=== PATIENT | female | born 1960 | race Caucasian/White ===

== ENCOUNTER → 2017-10-20 08:28 | Outpatient (CLI) | payer OTHER, SELFPAY ==
[2017-10-20 12:36] LABS: Absolute Lymphocyte Count 2.02 X10^3/ul (0.83-4.51); Absolute Neutrophil Count 4.3 X10^3/uL (2.0-7.7); Basophil# 0.08 X10^3/uL; Basophil% 1.1 % (0-1); Eosinophil# 0.45 X10^3/uL; Eosinophils% 6.1 % (0-5); Hematocrit 39.5 % (37-47); Hemoglobin 12.4 g/dl (12.0-15.0); Lymphocyte # 2.02 X10^3/ul (4.0); Lymphocyte % 27.4 % (19-41); Mean Corp Hgb Conc 31.4 g/gl (32-36); Mean Corpuscular Hgb 27.1 pg (27.0-32.0); Mean Corpuscular Volume 86.4 fL (81-99); Mean Platelet Vol. 11.9 fl (6.2-12.0); Monocyte# 0.47 X10^3/uL; Monocyte% 6.4 % (0-10); Neutrophil # 4.34 X10^3/uL (2.7-7.7); Neutrophil % 58.9 % (47-70); Platelet Count 285 K/mm3 (150-450); RBC Distribution Width CV 15.3 % (11.6-14.6); RBC Distribution Width SD 48.4 fl (35.1-43.9); Red Blood Count 4.57 M/mm3 (4.2-5.4); White Blood Count 7.4 K/mm3 (4.4-11.0)
[2017-10-20 12:37] LABS: POSITIVE COUNT NO; POSITIVE DIFFERENTIAL NO; POSITIVE MORPHOLOGY NO
[2017-10-20 13:05] LABS: ALB/GLOB Ratio 0.9 RATIO (0.9-2.4); AST(SGOT) 23 U/L (15-37); Alanine Aminotransfer ALT/SGPT 29 U/L (13-56); Albumin, Serum 3.6 g/dL (3.2-5.0); Alkaline Phosphatase 95 U/L (45-117); Anion Gap 7 (5-15); BUN 17 mg/dL (7-18); Calcium,Total 9.1 mg/dL (8.5-10.1); Chloride 103 mmol/L (98-107); Cholesterol 189 mg/dL (200); EST Glomerular Filtration Rate 69 mL/min (>60); Est Glom Filt Rate - Afr Amer 83 mL/min (>60); Globulin 4.2 g/dL (2.2-4.2); Glucose 80 mg/dL (74-106); High Density Lipoprotein 62 mg/dL; Potassium 3.8 mmol/L (3.5-5.1); Protein, Total 7.8 g/dL (6.4-8.2); Sodium Level 140 mmol/L (136-145); Thyroid Stim Hormone (TSH) 1.76 uIU/mL (0.358-3.74); Triglycerides 107 mg/dL; Very Low Density Lipoprotein 21 mg/dL (5-40)
== END ==
PROVIDERS: Visit Provider Family Medicine
DX: I10 Essential (primary) hypertension (principal); E03.9 Hypothyroidism, unspecified; E66.9 Obesity, unspecified
CPT/HCPCS: 36415; 80053; 80061; 84443; 85025

== ENCOUNTER → 2017-11-10 19:14 | Outpatient (CLI) | payer OTHER, SELFPAY ==
--- NOTE | 2017-11-10 11:15 | EMB_PTH ---
PATIENT: PORSHA PEDRO LOC: [facility] U#:[id number] AGE/SX: 64/F ROOM: RE11/10/[address]: Dr. Mary Mendiola MD : 1960 BED: DIS: SPEC #: [id number] RECD: 11/10/17 17:18 STATUS: VERÓNICA SLIME #: [id number] ABIDA: 11/10/17 11:[address]: Mary Mendiola DEPT: SURGICAL PATHOLOGY RECD BY: Dulce Small Tissues: Endometrium, NOS Procedures: Surgery Specimen Level IV HEADER OPERATION: Endometrial biopsy PRE-OP DIAGNOSIS: Abnormal uterine bleeding TISSUE SUBMITTED: Endometrial lining MICROSCOPIC DIAGNOSIS Endometrial biopsy: Mildly disordered proliferative endometrium. ELVA:meaghan 11/12/17 MICROSCOPIC DESCRIPTION Slides are reviewed. GROSS DESCRIPTION Received is one container labeled with the patient's name and not further designated. The specimen consists of multiple irregular fragments of garcia mucoid tissue that in aggregate measure 2.5 x 2 x 0.1 cm. The specimen is totally submitted in one cassette. / SJ:rg 11/11/17 TC:5 CPT: 90107
[2017-11-15 10:06] LABS: HPV APTIMA, High Risk Positive (Negative)
== END ==
PROVIDERS: Visit Provider Obstetrics & Gynecology
DX: Z12.4 Encounter for screening for malignant neoplasm of cervix (principal); N93.9 Abnormal uterine and vaginal bleeding, unspecified
CPT/HCPCS: 88175; 88305; G0145

== ENCOUNTER → 2017-11-24 16:43 | Outpatient (CLI) | payer OTHER, SELFPAY ==
--- NOTE | 2017-11-24 16:44 | BI_ITS ---
MAMMOGRAPHY - BILATERAL SCREENING 3-D CRUZ SYNTHESIS REASON FOR EXAM: Female, 57 years old. Bilateral Screening 3-D tomosynthesis PERTINENT HISTORY: No significant family history. TECHNIQUE: 2-D mammograms and 3-D Cruz synthesis of the breast (s) were performed. CAD was performed. COMPARISON: 2016 FINDINGS: The breast composition is almost entirely fat. Scattered benign calcifications are seen. No dense spiculated masses or suspicious microcalcifications are identified. No architectural distortion is identified. There is no skin thickening or retraction. There has been no significant change since the prior study. BI/SCREENING MAMM (CAD), BILAT IMPRESSION: No mammographic signs of malignancy. Routine yearly mammograms recommended. ASSESSMENT CATEGORY: BIRADS Category 1: Negative. A letter regarding these results will be sent to the patient by the facility within 30 days. FOLLOW UP RECOMMENDATION: Yearly follow up mammogram recommended. (A) Approximately 10% of breast cancers are not detected by mammography. A normal mammogram should not delay biopsy of a clinically suspicious abnormality. Electronically Signed: Luis Hernandez MD at 13:25 EDT , Service support ,
== END ==
PROVIDERS: Family Provider Family Medicine; PCP Family Medicine; Visit Provider Obstetrics & Gynecology
DX: Z12.31 Encounter for screening mammogram for malignant neoplasm of breast (principal)
CPT/HCPCS: 77063; 77067

== ENCOUNTER → 2017-12-04 13:42 | Outpatient (CLI) | payer OTHER, SELFPAY ==
--- NOTE | 2017-12-04 13:44 | CT_ITS ---
STUDY: CT ABDOMEN AND PELVIS WITH CONTRAST REASON FOR EXAM: Female, 57 years old. INTRA-ABDOMINAL AND PELVIC SWELLING RADIATION DOSAGE (If Supplied By Facility): CTDIvol = ( 22.77 ) mGy, DLP = ( 2197.94 ) mGycm TECHNIQUE: Transaxial images were obtained from the dome of the diaphragm to the symphysis pubis without oral contrast. 100 ml of Isovue 300 contrast was administered. Sagittal and coronal images were reconstructed. Individualized dose optimization techniques were used for this CT. COMPARISON: None. FINDINGS: The visualized lung bases are unremarkable. The visualized portions of the heart are within normal limits. Normal liver. Normal gallbladder and extrahepatic biliary system. Normal spleen. There appears to be mild hypodensity of the inferior pancreatic head and uncinate process measuring 4.5 cm. See series 2 image 47. Normal bilateral adrenal glands. Normal right kidney. Normal left kidney. Normal visualized stomach. Normal small intestine. Normal colon. There is non-visualization of the appendix. There is mild atherosclerotic calcification of the abdominal aorta, without a demonstrated aneurysm. Normal inferior vena cava. There is a large cystic structure in the lower abdomen and pelvis measuring 23 x 18 x 12 cm. It measures slightly above simple fluid attenuation and is well-circumscribed and homogenous. It may arise from the right adnexa. Normal urinary bladder. Normal abdominal wall. There are diffuse degenerative changes of the visualized lumbar spine. CT/Abdomen/Pelvis WITH Contrast IMPRESSION: There is a large cystic structure in the abdomen and pelvis. It may arise from the right adnexa. There appears to be mild hypodensity of the pancreas. Electronically Signed: Deborah Amador MD at 14:35 EDT , Service support ,
[2017-12-06 09:07] LABS: Cancer Antigen 125 33.3 U/mL (0.0-38.1); Carcinoembryonic Antigen 1.2 ng/mL (0.0-4.7)
== END ==
PROVIDERS: Nurse Practitioner Women's Health; Family Provider Family Medicine; PCP Family Medicine; Visit Provider Obstetrics & Gynecology
DX: R19.00 Intra-abdominal and pelvic swelling, mass and lump, unspecified site (principal); N95.0 Postmenopausal bleeding
CPT/HCPCS: 36415; 74177; 82378; 86304; Q9967

== ENCOUNTER 2018-01-13 10:49 | Inpatient (IN) | payer OTHER, SELFPAY ==
[2018-01-06 10:58] VITALS: BP 148/64; PULSE 84; RESP 18; TEMP 37.2; O2SAT 95; BMI 49.3
[2018-01-06 12:10] LABS: Hematocrit 37.2 % (37-47); Hemoglobin 11.7 g/dl (12.0-15.0); Mean Corp Hgb Conc 31.5 g/gl (32-36); Mean Corpuscular Hgb 27.5 pg (27.0-32.0); Mean Corpuscular Volume 87.3 fL (81-99); Mean Platelet Vol. 11.1 fl (6.2-12.0); Platelet Count 267 K/mm3 (150-450); RBC Distribution Width CV 15.1 % (11.6-14.6); Red Blood Count 4.26 M/mm3 (4.2-5.4); White Blood Count 8.1 K/mm3 (4.4-11.0)
[2018-01-06 12:11] LABS: Scan Indicated on CBC? Y/N NO
[2018-01-06 13:07] LABS: Thyroid Stim Hormone (TSH) 1.22 uIU/mL (0.358-3.74)
[2018-01-13] VITALS (9 sets, daily range): BP systolic 147–163; BP diastolic 75–90; PULSE 71–99; RESP 16–18; TEMP 36.1–37.1; O2SAT 94–100; BMI 49.3
--- NOTE | 2018-01-13 | HYST_PTH ---
PATIENT: PORSHA PEDRO LOC: [facility] U#:[id number] AGE/SX: 57/F [place] [facility] [place]/13/[address]: Dr. Mary Mendiola MD : 1960 BED: 1 DIS: 01/15/2018 SPEC #: [id number] RECD: 01/14/18 09:53 STATUS: VERÓNICA REAdelso #: [id number] ABIDA: 01/13/18 00:[address]: Mary Mendiola DEPT: SURGICAL PATHOLOGY RECD BY: Ry Matos ENTERED: 01/14/18 09:53 SP TYPE: HYSTERECT OTHR DR: Dr. Margot Cerda MD Tissues: Uterus, NOS Procedures: Surgery Specimen Level V HEADER OPERATION: Total abdominal hysterectomy, salpingo-oophorectomy PRE-OP DIAGNOSIS: Postmenopausal bleeding, pelvic mass, intramural leiomyoma of uterus TISSUE SUBMITTED: Uterus, bilateral fallopian tubes and ovaries MICROSCOPIC DIAGNOSIS Uterus, bilateral fallopian tubes and ovaries, abdominal hysterectomy and salpingo-oophorectomy: Cervix ? chronic cystic cervicitis. Endometrium ? disordered proliferative endometrium to focal simple cystic hyperplasia without atypia. Endometrial polyps ? benign endometrial polyps with simple cystic hyperplasia without atypia. Myometrium ? adenomyosis. Bilateral fallopian tubes - no pathologic diagnosis. Left ovary ? mesothelial inclusion cysts. 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 SJ:meaghan 01/15/18 COMMENT Please make reference to previous specimen ([id number]) endometrial biopsy with diagnosis of mildly disordered proliferative endometrium. MICROSCOPIC DESCRIPTION Slides are reviewed. GROSS DESCRIPTION Received in fixative is one container labeled with the patient's name and designated uterus, bilateral fallopian tubes and ovaries. The specimen consists of a hysterectomy specimen consisting of uterus with cervix, attached proximal portion of the right fallopian tube and detached left fallopian tube and ovary and detached large cystic ovary with stretched out fallopian tube. The uterus with cervix weighs 116 gm and measures 9.5 x 7 x 4 cm. The serosal surface is garcia, glistening. The ectocervical mucosa is unremarkable. The external os is slit-like in contour. The endocervical canal measures 3.5 cm in length and the endocervical mucosa is garcia, glistening and unremarkable. The triangular endometrial cavity measures 5.5 cm in length and up to 3 cm in width. The endometrial cavity shows two polyps, one in the anterior uterine wall measuring 1.5 x 1 x 0.5 cm and one in the posterior uterine wall measuring 4 x 1.5 x 0.3 cm. The myometrial wall underneath the polyp is not indurated. The rest of the endometrium is garcia, glistening and measures <0.1 cm in thickness. Sections of the myometrial wall do not reveal any mass lesion and it measures up to 2 cm in thickness. The left fallopian tube measures 5 cm in length and 0.5 cm in diameter. The fimbrial end is identified. Sections reveal unremarkable cut surfaces. The left ovary measures 2.5 x 1 x 0.8 cm. Sections reveal unremarkable cut surfaces. Attached proximal portion of right fallopian tube measures 4 cm in length and 0.5 cm in diameter. Sections reveal unremarkable cut surfaces. The cystic ovary measures 26 x 21 x 15 cm and weighs 2600 gm. The stretched fallopian tube measures 19 cm in length and 0.3 cm in diameter. The fimbrial end is identified. The external surface of the ovary is smooth. No papillation is identified. The external surface is inked black. Focal areas of papillations are noted. The largest area of papillation measures 3 x 2 x 1 cm. The rest of the cyst wall is smooth and measures 0.1 cm in thickness. The ovary contains abhijeet, cloudy fluid. 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 endometrial polyps with underlying uterine wall, polyps are entirely submitted, 10 ? right fallopian tube and ovary, 11 ? rest of the left ovary, left ovary is submitted in entirety, 12 ? attached proximal portion of right fallopian tube, 13 ? right fallopian tube stretched over the cystic right ovary, 14-19 ? right ovary (15-19 contains the cystic ovary with area of papillations). / ELVA:meaghan 01/14/18 TC:1 CPT: 29583 x2
--- NOTE | 2018-01-13 10:06 | HP.PCM_ITS ---
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 Accompanied by: Is patient in pain?: Yes Pain scale (1-10): 2 Allergies penicillin G Allergy (Mild, Verified 12/18/17 10:24) Other Medications aspirin 81 mg chewable tablet 81 mg PO QDAY 11/10/17 [History Confirmed 12/18/17 ] cinnamon bark 500 mg capsule mg PO 11/10/17 [History Confirmed 12/18/17] clobetasol 0.05 % topical ointment 1 applic TOPICAL QHS #30 g 11/10/17 [Rx Confirmed 12/18/17] halobetasol propionate 0.05 % topical cream 1 applic TOPICAL QDAY 11/10/17 [ History Confirmed 12/18/17] levothyroxine 125 mcg tablet 125 mcg PO QDAY 11/10/17 [History Confirmed ] multivitamin,vb-vwgz-gfmuctqb tablet 1 tab PO QDAY 11/10/17 [History Confirmed 12/18/17] valsartan 160 mg-hydrochlorothiazide 25 mg tablet 1 tab PO QDAY 11/10/17 [ History Confirmed 12/18/17] fluoxetine 40 mg capsule 40 mg PO .every other day cap 12/18/17 [History Confirmed 12/18/17] Is last menstrual period known: No Patient : No : No PFSH PFSH Medical History Thyroid disorder (Acute) Surgical History History of ankle surgery (Acute) History of hernia repair (Acute) Family History Father Cancer lung-smoker Mother Diabetes Social History Smoking Status: Never smoker alcohol intake: current details: social substance use type: does not use caffeine: Yes what type of physical activity do you participate in: walking seatbelt use: always do you feel safe at home: Yes additional social history: Jacob- Both are retired Pregancy History 4 Elective abortions Hx Para 5 Spontaneous abortions Hx # Term Pregnancies Ectopic pregnancies Hx # Pregnancies Multiple births 1 # of living children Past Pregnancies Del. Date Name GA/Weeks Outcome Route Bth Weight Infant Gen Labor Lgth Anesthesia Del Locatn Provider FOB Unknown 1976 Pietro Unknown 1977 Crystal Unknown 1984 Lucila and Kym Unknown 1985 Eric Delivery Date: No notes to display Delivery Date: On 11/10/17 @ 11:11 Mary Mendiola TTTS around and shortly after Delivery Date: No notes to display Delivery Date: No notes to display HPI Colposcopy/pre op: Details: PORSHA PEDRO is a 57 year old who presents for preoperative visit. she is still having intermittent bleeding and pelvic pain and pressure. she wants to have a hysterectomy in addition to the ovarian removal due to the bleeding. she had a normal CEA and CA125 Female Reproductive History Questions: Metorrhagia: Yes, Sexually active: Yes, Dyspareunia: No ROS Const Constitutional: Reports system reviewed and no additional complaints, except as docu; denies chills, fever(s), weight loss or weight gain GI GI: Reports as per HPI; denies vomiting, nausea, constipation, cramping, bloating or abdominal pain : Reports as per HPI; denies vaginal dryness, vaginal discharge, urinary urgency, urinary frequency or urinary incontinence Exam Const General: cooperative, healthy appearing, comfortable, well developed Orientation: alert HENMT Head: normal to inspection Neck Neck: normal visual inspection Thyroid: thyroid normal Resp Effort & Inspection: normal respiratory effort GI Inspection: normal to inspection, distended Palpation: soft, no guarding, mass (large mass to 2 cm above umbilicus) Assessment & Plan Problems 1. Post-menopausal bleeding N95.0 us, emb 2. Pelvic mass R19.00 ct abdomen pelvis ordered 3. Intramural leiomyoma of uterus D25.1 Plan plan TAHBSO. normal cea and ca125. 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 discussed surgical risks including risks of anesthesia, infection , bleeding, injury to bowel, bladder or blood vessels, and patient wishes to proceed with surgery. Coding Level of Care Code Off vis,est,level 4 Diagnoses Post-menopausal bleeding N95.0 Pelvic mass R19.00 Intramural leiomyoma of uterus D25.1 Uterine leiomyoma location: intramural UPDATE- I have seen the patient and performed any clinically relevant updates to the history and physical exam. Mary Mendiola MD
[2018-01-13] MEDS: metroNIDAZOLE 500 MG Tablet PO (11:25)
[2018-01-13] MEDS: Lactated Ringers 1,000 ML 125 ML IV (18:06)
[2018-01-13] MEDS: Ketorolac 30 MG/ML Syringe IV (18:06)
--- NOTE | 2018-01-13 20:50 | PCM.OPRPT ---
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 She was prepped and draped in the normal sterile fashion. Bryant catheter was placed in the bladder SCDs were on and preoperative antibiotics were given. A Pfannenstiel skin incision was made with the scalpel and carried through the unknowingly of the fascia with the scalpel fascia was nicked in the midline incision extended laterally. Rectus bellies were dissected off superiorly and inferiorly sharply and bluntly and peritoneum entered digitally incision stretched laterally and an Kiki retractor was placed after the bowel was packed away. The right ovary was identified and noted to be enlarged significantly measuring approximately 25 x 20 x 18 cm. It was smooth in appearance and fluctuant being cystic. It was freely mobile and was lifted up out of the incision in the infundibular ligament and utero-ovarian ligament were both transected and suture ligated with 0 Monocryl. The left ovary and tube were noted to be within normal limits and the uterus was mildly enlarged with small fibroids present. The round ligaments were transected bilaterally and suture ligated and the broad ligament was opened up and the infundibulopelvic ligament vessels were double clamped cut and suture ligated with 0 Monocryl. The bladder flap was created taking down the vesicouterine peritoneum and the uterine vessels were skeletonized and clamped cut and suture ligated with 0 Monocryl bilaterally. The cardinal ligament were then clamped cut and suture ligated bilaterally with 0 Monocryl followed by progressive bites of the parametrium down to the level of the cervix. Good attention was paid to keep the bladder inferior to the clamps and dissected off of the cervix and lower uterine corpus. The clamps were then placed underneath the cervix bilaterally the uterus amputated off of the vaginal stump and the vaginal cuff was suture ligated with 0 Monocryl [id number] sutures ?3. Excellent hemostasis was noted with some raw appearance which was covered with Espinoza. all instruments removed from the abdomen and the peritoneum was closed with 3-0 Monocryl fascia closed with 0 PDS barbed suture, subcutaneous tissue reapproximated with 3-0 Monocryl and the skin closed with 4-0 Monocryl. Patient was awoken and taken recovery in stable condition. Grafts/Implants Used: none - Complications none - Admit VTE Documentation VTE Present on Admission: No
[2018-01-13] MEDS: oxyCODONE 5 MG Tablet PO (21:26)
[2018-01-14] MEDS: Ketorolac 30 MG/ML Syringe IV ×3 (00:02→12:30)
[2018-01-14] MEDS: Lactated Ringers 1,000 ML 125 ML IV ×2 (01:42→10:41)
[2018-01-14 03:20] VITALS: BP 133/65; PULSE 99; RESP 18; TEMP 36.3; O2SAT 94
[2018-01-14 05:32] LABS: Hematocrit 33.6 % (37-47); Hemoglobin 10.7 g/dl (12.0-15.0); Mean Corp Hgb Conc 31.8 g/gl (32-36); Mean Corpuscular Hgb 27.6 pg (27.0-32.0); Mean Corpuscular Volume 86.8 fL (81-99); Mean Platelet Vol. 11.2 fl (6.2-12.0); Platelet Count 304 K/mm3 (150-450); RBC Distribution Width CV 15.1 % (11.6-14.6); RBC Distribution Width SD 47.4 fl (35.1-43.9); Red Blood Count 3.87 M/mm3 (4.2-5.4)
[2018-01-14 05:33] LABS: Scan Indicated on CBC? Y/N NO
[2018-01-14] MEDS: Levothyroxine 125 MCG Tablet PO (05:38)
[2018-01-14] MEDS: oxyCODONE 5 MG Tablet PO ×3 (07:16→20:46)
[2018-01-14 07:45] VITALS: O2SAT 92
[2018-01-14 10:30] VITALS: BP 101/67; PULSE 75; RESP 18; TEMP 37; O2SAT 95
[2018-01-14] MEDS: Multivitamins,Ther W-Minerals Tablet 1 TABLET PO (10:33)
[2018-01-14] MEDS: hydroCHLOROthiazide 25 MG Tablet PO (10:33)
[2018-01-14] MEDS: Enoxaparin 40 MG/0.4 ML Syringe SC (10:41)
[2018-01-14] MEDS: FLUoxetine 20 MG Capsule 40 MG PO (10:41)
[2018-01-14 16:00] VITALS: BP 105/52; PULSE 72; RESP 16; TEMP 36.4; O2SAT 95
[2018-01-14] MEDS: Acetaminophen 500 MG Tablet 1000 MG PO (16:06)
[2018-01-14] MEDS: Ketorolac 10 MG Tablet PO (17:56)
--- NOTE | 2018-01-14 20:42 | PCM.PN.OB ---
Subjective: doing well no complaints no cp sob nv tolerating po - Physical Exam General: Alert, Oriented x3 Vital Signs Temp Pulse Resp BP Pulse Ox 97.6 F L 72 16 105/52 L 95 01/14/18 16:00 01/14/18 16:00 01/14/18 16:00 01/14/18 16:00 01/14/18 16:00 Oxygen Flow Rate (L/min) 1 Oxygen Delivery Method Room Air Weight: 324 lb 4.8 oz Body Mass Index (BMI) 49.3 Intake and Output for Last 24 Hours 01/12/18 01/13/18 01/14/18 23:59 23:59 23:59 Intake Total 1950 / 1950 4143 / 4143 Output Total 635 / 635 1335 / 1335 Balance 1315 / 1315 2808 / 2808 Laboratory Tests Past 24 Hrs 01/14/18 05:05 WBC 12.0 H RBC 3.87 L Hgb 10.7 L Hct 33.6 L MCV 86.8 MCH 27.6 MCHC 31.8 L RDW 15.1 H RDW Differential 47.4 H Plt Count 304 MPV 11.2 Medical Necessity - Tobacco Use Smoking Status: Former smoker Assessment/Plan All Active Problems (Last Reviewed 12/18/17 @ 10:24 by Margot Asher) Pelvic mass (Acute) Post-menopausal bleeding (Acute) s/p tahbso routine care ambulate increase po intake
--- NOTE | 2018-01-14 20:45 | DCINST_ITS ---
Discharge Diet: No Restrictions Discharge Activity: Return to Normal Activity, May Not Drive - while taking narcotic pain medications. May resume sexual activity in: 6-8 weeks Call your doctor if your incision/area has: Continuous Slow Oozing, Sudden Increased Bleeding, Increased Pain/ Swelling, Increased Redness, Foul Smelling Discharge Call your doctor if you observe: Fever of 101 or Higher Allergies/Adverse Reactions: Allergies penicillin G Allergy (Mild, Verified 01/06/18 10:54) Other METAL Allergy (Uncoded 01/06/18 10:55) Other Medications to take at Discharge aspirin 81 mg chewable tablet 81 mg PO QDAY 11/10/17 cinnamon bark 500 mg capsule 1,000 mg PO DAILY 11/10/17 levothyroxine 125 mcg tablet 125 mcg PO QDAY 11/10/17 multivitamin,cu-ctvv-ssqsmcpu tablet 1 tab PO QDAY 11/10/17 valsartan 160 mg-hydrochlorothiazide 25 mg tablet 1 tab PO QDAY 11/10/17 fluoxetine 40 mg capsule 40 mg PO .every other day cap 12/18/17 Clobetasol Propionate 1 applic TOPICAL QHS 01/06/18 Naproxen [Naprosyn] 250 - 500 mg PO Q8H PRN PRN #30 tab 01/13/18 Oxycodone HCl/Acetaminophen [Percocet 5-325] 1 - 2 tablet PO Q4H PRN PRN 7 Days #28 tablet 01/13/18 The following prescriptions were given: Oxycodone HCl/Acetaminophen [Percocet 5-325] 1 - 2 tablet PO Q4H PRN PRN 7 Days #28 tablet PRN Reason: Moderate-Severe pain Naproxen [Naprosyn] 250 - 500 mg PO Q8H PRN PRN #30 tab PRN Reason: MILD PAIN Primary Care Physician: Margot Cerda MD [Primary Care Provider] - Test Results: Test results from this visit will be discussed in further detail at your follow- up appointment, if applicable. Please Follow Up With: Mary Mendiola MD - [phone] When: in 2 weeks
[2018-01-14 20:48] VITALS: BP 106/53; PULSE 69; RESP 16; TEMP 36.8; O2SAT 95
[2018-01-15] MEDS: Ketorolac 10 MG Tablet PO ×3 (00:24→11:12)
[2018-01-15 00:28] VITALS: BP 106/60; PULSE 84; RESP 16; TEMP 36.8; O2SAT 95
[2018-01-15] MEDS: oxyCODONE 5 MG Tablet PO ×2 (04:12→09:16)
[2018-01-15 05:57] VITALS: BP 124/55; PULSE 78; RESP 16; TEMP 36.8; O2SAT 92
[2018-01-15] MEDS: Levothyroxine 125 MCG Tablet PO (05:59)
[2018-01-15 07:21] VITALS: O2SAT 93
[2018-01-15 07:55] VITALS: BP 118/62; PULSE 85; RESP 18; TEMP 36.7; O2SAT 94
[2018-01-15] MEDS: Enoxaparin 40 MG/0.4 ML Syringe SC (07:58)
[2018-01-15] MEDS: hydroCHLOROthiazide 25 MG Tablet PO (07:59)
[2018-01-15] MEDS: Multivitamins,Ther W-Minerals Tablet 1 TABLET PO (07:59)
--- NOTE | 2018-01-15 10:50 | CASEMGMT ---
SEE RN INO ASSESS LINK: D/C PLAN: HOME Intro role to RN INO. Pt sitting up in chair, awake/alert/oriented. Pt states was independent @ home, required no DME, and denies discharge needs. CM to follow for any discharge planning needs that may arise. Pt reports her has already picked up her new prescriptions. Kamille STEWARTN HEATH [place]CK[place]
== END 2018-01-15 13:33 | disposition home or self-care (01) | DRG 743 ==
LOC: ACINP 10:50 → MS2 12:39
PROVIDERS: Admitting Provider Obstetrics & Gynecology; Family Provider Family Medicine; PCP Family Medicine; Visit Provider Obstetrics & Gynecology
PROC: 0UT90ZZ Resection of Uterus, Open Approach (ICD-10-PCS; principal; 2018-01-13 12:10)
DX: N95.0 Postmenopausal bleeding (principal); D25.9 Leiomyoma of uterus, unspecified; N83.9 Noninflammatory disorder of ovary, fallopian tube and broad ligament, unspecified
CPT/HCPCS: 36415; 84443; 85027; 86850; 86900; 88307; 93005; J7120; J2405

== ENCOUNTER 2018-01-28 08:08 | Outpatient (RCR) | payer OTHER, SELFPAY ==
[2018-01-28 08:27] VITALS: BP 148/87; PULSE 77; RESP 18; TEMP 36.4; BMI 48.1
--- NOTE | 2018-01-28 10:00 | HP.PCM_ITS ---
(1) Surgical wound, non healing Status: Acute Current Visit: Yes Code(s): T81.89XA - Other complications of procedures, not elsewhere classified, initial encounter History of Present Illness Chief Complaint: Non healing surgical wound. History of Wound: Ms. Cowan is a 57 year old who was referred to the wound center due to non healing surgical wound and periwound ulceration. She had a hysterectomy about 2 weeks ago which was said to be uneventful however, she had a 2 week follow up yesterday and was noted to have worsening abdominal ulcerations around the wound site. She denies any known precipitating factor. She also reports feeling well otherwise. Past Medical History Allergies/Adverse Reactions: Allergies penicillin G Allergy (Mild, Verified 01/27/18 10:39) Other METAL Allergy (Uncoded 01/27/18 10:39) Other Home Medications: Ambulatory Orders Medication Instructions Recorded aspirin 81 mg chewable tablet 81 mg PO QDAY 11/10/17 cinnamon bark 500 mg capsule 1,000 mg PO DAILY 11/10/17 levothyroxine 125 mcg tablet 125 mcg PO QDAY 11/10/17 multivitamin,um-ryte-zwfuvplg 1 tab PO QDAY 11/10/17 tablet valsartan 160 1 tab PO QDAY 11/10/17 mg-hydrochlorothiazide 25 mg tablet fluoxetine 40 mg capsule 40 mg PO .every other day cap 12/18/17 Ibuprofen 600 mg PO 4X/DAY 01/28/18 Valsartan/Hydrochlorothiazide 1 each PO DAILY 01/28/18 [Valsartan-Hctz 160-25 mg Tab] Smoking Status: Former smoker Review of Systems Constitutional: Denies: Anorexia, Malaise, Weakness Eyes: Denies: Blurred vision, Pain, Redness HEENT: Denies: Difficulty Hearing, Difficulty Swallowing Cardiovascular: Denies: Chest Pain, Chest Tightness Respiratory: Denies: Cough, Hemoptysis Gastrointestinal: Denies: Hematemesis, Vomiting - Physical Exam Vital Signs Temp Pulse Resp BP 97.5 F L 77 18 148/87 H 01/28/18 08:27 01/28/18 08:27 01/28/18 08:27 01/28/18 08:27 General: Alert, Oriented x3, Cooperative, No apparent distress HEENT: Atraumatic Oral: Moist Mucosa Neck: Supple Lungs: Normal air movement Cardiovascular: Regular rate, Regular Rhythm Abdomen: Soft, Obese Extremities: No cyanosis Skin: Ulcer/ Wound Wound Measurements and Assessment WC - Nurse 1 - General Ulcer Measurement Start: 01/28/18 08:26 Freq: Status: Active Protocol: Activity Type Activity Date Activity User E-Sign Co-Sign Detail Recorded Client Recorded Date Recorded By Document 01/28/18 08:27 AN [id number] 01/28/18 08:53 AN 01/28/18 08:27 Wound Center Nurse 1 [Ulcer Assessment] 1. lower mid abd cluster -Combined with other wound No -Current Size (cm) - Length 4.4 -Current Size (cm) - Width 16.8 -Current Size (cm) - Depth 0.1 -Total Square Cm 73.92 -Photo Taken No -Tunneling No -Undermining/Tunneling No -Circular Undermining No -Classification - Thickness Full Thickness without Exposed Support Structure -Exudate Amt Small (1-33%) -Exudate Type Serosanguineous -Wound Margin Distinct, Outline Attached -Granulation Amt Medium (34-66%) -Granulation Quality [place] -Slough/Fibrin Yes -Necrosis Amt Small (1-33%) -Necrotic Tissue Type Adherent Slough -Structure Exposed N/A -Texture (Dianne-wound Skin Appearance) Assessed -Moisture (Dianne-wound Skin Appearance Assessed ) -Color (Dianne-wound Skin Appearance) Assessed -Temperature (Dianne-wound Skin No Abnormality Appearance) (Pt Warm) -Tenderness on Palpation (Dianne-wound No Skin Appearance) -Ulcer Cleansing Rinsed/ Irrigated with Saline -Foul Odor after Cleansing No -Anesthetic Used 5% Lidocaine Gel WC - Nurse 2 - General Ulcer CM Notes Start: 01/28/18 08:26 Freq: Status: Active Protocol: Activity Type Activity Date Activity User E-Sign Co-Sign Detail Recorded Client Recorded Date Recorded By Document 01/28/18 09:21 MW [id number] 01/28/18 09:29 MW 01/28/18 09:21 Wound Center Nurse 2 [Procedure/Treatment] -Time 09:21 -Correct Patient Yes -Correct Side, Site, Position Yes -Correct Procedure Yes -Procedure Performed Yes -Type of Procedure Debridement -Clinical Debridement Subcutaneous -Post Debridement Size (cm) - Length 4.0 -Post Debridement Size (cm) - Width 15.0 -Post Debridement Size (cm) - Depth 0.2 -Total Square Cm 60.00 -Wound/Ulcer Outcome Not Healed -Ulcer Cleansing Rinsed/ Irrigated with Saline -Foul Odor after Cleansing No -Bioengineered Tissue No -Bleeding Controlled with Pressure -Treatment Response Procedure Tolerated Well [See Physician Procedure note for Specifics] Pain Scale: 0-10 Numeric [Pain] -Is Patient Pain Free? Yes Musculoskeletal: No Muscle Wasting Neurological: Cranial nerves II-XII grossly intact Psych/Mental Status: Normal Affect Debridement Note Post-Debridement Measurements/Treatment WC - Nurse 2 - General Ulcer CM Notes Start: 01/28/18 08:26 Freq: Status: Active Protocol: Activity Type Activity Date Activity User E-Sign Co-Sign Detail Recorded Client Recorded Date Recorded By Document 01/28/18 09:21 MW [id number] 01/28/18 09:29 MW 01/28/18 09:21 Wound Center Nurse 2 1. lower mid abd cluster -Time 09:21 -Correct Patient Yes -Correct Side, Site, Position Yes -Correct Procedure Yes -Procedure Performed Yes -Type of Procedure Debridement -Clinical Debridement Subcutaneous -Post Debridement Size (cm) - Length 4.0 -Post Debridement Size (cm) - Width 15.0 -Post Debridement Size (cm) - Depth 0.2 -Total Square Cm 60.00 -Wound/Ulcer Outcome Not Healed -Ulcer Cleansing Rinsed/ Irrigated with Saline -Foul Odor after Cleansing No -Bioengineered Tissue No -Bleeding Controlled with Pressure -Treatment Response Procedure Tolerated Well Pain Scale: 0-10 Numeric Is Patient Pain Free? Yes Wound debrided: Abdominal Wound Grade/Stage: Stage II Type of Debridement: Excisional debridement Anesthesia Used: 4% Lidocaine Solution Depth: Down to and including healthy tissue, in the subcutaneous layer Percentage of wound debrided: 100 Instrument Used: 7mm curette Tissue Removed: Slough and devitalized tissue Severity: Fat Layer Exposed Amount of bleeding with debridement: Mild Bleeding Controlled with: Pressure Patient tolerated procedure well Assessment/Plan Active Problems (Last Reviewed 01/27/18 @ 10:40 by Marlyn Herndon) Surgical wound, non healing (Acute) Assessment: No healing surgical wound. Dianne wound ulceration. Intertriginous Dermatitis. Plan: Debridement done as documented above, procedure was well tolerated. 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 Cultures taken. Will await report before antibiotics. Apply krystle with adapatic over top. Change daily. Miconazole powder in the abdominal fold. Advised to not put the powder on the wound. 100% cotton underwear advised and loose fitting clothing also recommended. Increased protein intake. Follow up in 1 week. All her question were answered and she was advised to call with any questions or concerns.
== END 2018-01-31 23:59 ==
LOC: WC 08:08
PROVIDERS: Family Provider Family Medicine; PCP Family Medicine; Visit Provider Internal Medicine
DX: T81.4XXA Infection following a procedure, initial encounter (principal); L30.8 Other specified dermatitis; Z87.891 Personal history of nicotine dependence
CPT/HCPCS: 11042; 11045; 87070; 87075; 87186; 87205; 99213; G0463

== ENCOUNTER 2018-02-25 09:00 | Outpatient (RCR) | payer OTHER, SELFPAY ==
[2018-02-01 01:52] VITALS: BP 148/87; PULSE 77; RESP 18; TEMP 36.4
[2018-02-04 09:11] VITALS: BP 133/77; PULSE 85; RESP 18; TEMP 36.6
--- NOTE | 2018-02-04 10:19 | PN.PCM_ITS ---
(1) Postoperative wound cellulitis Status: Chronic Current Visit: Yes Code(s): T81.4XXA - Comment: wound center referral (2) Surgical wound, non healing Status: Chronic Current Visit: Yes Code(s): T81.89XA - Other complications of procedures, not elsewhere classified, initial encounter (3) Intertriginous skin ulcer with fat layer exposed Status: Chronic Current Visit: Yes Code(s): L98.492 - 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ulcer of skin of other sites with fat layer exposed Type of Wound Chief Complaint: Non healing surgical wound. History of Wound: Ms. Cowan is a 57 year old who was referred to the wound center due to non healing surgical wound and periwound ulceration. She had a hysterectomy about 2 weeks ago which was said to be uneventful however, she had a 2 week follow up yesterday and was noted to have worsening abdominal ulcerations around the wound site. She denies any known precipitating factor. She also reports feeling well otherwise. Progress of Wound: Stable. No new complaints at this time. - Physical Exam Vital Signs Temp Pulse Resp BP 98 F 85 18 133/77 H 02/04/18 09:11 02/04/18 09:11 02/04/18 09:11 02/04/18 09:11 General: Alert, Oriented x3, Cooperative, No apparent distress HEENT: Atraumatic Oral: Moist Mucosa Neck: Supple Lungs: Normal air movement Abdomen: Non Tender, Obese Skin: Ulcer/ Wound Wound Measurements and Assessment WC - Nurse 1 - General Ulcer Measurement Start: 02/04/18 09:11 Freq: Status: Active Protocol: Activity Type Activity Date Activity User E-Sign Co-Sign Detail Recorded Client Recorded Date Recorded By Document 02/04/18 09:11 RB [id number] 02/04/18 09:17 RB 02/04/18 09:11 Wound Center Nurse 1 [Ulcer Assessment] 1. lower mid abd cluster -Combined with other wound No -Current Size (cm) - Length 13.6 -Current Size (cm) - Width 3.2 -Current Size (cm) - Depth 0.2 -Total Square Cm 43.52 -Photo Taken No -Tunneling No -Undermining/Tunneling No -Circular Undermining No -Classification - Thickness Full Thickness without Exposed Support Structure -Exudate Amt Small (1-33%) -Exudate Type Serosanguineous -Wound Margin Distinct, Outline Attached -Granulation Amt Small (1-33%) -Granulation Quality [place] -Necrosis Amt Large (67-100%) -Necrotic Tissue Type Adherent Slough -Structure Exposed N/A -Texture (Dianne-wound Skin Appearance) Assessed -Moisture (Dianne-wound Skin Appearance Assessed ) -Color (Dianne-wound Skin Appearance) Assessed -Temperature (Dianne-wound Skin No Abnormality Appearance) (Pt Warm) -Tenderness on Palpation (Dianne-wound No Skin Appearance) -Ulcer Cleansing Rinsed/ Irrigated with Saline -Foul Odor after Cleansing No -Anesthetic Used 5% Lidocaine Gel WC - Nurse 2 - General Ulcer CM Notes Start: 02/04/18 09:11 Freq: Status: Active Protocol: Activity Type Activity Date Activity User E-Sign Co-Sign Detail Recorded Client Recorded Date Recorded By Document 02/04/18 09:24 MW [id number] 02/04/18 09:30 MW 02/04/18 09:24 Wound Center Nurse 2 [Procedure/Treatment] -Time 09:24 -Correct Patient Yes -Correct Side, Site, Position Yes -Correct Procedure Yes -Procedure Performed Yes -Type of Procedure Debridement -Clinical Debridement Subcutaneous -Post Debridement Size (cm) - Length 3.5 -Post Debridement Size (cm) - Width 13.2 -Post Debridement Size (cm) - Depth 0.3 -Total Square Cm 46.20 -Wound/Ulcer Outcome Not Healed -Ulcer Cleansing Rinsed/ Irrigated with Saline -Foul Odor after Cleansing No -Bioengineered Tissue No -Bleeding Controlled with Pressure -Treatment Response Procedure Tolerated Well [See Physician Procedure note for Specifics] Pain Scale: 0-10 Numeric [Pain] -Is Patient Pain Free? Yes Musculoskeletal: No Muscle Wasting Neurological: Cranial nerves II-XII grossly intact Psych/Mental Status: Normal Affect Debridement Note Post-Debridement Measurements/Treatment WC - Nurse 2 - General Ulcer CM Notes Start: 02/04/18 09:11 Freq: Status: Active Protocol: Activity Type Activity Date Activity User E-Sign Co-Sign Detail Recorded Client Recorded Date Recorded By Document 02/04/18 09:24 MW [id number] 02/04/18 09:30 MW 02/04/18 09:24 Wound Center Nurse 2 1. lower mid abd cluster -Time 09:24 -Correct Patient Yes -Correct Side, Site, Position Yes -Correct Procedure Yes -Procedure Performed Yes -Type of Procedure Debridement -Clinical Debridement Subcutaneous -Post Debridement Size (cm) - Length 3.5 -Post Debridement Size (cm) - Width 13.2 -Post Debridement Size (cm) - Depth 0.3 -Total Square Cm 46.20 -Wound/Ulcer Outcome Not Healed -Ulcer Cleansing Rinsed/ Irrigated with Saline -Foul Odor after Cleansing No -Bioengineered Tissue No -Bleeding Controlled with Pressure -Treatment Response Procedure Tolerated Well Pain Scale: 0-10 Numeric Is Patient Pain Free? Yes Wound debrided: Abdominal Wound Grade/Stage: Stage II Type of Debridement: Excisional debridement Anesthesia Used: 4% Lidocaine Solution, 5% Lidocaine Gel Depth: Down to and including healthy tissue, in the subcutaneous layer Percentage of wound debrided: 100 Instrument Used: 5mm curette Tissue Removed: Slough and devitalized tissue Severity: Fat Layer Exposed Amount of bleeding with debridement: Mild Bleeding Controlled with: Pressure Patient tolerated procedure well Assessment/Plan Active Problems (Last Reviewed 01/27/18 @ 10:40 by Marlyn Herndon) Surgical wound, non healing (Chronic) Intertriginous skin ulcer with fat layer exposed (Chronic) Postoperative wound cellulitis (Chronic) wound center referral Assessment: No healing surgical wound. Dianne wound ulceration. Intertriginous Dermatitis. Plan: Wound/Ulcer is improving in circumference and periwound dermatitis is also improving. However, still significant slough and new eschar noted. Debridement done as documented above, procedure was well tolerated. Will switch to Santyl. Apply daily.Will also start on Augmentin per culture. ( Not true penicillin allergy, has taken amoxicillin in the past without problems ). Continue Miconazole powder in the abdominal fold. Advised to not put the powder on the wound. 100% cotton underwear advised and loose fitting clothing also recommended. Increased protein intake. Follow up in 1 week. All her question were answered and she was advised to call with any questions or concerns.
[2018-02-11 08:29] VITALS: BP 134/67; PULSE 68; RESP 20; TEMP 36.3
--- NOTE | 2018-02-11 10:38 | PCM.WC.PN ---
(1) Postoperative wound cellulitis Status: Chronic Current Visit: Yes Code(s): T81.4XXA - Comment: wound center referral (2) Surgical wound, non healing Status: Chronic Current Visit: Yes Code(s): T81.89XA - Other complications of procedures, not elsewhere classified, initial encounter (3) Intertriginous skin ulcer with fat layer exposed Status: Chronic Current Visit: Yes Code(s): L98.492 - 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ulcer of skin of other sites with fat layer exposed Type of Wound Chief Complaint: Non healing surgical wound. History of Wound: Ms. Cowan is a 57 year old who was referred to the wound center due to non healing surgical wound and periwound ulceration. She had a hysterectomy about 2 weeks ago which was said to be uneventful however, she had a 2 week follow up yesterday and was noted to have worsening abdominal ulcerations around the wound site. She denies any known precipitating factor. She also reports feeling well otherwise. Progress of Wound: Stable. No new complaints at this time. - Physical Exam Vital Signs Temp Pulse Resp BP 97.3 F L 68 20 H 134/67 H 02/11/18 08:29 10 08:29 02/11/18 08:29 02/11/18 08:29 General: Alert, Oriented x3, Cooperative, No apparent distress HEENT: Atraumatic Oral: Moist Mucosa Neck: Supple Lungs: Normal air movement Abdomen: Soft, Obese Extremities: No cyanosis Skin: Ulcer/ Wound Wound Measurements and Assessment WC - Nurse 1 - General Ulcer Measurement Start: 02/04/18 09:11 Freq: Status: Active Protocol: Activity Type Activity Date Activity User E-Sign Co-Sign Detail Recorded Client Recorded Date Recorded By Document 02/11/18 08:29 DL [id number] 02/11/18 08:36 DL 02/11/18 08:29 Wound Center Nurse 1 [Ulcer Assessment] 1. lower mid abd cluster -Current Size (cm) - Length 3.6 -Current Size (cm) - Width 10.6 -Current Size (cm) - Depth 0.2 -Total Square Cm 38.16 -Photo Taken No -Exudate Amt Small (1-33%) -Exudate Type Serosanguineous -Wound Margin Thickened -Granulation Amt None Present (0 %) -Necrosis Amt Large (67-100%) -Necrotic Tissue Type Adherent Slough -Structure Exposed N/A -Texture (Dianne-wound Skin Appearance) Scarring -Moisture (Dianne-wound Skin Appearance No Abnormality ) -Color (Dianne-wound Skin Appearance) Rubor -Temperature (Dianne-wound Skin No Abnormality Appearance) (Pt Warm) -Ulcer Cleansing Rinsed/ Irrigated with Saline -Foul Odor after Cleansing No -Anesthetic Used 5% Lidocaine Gel - Nurse 2 - General Ulcer CM Notes Start: 02/04/18 09:11 Freq: Status: Active Protocol: Activity Type Activity Date Activity User E-Sign Co-Sign Detail Recorded Client Recorded Date Recorded By Document 02/11/18 08:49 MW [id number] 02/11/18 08:56 MW 02/11/18 08:49 Wound Center Nurse 2 [Procedure/Treatment] -Time 08:49 -Correct Patient Yes -Correct Side, Site, Position Yes -Correct Procedure Yes -Procedure Performed Yes -Type of Procedure Debridement -Clinical Debridement Subcutaneous -Post Debridement Size (cm) - Length 3.3 -Post Debridement Size (cm) - Width 10.8 -Post Debridement Size (cm) - Depth 0.2 -Total Square Cm 35.64 -Wound/Ulcer Outcome Not Healed -Ulcer Cleansing Rinsed/ Irrigated with Saline -Foul Odor after Cleansing No -Bioengineered Tissue No -Bleeding Controlled with Pressure -Treatment Response Procedure Tolerated Well [See Physician Procedure note for Specifics] Pain Scale: 0-10 Numeric [Pain] -Is Patient Pain Free? Yes Musculoskeletal: No Muscle Wasting Neurological: Cranial nerves II-XII grossly intact Psych/Mental Status: Normal Affect Debridement Note Post-Debridement Measurements/Treatment - Nurse 2 - General Ulcer CM Notes Start: 02/04/18 09:11 Freq: Status: Active Protocol: Activity Type Activity Date Activity User E-Sign Co-Sign Detail Recorded Client Recorded Date Recorded By Document 02/04/18 09:24 MW [id number] 02/04/18 09:30 MW Document 02/11/18 08:49 MW [id number] 02/11/18 08:56 MW 02/04/18 02/11/18 09:24 08:49 Wound Center Nurse 2 1. lower mid abd cluster -Time 09:24 08:49 -Correct Patient Yes Yes -Correct Side, Site, Position Yes Yes -Correct Procedure Yes Yes -Procedure Performed Yes Yes -Type of Procedure Debridement Debridement -Clinical Debridement Subcutaneous Subcutaneous -Post Debridement Size (cm) - Length 3.5 3.3 -Post Debridement Size (cm) - Width 13.2 10.8 -Post Debridement Size (cm) - Depth 0.3 0.2 -Total Square Cm 46.20 35.64 -Wound/Ulcer Outcome Not Healed Not Healed -Ulcer Cleansing Rinsed/ Rinsed/ Irrigated with Irrigated with Saline Saline -Foul Odor after Cleansing No No -Bioengineered Tissue No No -Bleeding Controlled with Pressure Pressure -Treatment Response Procedure Procedure Tolerated Well Tolerated Well Pain Scale: 0-10 Numeric Is Patient Pain Free? Yes Yes Wound debrided: Abdominal Wound Grade/Stage: Stage III Type of Debridement: Excisional debridement Anesthesia Used: 4% Lidocaine Solution Depth: Down to and including healthy tissue, in the subcutaneous layer Percentage of wound debrided: 100 Instrument Used: 7mm curette, #15 blade, Forceps Tissue Removed: Eschar, slough and devitalized tissue Severity: Fat Layer Exposed Amount of bleeding with debridement: Mild Bleeding Controlled with: Pressure Patient tolerated procedure well Assessment/Plan Active Problems (Last Reviewed 01/27/18 @ 10:40 by Marlyn Herndon) Surgical wound, non healing (Chronic) Intertriginous skin ulcer with fat layer exposed (Chronic) Postoperative wound cellulitis (Chronic) wound center referral Assessment: No healing surgical wound. Dianne wound ulceration. Intertriginous Dermatitis. Plan: Wound/Ulcer is improving in circumference and periwound dermatitis has resolved. Still significant slough and eschar. Unroofing of eschar done today. Debridement done as documented above, procedure was well tolerated. Continue Santyl. Apply daily. She has completed her course of antibiotic. Continue Miconazole powder in the abdominal fold. Advised to not put the powder on the wound. 100% cotton underwear advised and loose fitting clothing also recommended. Increased protein intake. Follow up in 2 weeks. All her question were answered and she was advised to call with any questions or concerns. This note was generated with [employer] software. It may contain incorrect words, spelling, and punctuation that were not noted in checking the note before signing.
[2018-02-25 09:06] VITALS: BP 137/66; PULSE 78; RESP 18; TEMP 36.4
--- NOTE | 2018-02-25 11:08 | PCM.WC.PN ---
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 History of Wound: Ms. Cowan is a 57 year old who was referred to the wound center due to non healing surgical wound and periwound ulceration. She had a hysterectomy about 2 weeks ago which was said to be uneventful however, she had a 2 week follow up yesterday and was noted to have worsening abdominal ulcerations around the wound site. She denies any known precipitating factor. She also reports feeling well otherwise. Progress of Wound: Stable. No new complaints at this time. - Physical Exam Vital Signs Temp Pulse Resp BP 97.5 F L 78 18 137/66 H 02/25/18 09:06 02/25/18 09:06 02/25/18 09:06 02/25/18 09:06 General: Alert, Oriented x3, Cooperative, No apparent distress HEENT: Atraumatic, Normocephalic Oral: Moist Mucosa Neck: Supple Lungs: Normal air movement Abdomen: Soft, Non Tender, Obese Extremities: No cyanosis Skin: Ulcer/ Wound Wound Measurements and Assessment WC - Nurse 1 - General Ulcer Measurement Start: 02/04/18 09:11 Freq: Status: Active Protocol: Activity Type Activity Date Activity User E-Sign Co-Sign Detail Recorded Client Recorded Date Recorded By Document 02/25/18 09:06 [id number] 02/25/18 09:08 02/25/18 09:06 Wound Center Nurse 1 [Ulcer Assessment] 1. lower mid abd cluster -Combined with other wound No -Current Size (cm) - Length 2.0 -Current Size (cm) - Width 10 -Current Size (cm) - Depth 0.2 -Total Square Cm 20.0 -Photo Taken No -Epithelialization None Present -Tunneling No -Undermining/Tunneling No -Circular Undermining No -Exudate Amt Small (1-33%) -Exudate Type Serosanguineous -Wound Margin Distinct, Outline Attached -Granulation Amt None Present (0 %) -Slough/Fibrin Yes -Necrosis Amt Large (67-100%) -Necrotic Tissue Type Adherent Slough -Structure Exposed Fat Layer Exposed -Texture (Dianne-wound Skin Appearance) Assessed Scarring -Moisture (Dianne-wound Skin Appearance Assessed ) Weeping -Color (Dianne-wound Skin Appearance) No Abnormality Assessed -Temperature (Dianne-wound Skin No Abnormality Appearance) (Pt Warm) -Tenderness on Palpation (Dianne-wound No Skin Appearance) -Ulcer Cleansing Rinsed/ Irrigated with Saline -Foul Odor after Cleansing No -Anesthetic Used 5% Lidocaine Gel WC - Nurse 2 - General Ulcer CM Notes Start: 02/04/18 09:11 Freq: Status: Active Protocol: Activity Type Activity Date Activity User E-Sign Co-Sign Detail Recorded Client Recorded Date Recorded By Document 02/25/18 09:18 MW [id number] 02/25/18 09:24 MW 02/25/18 09:18 Wound Center Nurse 2 [Procedure/Treatment] -Time 09:19 -Correct Patient Yes -Correct Side, Site, Position Yes -Correct Procedure Yes -Procedure Performed Yes -Type of Procedure Debridement -Clinical Debridement Subcutaneous -Post Debridement Size (cm) - Length 1.8 -Post Debridement Size (cm) - Width 10.5 -Post Debridement Size (cm) - Depth 0.6 -Total Square Cm 18.90 -Wound/Ulcer Outcome Not Healed -Ulcer Cleansing Rinsed/ Irrigated with Saline -Foul Odor after Cleansing No -Bioengineered Tissue No -Bleeding Controlled with Pressure -Treatment Response Procedure Tolerated Well [See Physician Procedure note for Specifics] Pain Scale: 0-10 Numeric [Pain] -Is Patient Pain Free? Yes Musculoskeletal: No Muscle Wasting Neurological: Cranial nerves II-XII grossly intact Psych/Mental Status: Normal Affect Debridement Note Post-Debridement Measurements/Treatment WC - Nurse 2 - General Ulcer CM Notes Start: 02/04/18 09:11 Freq: Status: Active Protocol: Activity Type Activity Date Activity User E-Sign Co-Sign Detail Recorded Client Recorded Date Recorded By Document 02/04/18 09:24 MW [id number] 02/04/18 09:30 MW Document 02/11/18 08:49 MW [id number] 02/11/18 08:56 MW Document 02/25/18 09:18 MW [id number] 02/25/18 09:24 MW 02/04/18 02/11/18 02/25/18 09:24 08:49 09:18 Wound Center Nurse 2 1. lower mid abd cluster -Time 09:24 08:49 09:19 -Correct Patient Yes Yes Yes -Correct Side, Site, Position Yes Yes Yes -Correct Procedure Yes Yes Yes -Procedure Performed Yes Yes Yes -Type of Procedure Debridement Debridement Debridement -Clinical Debridement Subcutaneous Subcutaneous Subcutaneous -Post Debridement Size (cm) - Length 3.5 3.3 1.8 -Post Debridement Size (cm) - Width 13.2 10.8 10.5 -Post Debridement Size (cm) - Depth 0.3 0.2 0.6 -Total Square Cm 46.20 35.64 18.90 -Wound/Ulcer Outcome Not Healed Not Healed Not Healed -Ulcer Cleansing Rinsed/ Rinsed/ Rinsed/ Irrigated with Irrigated with Irrigated with Saline Saline Saline -Foul Odor after Cleansing No No No -Bioengineered Tissue No No No -Bleeding Controlled with Pressure Pressure Pressure -Treatment Response Procedure Procedure Procedure Tolerated Well Tolerated Well Tolerated Well Pain Scale: 0-10 Numeric Is Patient Pain Free? Yes Yes Yes Wound debrided: Abdominal Wound Grade/Stage: Stage III Type of Debridement: Excisional debridement Anesthesia Used: 4% Lidocaine Solution Depth: Down to and including healthy tissue, in the subcutaneous layer Percentage of wound debrided: 100 Instrument Used: 7mm curette, #15 blade, Forceps Tissue Removed: Slough and devitalized tissue Severity: Fat Layer Exposed Amount of bleeding with debridement: Mild Bleeding Controlled with: Pressure Patient tolerated procedure well Assessment/Plan Active Problems (Last Reviewed 02/23/18 @ 10:04 by Marlyn Herndon) Surgical wound, non healing (Chronic) Intertriginous skin ulcer with fat layer exposed (Chronic) Assessment: No healing surgical wound. Dianne wound ulceration. Intertriginous Dermatitis. Plan: Slough and appears to have improved with total unroofing of eschar. Significant slough burden beneath the eschar. Cultures taken. Debridement done as documented above, procedure was well tolerated. Continue Santyl. Apply daily. We will possibly switch to something else next week. Continue Miconazole powder in the abdominal fold. Advised to not put the powder on the wound. 100% cotton underwear advised and loose fitting clothing also recommended. Increased protein intake. Follow up in 1 weeks. All her question were answered and she was advised to call with any questions or concerns. This note was generated with [employer] software. It may contain incorrect words, spelling, and punctuation that were not noted in checking the note before signing.
--- NOTE | 2018-02-25 11:11 | PN.PCM_ITS ---
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 History of Wound: Ms. Cowan is a 57 year old who was referred to the wound ce nter due to non healing surgical wound and periwound ulceration. She had a hysterectomy about 2 weeks ago which was said to be uneventful however, she had a 2 week follow up yesterday and was noted to have worsening abdominal ulcerations around the wound site. She denies any known precipitating factor. She also reports feeling well otherwise. Progress of Wound: Stable. No new complaints at this time. - Physical Exam Vital Signs Temp Pulse Resp BP 97.5 F L 78 18 137/66 H 02/25/18 09:06 02/25/18 09:06 02/25/18 09:06 02/25/18 09:06 General: Alert, Oriented x3, Cooperative, No apparent distress HEENT: Atraumatic, Normocephalic Oral: Moist Mucosa Neck: Supple Lungs: Normal air movement Abdomen: Soft, Non Tender, Obese Extremities: No cyanosis Skin: Ulcer/ Wound Wound Measurements and Assessment WC - Nurse 1 - General Ulcer Measurement Start: 02/04/18 09:11 Freq: Status: Active Protocol: Activity Type Activity Date Activity User E-Sign Co-Sign Detail Recorded Client Recorded Date Recorded By Document 02/25/18 09:06 [id number] 02/25/18 09:08 02/25/18 09:06 Wound Center Nurse 1 [Ulcer Assessment] 1. lower mid abd cluster -Combined with other wound No -Current Size (cm) - Length 2.0 -Current Size (cm) - Width 10 -Current Size (cm) - Depth 0.2 -Total Square Cm 20.0 -Photo Taken No -Epithelialization None Present -Tunneling No -Undermining/Tunneling No -Circular Undermining No -Exudate Amt Small (1-33%) -Exudate Type Serosanguineous -Wound Margin Distinct, Outline Attached -Granulation Amt None Present (0 %) -Slough/Fibrin Yes -Necrosis Amt Large (67-100%) -Necrotic Tissue Type Adherent Slough -Structure Exposed Fat Layer Exposed -Texture (Dianne-wound Skin Appearance) Assessed Scarring -Moisture (Dianne-wound Skin Appearance Assessed ) Weeping -Color (Dianne-wound Skin Appearance) No Abnormality Assessed -Temperature (Dianne-wound Skin No Abnormality Appearance) (Pt Warm) -Tenderness on Palpation (Dianne-wound No Skin Appearance) -Ulcer Cleansing Rinsed/ Irrigated with Saline -Foul Odor after Cleansing No -Anesthetic Used 5% Lidocaine Gel WC - Nurse 2 - General Ulcer CM Notes Start: 02/04/18 09:11 Freq: Status: Active Protocol: Activity Type Activity Date Activity User E-Sign Co-Sign Detail Recorded Client Recorded Date Recorded By Document 02/25/18 09:18 MW [id number] 02/25/18 09:24 MW 02/25/18 09:18 Wound Center Nurse 2 [Procedure/Treatment] -Time 09:19 -Correct Patient Yes -Correct Side, Site, Position Yes -Correct Procedure Yes -Procedure Performed Yes -Type of Procedure Debridement -Clinical Debridement Subcutaneous -Post Debridement Size (cm) - Length 1.8 -Post Debridement Size (cm) - Width 10.5 -Post Debridement Size (cm) - Depth 0.6 -Total Square Cm 18.90 -Wound/Ulcer Outcome Not Healed -Ulcer Cleansing Rinsed/ Irrigated with Saline -Foul Odor after Cleansing No -Bioengineered Tissue No -Bleeding Controlled with Pressure -Treatment Response Procedure Tolerated Well [See Physician Procedure note for Specifics] Pain Scale: 0-10 Numeric [Pain] -Is Patient Pain Free? Yes Musculoskeletal: No Muscle Wasting Neurological: Cranial nerves II-XII grossly intact Psych/Mental Status: Normal Affect Debridement Note Post-Debridement Measurements/Treatment WC - Nurse 2 - General Ulcer CM Notes Start: 02/04/18 09:11 Freq: Status: Active Protocol: Activity Type Activity Date Activity User E-Sign Co-Sign Detail Recorded Client Recorded Date Recorded By Document 02/04/18 09:24 MW [id number] 02/04/18 09:30 MW Document 02/11/18 08:49 MW [id number] 02/11/18 08:56 MW Document 02/25/18 09:18 MW [id number] 02/25/18 09:24 MW 02/04/18 02/11/18 02/25/18 09:24 08:49 09:18 Wound Center Nurse 2 1. lower mid abd cluster -Time 09:24 08:49 09:19 -Correct Patient Yes Yes Yes -Correct Side, Site, Position Yes Yes Yes -Correct Procedure Yes Yes Yes -Procedure Performed Yes Yes Yes -Type of Procedure Debridement Debridement Debridement -Clinical Debridement Subcutaneous Subcutaneous Subcutaneous -Post Debridement Size (cm) - Length 3.5 3.3 1.8 -Post Debridement Size (cm) - Width 13.2 10.8 10.5 -Post Debridement Size (cm) - Depth 0.3 0.2 0.6 -Total Square Cm 46.20 35.64 18.90 -Wound/Ulcer Outcome Not Healed Not Healed Not Healed -Ulcer Cleansing Rinsed/ Rinsed/ Rinsed/ Irrigated with Irrigated with Irrigated with Saline Saline Saline -Foul Odor after Cleansing No No No -Bioengineered Tissue No No No -Bleeding Controlled with Pressure Pressure Pressure -Treatment Response Procedure Procedure Procedure Tolerated Well Tolerated Well Tolerated Well Pain Scale: 0-10 Numeric Is Patient Pain Free? Yes Yes Yes Wound debrided: Abdominal Wound Grade/Stage: Stage III Type of Debridement: Excisional debridement Anesthesia Used: 4% Lidocaine Solution Depth: Down to and including healthy tissue, in the subcutaneous layer Percentage of wound debrided: 100 Instrument Used: 7mm curette, #15 blade, Forceps Tissue Removed: Slough and devitalized tissue Severity: Fat Layer Exposed Amount of bleeding with debridement: Mild Bleeding Controlled with: Pressure Patient tolerated procedure well Assessment/Plan Active Problems (Last Reviewed 02/23/18 @ 10:04 by Marlyn Herndon) Surgical wound, non healing (Chronic) Intertriginous skin ulcer with fat layer exposed (Chronic) Assessment: No healing surgical wound. Dianne wound ulceration. Intertriginous Dermatitis. Plan: Slough and appears to have improved with total unroofing of eschar. Significant slough burden beneath the eschar. Cultures taken. Debridement done as documented above, procedure was well tolerated. Continue Santyl. Apply daily. We will possibly switch to something else next week. Continue Mi conazole powder in the abdominal fold. Advised to not put the powder on the wound. 100% cotton underwear advised and loose fitting clothing also recommended. Increased protein intake. Follow up in 1 weeks. All her question were answered and she was advised to call with any questions or concerns. This note was generated with [employer] software. It may contain incorrect words, spelling, and punctuation that were not noted in checking the note before signing.
== END 2018-03-03 23:59 ==
LOC: WC 09:00
PROVIDERS: Family Provider Family Medicine; PCP Family Medicine; Referring Provider Internal Medicine; Visit Provider Internal Medicine
DX: T81.49XA Infection following a procedure, other surgical site, initial encounter (principal); L30.9 Dermatitis, unspecified
CPT/HCPCS: 11042; 11045; 87070; 87075; 87077; 87186; 87205

== ENCOUNTER 2018-04-01 11:30 | Outpatient (RCR) | payer OTHER, SELFPAY ==
[2018-03-04 01:48] VITALS: BP 137/66; PULSE 78; RESP 18; TEMP 36.4
[2018-03-04 11:32] VITALS: BP 158/72; PULSE 87; RESP 18; TEMP 36.6
--- NOTE | 2018-03-04 13:10 | PCM.WC.PN ---
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 History of Wound: Ms. Cowan is a 57 year old who was referred to the wound center due to non healing surgical wound and periwound ulceration. She had a hysterectomy about 2 weeks ago which was said to be uneventful however, she had a 2 week follow up yesterday and was noted to have worsening abdominal ulcerations around the wound site. She denies any known precipitating factor. She also reports feeling well otherwise. Progress of Wound: Stable. No new complaints at this time. - Physical Exam Vital Signs Temp Pulse Resp BP 97.8 F 87 18 158/72 H 03/04/18 11:32 03/04/18 11:32 03/04/18 11:32 03/04/18 11:32 General: Alert, Oriented x3, Cooperative, No apparent distress HEENT: Atraumatic, Normocephalic Oral: Moist Mucosa Neck: Supple Lungs: Normal air movement Abdomen: Soft, Obese Extremities: No cyanosis Skin: Ulcer/ Wound Wound Measurements and Assessment WC - Nurse 1 - General Ulcer Measurement Start: 03/04/18 11:32 Freq: Status: Active Protocol: Activity Type Activity Date Activity User E-Sign Co-Sign Detail Recorded Client Recorded Date Recorded By Document 03/04/18 11:32 [id number] 03/04/18 11:39 RB 03/04/18 11:32 Wound Center Nurse 1 [Ulcer Assessment] 1. lower mid abd cluster -Combined with other wound No -Current Size (cm) - Length 9.8 -Current Size (cm) - Width 1.1 -Current Size (cm) - Depth 1.2 -Total Square Cm 10.78 -Photo Taken No -Tunneling No -Undermining/Tunneling No -Circular Undermining No -Exudate Amt Medium (34-66%) -Exudate Type Serosanguineous -Wound Margin Thickened & Rolled Under -Granulation Amt Medium (34-66%) -Granulation Quality [place] Red -Necrosis Amt Medium (34-66%) -Necrotic Tissue Type Adherent Slough -Structure Exposed N/A -Texture (Dianne-wound Skin Appearance) Assessed -Moisture (Dianne-wound Skin Appearance Assessed ) -Color (Dianne-wound Skin Appearance) Assessed -Temperature (Dianne-wound Skin No Abnormality Appearance) (Pt Warm) -Tenderness on Palpation (Dianne-wound No Skin Appearance) -Ulcer Cleansing Rinsed/ Irrigated with Saline -Foul Odor after Cleansing No -Anesthetic Used 5% Lidocaine Gel WC - Nurse 2 - General Ulcer CM Notes Start: 03/04/18 11:32 Freq: Status: Active Protocol: Activity Type Activity Date Activity User E-Sign Co-Sign Detail Recorded Client Recorded Date Recorded By Document 03/04/18 11:48 MW [id number] 03/04/18 11:52 MW 03/04/18 11:48 Wound Center Nurse 2 [Procedure/Treatment] -Time 11:48 -Correct Patient Yes -Correct Side, Site, Position Yes -Correct Procedure Yes -Procedure Performed Yes -Type of Procedure Debridement -Clinical Debridement Subcutaneous -Post Debridement Size (cm) - Length 1.0 -Post Debridement Size (cm) - Width 9.5 -Post Debridement Size (cm) - Depth 1.4 -Total Square Cm 9.50 -Wound/Ulcer Outcome Not Healed -Ulcer Cleansing Rinsed/ Irrigated with Saline -Foul Odor after Cleansing No -Bioengineered Tissue No -Bleeding Controlled with Pressure -Treatment Response Procedure Tolerated Well [See Physician Procedure note for Specifics] Pain Scale: 0-10 Numeric [Pain] -Is Patient Pain Free? Yes Musculoskeletal: No Muscle Wasting Neurological: Cranial nerves II-XII grossly intact Psych/Mental Status: Normal Affect Debridement Note Post-Debridement Measurements/Treatment WC - Nurse 2 - General Ulcer CM Notes Start: 03/04/18 11:32 Freq: Status: Active Protocol: Activity Type Activity Date Activity User E-Sign Co-Sign Detail Recorded Client Recorded Date Recorded By Document 03/04/18 11:48 MW [id number] 03/04/18 11:52 MW 03/04/18 11:48 Wound Center Nurse 2 1. lower mid abd cluster -Time 11:48 -Correct Patient Yes -Correct Side, Site, Position Yes -Correct Procedure Yes -Procedure Performed Yes -Type of Procedure Debridement -Clinical Debridement Subcutaneous -Post Debridement Size (cm) - Length 1.0 -Post Debridement Size (cm) - Width 9.5 -Post Debridement Size (cm) - Depth 1.4 -Total Square Cm 9.50 -Wound/Ulcer Outcome Not Healed -Ulcer Cleansing Rinsed/ Irrigated with Saline -Foul Odor after Cleansing No -Bioengineered Tissue No -Bleeding Controlled with Pressure -Treatment Response Procedure Tolerated Well Pain Scale: 0-10 Numeric Is Patient Pain Free? Yes Wound debrided: Abdominal Wound Grade/Stage: Stage III Anesthesia Used: 4% Lidocaine Solution Depth: Down to and including healthy tissue, in the subcutaneous layer Percentage of wound debrided: 100 Instrument Used: 7mm curette Tissue Removed: Slough and devitalized tissue Severity: Fat Layer Exposed Amount of bleeding with debridement: Mild Bleeding Controlled with: Pressure Patient tolerated procedure well Assessment/Plan Active Problems (Last Reviewed 02/23/18 @ 10:04 by Marlyn Herndon) Surgical wound, non healing (Chronic) Intertriginous skin ulcer with fat layer exposed (Chronic) Assessment: No healing surgical wound. Dianne wound ulceration. Intertriginous Dermatitis. Plan: Debridement done as documented above, procedure was well tolerated. Total unroofing of eschar. Midpoint of wound now has a depth of about 1.6 cm. I believe she will benefit from a wound VAC/snap VAC. For now Genna daily with Adaptic over top until snap approval. Continue Miconazole powder in the abdominal fold. Advised to not put the powder on the wound. 100% cotton underwear advised and loose fitting clothing also recommended. Increased protein intake. Complete antibiotics per C&S. Follow up in 1 week. All her question were answered and she was advised to call with any questions or concerns. This note was generated with [employer] software. It may contain incorrect words, spelling, and punctuation that were not noted in checking the note before signing.
--- NOTE | 2018-03-04 13:16 | PN.PCM_ITS ---
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 History of Wound: Ms. Cowan is a 57 year old who was referred to the wound center due to non healing surgical wound and periwound ulceration. She had a hysterectomy about 2 weeks ago which was said to be uneventful however, she had a 2 week follow up yesterday and was noted to have worsening abdominal ulcerations around the wound site. She denies any known precipitating factor. She also reports feeling well otherwise. Progress of Wound: Stable. No new complaints at this time. - Physical Exam Vital Signs Temp Pulse Resp BP 97.8 F 87 18 158/72 H 03/04/18 11:32 03/04/18 11:32 03/04/18 11:32 03/04/18 11:32 General: Alert, Oriented x3, Cooperative, No apparent distress HEENT: Atraumatic, Normocephalic Oral: Moist Mucosa Neck: Supple Lungs: Normal air movement Abdomen: Soft, Obese Extremities: No cyanosis Skin: Ulcer/ Wound Wound Measurements and Assessment WC - Nurse 1 - General Ulcer Measurement Start: 03/04/18 11:32 Freq: Status: Active Protocol: Activity Type Activity Date Activity User E-Sign Co-Sign Detail Recorded Client Recorded Date Recorded By Document 03/04/18 11:32 [id number] 03/04/18 11:39 RB 03/04/18 11:32 Wound Center Nurse 1 [Ulcer Assessment] 1. lower mid abd cluster -Combined with other wound No -Current Size (cm) - Length 9.8 -Current Size (cm) - Width 1.1 -Current Size (cm) - Depth 1.2 -Total Square Cm 10.78 -Photo Taken No -Tunneling No -Undermining/Tunneling No -Circular Undermining No -Exudate Amt Medium (34-66%) -Exudate Type Serosanguineous -Wound Margin Thickened & Rolled Under -Granulation Amt Medium (34-66%) -Granulation Quality [place] Red -Necrosis Amt Medium (34-66%) -Necrotic Tissue Type Adherent Slough -Structure Exposed N/A -Texture (Dianne-wound Skin Appearance) Assessed -Moisture (Dianne-wound Skin Appearance Assessed ) -Color (Dianne-wound Skin Appearance) Assessed -Temperature (Dianne-wound Skin No Abnormality Appearance) (Pt Warm) -Tenderness on Palpation (Dianne-wound No Skin Appearance) -Ulcer Cleansing Rinsed/ Irrigated with Saline -Foul Odor after Cleansing No -Anesthetic Used 5% Lidocaine Gel WC - Nurse 2 - General Ulcer CM Notes Start: 03/04/18 11:32 Freq: Status: Active Protocol: Activity Type Activity Date Activity User E-Sign Co-Sign Detail Recorded Client Recorded Date Recorded By Document 03/04/18 11:48 MW [id number] 03/04/18 11:52 MW 03/04/18 11:48 Wound Center Nurse 2 [Procedure/Treatment] -Time 11:48 -Correct Patient Yes -Correct Side, Site, Position Yes -Correct Procedure Yes -Procedure Performed Yes -Type of Procedure Debridement -Clinical Debridement Subcutaneous -Post Debridement Size (cm) - Length 1.0 -Post Debridement Size (cm) - Width 9.5 -Post Debridement Size (cm) - Depth 1.4 -Total Square Cm 9.50 -Wound/Ulcer Outcome Not Healed -Ulcer Cleansing Rinsed/ Irrigated with Saline -Foul Odor after Cleansing No -Bioengineered Tissue No -Bleeding Controlled with Pressure -Treatment Response Procedure Tolerated Well [See Physician Procedure note for Specifics] Pain Scale: 0-10 Numeric [Pain] -Is Patient Pain Free? Yes Musculoskeletal: No Muscle Wasting Neurological: Cranial nerves II-XII grossly intact Psych/Mental Status: Normal Affect Debridement Note Post-Debridement Measurements/Treatment WC - Nurse 2 - General Ulcer CM Notes Start: 03/04/18 11:32 Freq: Status: Active Protocol: Activity Type Activity Date Activity User E-Sign Co-Sign Detail Recorded Client Recorded Date Recorded By Document 03/04/18 11:48 MW [id number] 03/04/18 11:52 MW 03/04/18 11:48 Wound Center Nurse 2 1. lower mid abd cluster -Time 11:48 -Correct Patient Yes -Correct Side, Site, Position Yes -Correct Procedure Yes -Procedure Performed Yes -Type of Procedure Debridement -Clinical Debridement Subcutaneous -Post Debridement Size (cm) - Length 1.0 -Post Debridement Size (cm) - Width 9.5 -Post Debridement Size (cm) - Depth 1.4 -Total Square Cm 9.50 -Wound/Ulcer Outcome Not Healed -Ulcer Cleansing Rinsed/ Irrigated with Saline -Foul Odor after Cleansing No -Bioengineered Tissue No -Bleeding Controlled with Pressure -Treatment Response Procedure Tolerated Well Pain Scale: 0-10 Numeric Is Patient Pain Free? Yes Wound debrided: Abdominal Wound Grade/Stage: Stage III Anesthesia Used: 4% Lidocaine Solution Depth: Down to and including healthy tissue, in the subcutaneous layer Percentage of wound debrided: 100 Instrument Used: 7mm curette Tissue Removed: Slough and devitalized tissue Severity: Fat Layer Exposed Amount of bleeding with debridement: Mild Bleeding Controlled with: Pressure Patient tolerated procedure well Assessment/Plan Active Problems (Last Reviewed 02/23/18 @ 10:04 by Marlyn Herndon) Surgical wound, non healing (Chronic) Intertriginous skin ulcer with fat layer exposed (Chronic) Assessment: No healing surgical wound. Dianne wound ulceration. Intertriginous Dermatitis. Plan: Debridement done as documented above, procedure was well tolerated. Total unroofing of eschar. Midpoint of wound now has a depth of about 1.6 cm. I believe she will benefit from a wound VAC/snap VAC. For now Genna daily with Adaptic over top until snap approval. Continue Miconazole powder in the abdominal fold. Advised to not put the powder on the wound. 100% cotton underwear advised and loose fitting clothing also recommended. Increased protein intake. Complete antibiotics per C&S. Follow up in 1 week. All her question were answered and she was advised to call with any questions or concerns. This note was generated with [employer] software. It may contain incorrect words, spelling, and punctuation that were not noted in checking the note before signing.
[2018-03-08 13:22] VITALS: BP 136/104; PULSE 84; RESP 16; TEMP 36.7
[2018-03-11 11:40] VITALS: BP 127/80; PULSE 81; RESP 18; TEMP 36.8
--- NOTE | 2018-03-11 12:20 | PCM.WC.PN ---
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 History of Wound: Ms. Cowan is a 57 year old who was referred to the wound center due to non healing surgical wound and periwound ulceration. She had a hysterectomy about 2 weeks ago which was said to be uneventful however, she had a 2 week follow up yesterday and was noted to have worsening abdominal ulcerations around the wound site. She denies any known precipitating factor. She also reports feeling well otherwise. Progress of Wound: Improving depth. No new complaints at this time. Has had the Vac on for 4 days. - Physical Exam Vital Signs Temp Pulse Resp BP 98.2 F 81 18 127/80 H 03/11/18 11:40 03/11/18 11:40 03/11/18 11:40 03/11/18 11:40 General: Alert, Oriented x3, Cooperative, No apparent distress HEENT: Atraumatic Oral: Moist Mucosa Neck: Supple Lungs: Normal air movement Abdomen: Soft, Obese Extremities: No cyanosis Skin: Ulcer/ Wound Wound Measurements and Assessment WC - Nurse 1 - General Ulcer Measurement Start: 03/04/18 11:32 Freq: Status: Active Protocol: Activity Type Activity Date Activity User E-Sign Co-Sign Detail Recorded Client Recorded Date Recorded By Document 03/11/18 11:40 [id number] 03/11/18 11:53 03/11/18 11:40 Wound Center Nurse 1 [Ulcer Assessment] 1. lower mid abd cluster -Combined with other wound No -Current Size (cm) - Length 1.4 -Current Size (cm) - Width 7.0 -Current Size (cm) - Depth 0.5 -Total Square Cm 9.80 -Date of Last Picture (Recall this 03/11/18 field) -Photo Taken Yes -Epithelialization Medium 34-66% -Tunneling No -Undermining/Tunneling No -Circular Undermining No -Exudate Amt Small (1-33%) -Exudate Type Serosanguineous -Wound Margin Distinct, Outline Attached -Granulation Amt Medium (34-66%) -Granulation Quality [place] Red -Slough/Fibrin Yes -Necrosis Amt Medium (34-66%) -Necrotic Tissue Type Adherent Slough -Texture (Dianne-wound Skin Appearance) Assessed Scarring -Moisture (Dianne-wound Skin Appearance No Abnormality ) Assessed -Color (Dianne-wound Skin Appearance) No Abnormality Assessed -Temperature (Dianne-wound Skin No Abnormality Appearance) (Pt Warm) -Tenderness on Palpation (Dianne-wound No Skin Appearance) -Ulcer Cleansing Rinsed/ Irrigated with Saline -Foul Odor after Cleansing No -Anesthetic Used 4% Lidocaine Solution WC - Nurse 2 - General Ulcer CM Notes Start: 03/04/18 11:32 Freq: Status: Active Protocol: Activity Type Activity Date Activity User E-Sign Co-Sign Detail Recorded Client Recorded Date Recorded By Document 03/11/18 12:15 MW [id number] 03/11/18 12:19 MW 03/11/18 12:15 Wound Center Nurse 2 [Procedure/Treatment] -Time 12:15 -Correct Patient Yes -Correct Side, Site, Position Yes -Correct Procedure Yes -Procedure Performed Yes -Type of Procedure Debridement -Clinical Debridement Subcutaneous -Post Debridement Size (cm) - Length 1.2 -Post Debridement Size (cm) - Width 9.0 -Post Debridement Size (cm) - Depth 1.0 -Total Square Cm 10.80 -Wound/Ulcer Outcome Not Healed -Ulcer Cleansing Rinsed/ Irrigated with Saline -Foul Odor after Cleansing No -Bioengineered Tissue No -Bleeding Controlled with Pressure -Treatment Response Procedure Tolerated Well [See Physician Procedure note for Specifics] Pain Scale: 0-10 Numeric [Pain] -Is Patient Pain Free? Yes Musculoskeletal: No Muscle Wasting Neurological: Cranial nerves II-XII grossly intact Psych/Mental Status: Normal Affect Debridement Note Post-Debridement Measurements/Treatment WC - Nurse 2 - General Ulcer CM Notes Start: 03/04/18 11:32 Freq: Status: Active Protocol: Activity Type Activity Date Activity User E-Sign Co-Sign Detail Recorded Client Recorded Date Recorded By Document 03/04/18 11:48 MW [id number] 03/04/18 11:52 MW Document 03/11/18 12:15 MW [id number] 03/11/18 12:19 MW 03/04/18 03/11/18 11:48 12:15 Wound Center Nurse 2 1. lower mid abd cluster -Time 11:48 12:15 -Correct Patient Yes Yes -Correct Side, Site, Position Yes Yes -Correct Procedure Yes Yes -Procedure Performed Yes Yes -Type of Procedure Debridement Debridement -Clinical Debridement Subcutaneous Subcutaneous -Post Debridement Size (cm) - Length 1.0 1.2 -Post Debridement Size (cm) - Width 9.5 9.0 -Post Debridement Size (cm) - Depth 1.4 1.0 -Total Square Cm 9.50 10.80 -Wound/Ulcer Outcome Not Healed Not Healed -Ulcer Cleansing Rinsed/ Rinsed/ Irrigated with Irrigated with Saline Saline -Foul Odor after Cleansing No No -Bioengineered Tissue No No -Bleeding Controlled with Pressure Pressure -Treatment Response Procedure Procedure Tolerated Well Tolerated Well Pain Scale: 0-10 Numeric Is Patient Pain Free? Yes Yes Wound debrided: Abdominal Wound Grade/Stage: Stage III Type of Debridement: Excisional debridement Anesthesia Used: 4% Lidocaine Solution Depth: Down to and including healthy tissue, in the subcutaneous layer Percentage of wound debrided: 100 Instrument Used: 7mm curette Tissue Removed: Sloygh and devitalized tissue Severity: Fat Layer Exposed Amount of bleeding with debridement: Mild Bleeding Controlled with: Pressure Patient tolerated procedure well Assessment/Plan Active Problems (Last Reviewed 02/23/18 @ 10:04 by Marlyn Herndon) Surgical wound, non healing (Chronic) Intertriginous skin ulcer with fat layer exposed (Chronic) Assessment: No healing surgical wound. Dianne wound ulceration. Intertriginous Dermatitis. Plan: Debridement done as documented above, procedure was well tolerated. Tolerting Vac. Depth down to 1 cm. Continue Snap Vac. Nurse visit on Thursday. Continue Miconazole powder in the abdominal fold. Advised to not put the powder on the wound. 100% cotton underwear advised and loose fitting clothing also recommended. Increased protein intake. Follow up in 1 week with me.. All her question were answered and she was advised to call with any questions or concerns. This note was generated with [employer] software. It may contain incorrect words, spelling, and punctuation that were not noted in checking the note before signing.
--- NOTE | 2018-03-11 12:23 | PN.PCM_ITS ---
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 History of Wound: Ms. Cowan is a 57 year old who was referred to the wound center due to non healing surgical wound and periwound ulceration. She had a hysterectomy about 2 weeks ago which was said to be uneventful however, she had a 2 week follow up yesterday and was noted to have worsening abdominal ulcerations around the wound site. She denies any known precipitating factor. She also reports feeling well otherwise. Progress of Wound: Improving depth. No new complaints at this time. Has had the Vac on for 4 days. - Physical Exam Vital Signs Temp Pulse Resp BP 98.2 F 81 18 127/80 H 03/11/18 11:40 03/11/18 11:40 03/11/18 11:40 03/11/18 11:40 General: Alert, Oriented x3, Cooperative, No apparent distress HEENT: Atraumatic Oral: Moist Mucosa Neck: Supple Lungs: Normal air movement Abdomen: Soft, Obese Extremities: No cyanosis Skin: Ulcer/ Wound Wound Measurements and Assessment WC - Nurse 1 - General Ulcer Measurement Start: 03/04/18 11:32 Freq: Status: Active Protocol: Activity Type Activity Date Activity User E-Sign Co-Sign Detail Recorded Client Recorded Date Recorded By Document 03/11/18 11:40 [id number] 03/11/18 11:53 03/11/18 11:40 Wound Center Nurse 1 [Ulcer Assessment] 1. lower mid abd cluster -Combined with other wound No -Current Size (cm) - Length 1.4 -Current Size (cm) - Width 7.0 -Current Size (cm) - Depth 0.5 -Total Square Cm 9.80 -Date of Last Picture (Recall this 03/11/18 field) -Photo Taken Yes -Epithelialization Medium 34-66% -Tunneling No -Undermining/Tunneling No -Circular Undermining No -Exudate Amt Small (1-33%) -Exudate Type Serosanguineous -Wound Margin Distinct, Outline Attached -Granulation Amt Medium (34-66%) -Granulation Quality [place] Red -Slough/Fibrin Yes -Necrosis Amt Medium (34-66%) -Necrotic Tissue Type Adherent Slough -Texture (Dianne-wound Skin Appearance) Assessed Scarring -Moisture (Dianne-wound Skin Appearance No Abnormality ) Assessed -Color (Dianne-wound Skin Appearance) No Abnormality Assessed -Temperature (Dianne-wound Skin No Abnormality Appearance) (Pt Warm) -Tenderness on Palpation (Dianne-wound No Skin Appearance) -Ulcer Cleansing Rinsed/ Irrigated with Saline -Foul Odor after Cleansing No -Anesthetic Used 4% Lidocaine Solution WC - Nurse 2 - General Ulcer CM Notes Start: 03/04/18 11:32 Freq: Status: Active Protocol: Activity Type Activity Date Activity User E-Sign Co-Sign Detail Recorded Client Recorded Date Recorded By Document 03/11/18 12:15 MW [id number] 03/11/18 12:19 MW 03/11/18 12:15 Wound Center Nurse 2 [Procedure/Treatment] -Time 12:15 -Correct Patient Yes -Correct Side, Site, Position Yes -Correct Procedure Yes -Procedure Performed Yes -Type of Procedure Debridement -Clinical Debridement Subcutaneous -Post Debridement Size (cm) - Length 1.2 -Post Debridement Size (cm) - Width 9.0 -Post Debridement Size (cm) - Depth 1.0 -Total Square Cm 10.80 -Wound/Ulcer Outcome Not Healed -Ulcer Cleansing Rinsed/ Irrigated with Saline -Foul Odor after Cleansing No -Bioengineered Tissue No -Bleeding Controlled with Pressure -Treatment Response Procedure Tolerated Well [See Physician Procedure note for Specifics] Pain Scale: 0-10 Numeric [Pain] -Is Patient Pain Free? Yes Musculoskeletal: No Muscle Wasting Neurological: Cranial nerves II-XII grossly intact Psych/Mental Status: Normal Affect Debridement Note Post-Debridement Measurements/Treatment WC - Nurse 2 - General Ulcer CM Notes Start: 03/04/18 11:32 Freq: Status: Active Protocol: Activity Type Activity Date Activity User E-Sign Co-Sign Detail Recorded Client Recorded Date Recorded By Document 03/04/18 11:48 MW [id number] 03/04/18 11:52 MW Document 03/11/18 12:15 MW [id number] 03/11/18 12:19 MW 03/04/18 03/11/18 11:48 12:15 Wound Center Nurse 2 1. lower mid abd cluster -Time 11:48 12:15 -Correct Patient Yes Yes -Correct Side, Site, Position Yes Yes -Correct Procedure Yes Yes -Procedure Performed Yes Yes -Type of Procedure Debridement Debridement -Clinical Debridement Subcutaneous Subcutaneous -Post Debridement Size (cm) - Length 1.0 1.2 -Post Debridement Size (cm) - Width 9.5 9.0 -Post Debridement Size (cm) - Depth 1.4 1.0 -Total Square Cm 9.50 10.80 -Wound/Ulcer Outcome Not Healed Not Healed -Ulcer Cleansing Rinsed/ Rinsed/ Irrigated with Irrigated with Saline Saline -Foul Odor after Cleansing No No -Bioengineered Tissue No No -Bleeding Controlled with Pressure Pressure -Treatment Response Procedure Procedure Tolerated Well Tolerated Well Pain Scale: 0-10 Numeric Is Patient Pain Free? Yes Yes Wound debrided: Abdominal Wound Grade/Stage: Stage III Type of Debridement: Excisional debridement Anesthesia Used: 4% Lidocaine Solution Depth: Down to and including healthy tissue, in the subcutaneous layer Percentage of wound debrided: 100 Instrument Used: 7mm curette Tissue Removed: Sloygh and devitalized tissue Severity: Fat Layer Exposed Amount of bleeding with debridement: Mild Bleeding Controlled with: Pressure Patient tolerated procedure well Assessment/Plan Active Problems (Last Reviewed 02/23/18 @ 10:04 by Marlyn Herndon) Surgical wound, non healing (Chronic) Intertriginous skin ulcer with fat layer exposed (Chronic) Assessment: No healing surgical wound. Dianne wound ulceration. Intertriginous Dermatitis. Plan: Debridement done as documented above, procedure was well tolerated. Tolerting Vac. Depth down to 1 cm. Continue Snap Vac. Nurse visit on Thursday. Continue Miconazole powder in the abdominal fold. Advised to not put the powder on the wound. 100% cotton underwear advised and loose fitting clothing also recommended. Increased protein intake. Follow up in 1 week with me.. All her question were answered and she was advised to call with any questions or concerns. This note was generated with [employer] software. It may contain incorrect words, spelling, and punctuation that were not noted in checking the note before signing.
[2018-03-15 11:39] VITALS: BP 167/87; PULSE 67; RESP 18; TEMP 35.8
[2018-03-18 11:34] VITALS: BP 146/79; RESP 18; TEMP 36.4
--- NOTE | 2018-03-18 12:45 | PN.PCM_ITS ---
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 History of Wound: Ms. Cowan is a 57 year old who was referred to the wound center due to non healing surgical wound and periwound ulceration. She had a hysterectomy about 2 weeks ago which was said to be uneventful however, she had a 2 week follow up yesterday and was noted to have worsening abdominal ulcerations around the wound site. She denies any known precipitating factor. She also reports feeling well otherwise. Progress of Wound: Improving. No new complaints at this time. - Physical Exam Vital Signs Temp Pulse Resp BP 97.5 F L 67 18 146/79 H 03/18/18 11:34 03/15/18 11:39 03/18/18 11:34 03/18/18 11:34 General: Alert, Oriented x3, Cooperative, No apparent distress HEENT: Atraumatic, Normocephalic Oral: Moist Mucosa Neck: Supple Lungs: Normal air movement Abdomen: Soft, Non Tender, Obese Extremities: No cyanosis Skin: Ulcer/ Wound Wound Measurements and Assessment WC - Nurse 1 - General Ulcer Measurement Start: 03/04/18 11:32 Freq: Status: Active Protocol: Activity Type Activity Date Activity User E-Sign Co-Sign Detail Recorded Client Recorded Date Recorded By Document 03/18/18 11:34 [id number] 03/18/18 11:44 03/18/18 11:34 Wound Center Nurse 1 [Ulcer Assessment] 1. lower mid abd cluster -Combined with other wound No -Current Size (cm) - Length 1.2 -Current Size (cm) - Width 6.4 -Current Size (cm) - Depth 0.3 -Total Square Cm 7.68 -Photo Taken No -Epithelialization Small 1-33% -Tunneling No -Undermining/Tunneling No -Circular Undermining No -Exudate Amt Medium (34-66%) -Exudate Type Serosanguineous -Wound Margin Distinct, Outline Attached -Granulation Amt Small (1-33%) -Granulation Quality [place] -Slough/Fibrin Yes -Necrosis Amt None Present (0 %) -Necrotic Tissue Type Adherent Slough -Structure Exposed None/Limited to Skin Breakdown -Texture (Dianne-wound Skin Appearance) Not Assessed Scarring -Moisture (Dianne-wound Skin Appearance Assessed ) Maceration -Color (Dianne-wound Skin Appearance) No Abnormality Assessed -Temperature (Dianne-wound Skin No Abnormality Appearance) (Pt Warm) -Tenderness on Palpation (Dianne-wound No Skin Appearance) -Ulcer Cleansing Wound Cleanser -Foul Odor after Cleansing No -Anesthetic Used 4% Lidocaine Solution WC - Nurse 2 - General Ulcer CM Notes Start: 03/04/18 11:32 Freq: Status: Active Protocol: Activity Type Activity Date Activity User E-Sign Co-Sign Detail Recorded Client Recorded Date Recorded By Document 03/18/18 11:52 MW [id number] 03/18/18 11:56 MW 03/18/18 11:52 Wound Center Nurse 2 [Procedure/Treatment] -Time 11:53 -Correct Patient Yes -Correct Side, Site, Position Yes -Correct Procedure Yes -Procedure Performed Yes -Type of Procedure Debridement -Clinical Debridement Subcutaneous -Post Debridement Size (cm) - Length 1.0 -Post Debridement Size (cm) - Width 6.0 -Post Debridement Size (cm) - Depth 0.7 -Total Square Cm 6.00 -Wound/Ulcer Outcome Failed Flap -Ulcer Cleansing Rinsed/ Irrigated with Saline -Foul Odor after Cleansing No -Bioengineered Tissue No -Bleeding Controlled with Pressure -Treatment Response Procedure Tolerated Well [See Physician Procedure note for Specifics] Pain Scale: 0-10 Numeric [Pain] -Is Patient Pain Free? Yes Musculoskeletal: No Muscle Wasting Neurological: Cranial nerves II-XII grossly intact Psych/Mental Status: Normal Affect Debridement Note Post-Debridement Measurements/Treatment WC - Nurse 2 - General Ulcer CM Notes Start: 03/04/18 11:32 Freq: Status: Active Protocol: Activity Type Activity Date Activity User E-Sign Co-Sign Detail Recorded Client Recorded Date Recorded By Document 03/04/18 11:48 MW [id number] 03/04/18 11:52 MW Document 03/11/18 12:15 MW [id number] 03/11/18 12:19 MW Document 03/18/18 11:52 MW [id number] 03/18/18 11:56 MW 03/04/18 03/11/18 03/18/18 11:48 12:15 11:52 Wound Center Nurse 2 1. lower mid abd cluster -Time 11:48 12:15 11:53 -Correct Patient Yes Yes Yes -Correct Side, Site, Position Yes Yes Yes -Correct Procedure Yes Yes Yes -Procedure Performed Yes Yes Yes -Type of Procedure Debridement Debridement Debridement -Clinical Debridement Subcutaneous Subcutaneous Subcutaneous -Post Debridement Size (cm) - Length 1.0 1.2 1.0 -Post Debridement Size (cm) - Width 9.5 9.0 6.0 -Post Debridement Size (cm) - Depth 1.4 1.0 0.7 -Total Square Cm 9.50 10.80 6.00 -Wound/Ulcer Outcome Not Healed Not Healed Failed Flap -Ulcer Cleansing Rinsed/ Rinsed/ Rinsed/ Irrigated with Irrigated with Irrigated with Saline Saline Saline -Foul Odor after Cleansing No No No -Bioengineered Tissue No No No -Bleeding Controlled with Pressure Pressure Pressure -Treatment Response Procedure Procedure Procedure Tolerated Well Tolerated Well Tolerated Well Pain Scale: 0-10 Numeric Is Patient Pain Free? Yes Yes Yes Wound debrided: Abdominal wound Wound Grade/Stage: Stage III Type of Debridement: Excisional debridement Anesthesia Used: 4% Lidocaine Solution Depth: Down to and including healthy tissue, in the subcutaneous layer Percentage of wound debrided: 100 Instrument Used: 3mm curette Tissue Removed: Slough and devitalized tissue Severity: Fat Layer Exposed Amount of bleeding with debridement: Mild Bleeding Controlled with: Pressure Patient tolerated procedure well Assessment/Plan Active Problems (Last Reviewed 02/23/18 @ 10:04 by Marlyn Herndon) Surgical wound, non healing (Chronic) Intertriginous skin ulcer with fat layer exposed (Chronic) Assessment: No healing surgical wound. Dianne wound ulceration. Intertriginous Dermatitis. Plan: Improving wound. Debridement done as documented above, procedure was well tolerated. Continue Snap Vac. Nurse visit on Thursday. Continue Miconazole powder in the abdominal fold. Advised to not put the powder on the wound. 100% cotton underwear advised and loose fitting clothing also recommended. Increased protein intake. Follow up in 1 week with me.. All her question were answered and she was advised to call with any questions or concerns. This note was generated with [employer] software. It may contain incorrect words, spelling, and punctuation that were not noted in checking the note before signing.
[2018-03-22 12:22] VITALS: BP 166/73; PULSE 84; RESP 18; TEMP 35.7
[2018-03-24 10:05] VITALS: BP 138/58; PULSE 85; RESP 16; TEMP 37.1
--- NOTE | 2018-03-24 10:49 | PN.PCM_ITS ---
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 History of Wound: Ms. Cowan is a 57 year old who was referred to the wound center due to non healing surgical wound and periwound ulceration. She had a hysterectomy about 2 weeks ago which was said to be uneventful however, she had a 2 week follow up yesterday and was noted to have worsening abdominal ulcerations around the wound site. She denies any known precipitating factor. She also reports feeling well otherwise. Progress of Wound: Improving. No new complaints at this time. - Physical Exam Vital Signs Temp Pulse Resp BP 98.7 F 85 16 138/58 H 03/24/18 10:05 03/24/18 10:05 03/24/18 10:05 03/24/18 10:05 General: Alert, Oriented x3, Cooperative, No apparent distress HEENT: Atraumatic Oral: Moist Mucosa Neck: Supple Lungs: Normal air movement Abdomen: Soft, Non Tender Skin: Ulcer/ Wound Wound Measurements and Assessment WC - Nurse 1 - General Ulcer Measurement Start: 03/04/18 11:32 Freq: Status: Active Protocol: Activity Type Activity Date Activity User E-Sign Co-Sign Detail Recorded Client Recorded Date Recorded By Document 03/22/18 12:22 RB [id number] 03/22/18 12:25 RB Document 03/24/18 10:05 [id number] 03/24/18 10:14 03/22/18 03/24/18 12:22 10:05 Wound Center Nurse 1 [Ulcer Assessment] 1. lower mid abd cluster -Combined with other wound No No -Current Size (cm) - Length 1.2 -Current Size (cm) - Width 5.8 -Current Size (cm) - Depth 0.4 -Total Square Cm 6.96 -Photo Taken No No -Epithelialization Small 1-33% -Tunneling No No -Undermining/Tunneling No No -Circular Undermining No -Exudate Amt Small (1-33%) Medium (34-66%) -Exudate Type Serosanguineous Serosanguineous -Wound Margin Distinct, Distinct, Outline Outline Attached Attached -Granulation Amt Medium (34-66%) Medium (34-66%) -Granulation Quality [place] -Slough/Fibrin Yes Yes -Necrosis Amt Small (1-33%) None Present (0 %) -Necrotic Tissue Type Adherent Slough Adherent Slough -Structure Exposed N/A None/Limited to Skin Breakdown -Texture (Dianne-wound Skin Appearance) Assessed Assessed Scarring -Moisture (Dianne-wound Skin Appearance Assessed No Abnormality ) Assessed -Color (Dianne-wound Skin Appearance) Assessed -Temperature (Dianne-wound Skin No Abnormality No Abnormality Appearance) (Pt Warm) (Pt Warm) -Tenderness on Palpation (Dianne-wound No No Skin Appearance) -Ulcer Cleansing Rinsed/ Rinsed/ Irrigated with Irrigated with Saline Saline -Foul Odor after Cleansing No No -Anesthetic Used 4% Lidocaine Solution [Edema Assessment] -Lower Limb Edema Present NA WC - Nurse 2 - General Ulcer CM Notes Start: 03/04/18 11:32 Freq: Status: Active Protocol: Activity Type Activity Date Activity User E-Sign Co-Sign Detail Recorded Client Recorded Date Recorded By Document 03/24/18 10:29 MW [id number] 03/24/18 10:31 MW 03/24/18 10:29 Wound Center Nurse 2 [Procedure/Treatment] 1. lower [facility] -Time 10:29 -Correct Patient Yes -Correct Side, Site, Position Yes -Correct Procedure Yes -Procedure Performed Yes -Type of Procedure Debridement -Clinical Debridement Subcutaneous -Post Debridement Size (cm) - Length 0.8 -Post Debridement Size (cm) - Width 6.0 -Post Debridement Size (cm) - Depth 0.7 -Total Square Cm 4.80 -Wound/Ulcer Outcome Not Healed -Ulcer Cleansing Rinsed/ Irrigated with Saline -Foul Odor after Cleansing No -Bioengineered Tissue No -Bleeding Controlled with Pressure -Treatment Response Procedure Tolerated Well [See Physician Procedure note for Specifics] Pain Scale: 0-10 Numeric [Pain] -Is Patient Pain Free? Yes Musculoskeletal: No Muscle Wasting Neurological: Cranial nerves II-XII grossly intact Psych/Mental Status: Normal Affect Debridement Note Post-Debridement Measurements/Treatment WC - Nurse 2 - General Ulcer CM Notes Start: 03/04/18 11:32 Freq: Status: Active Protocol: Activity Type Activity Date Activity User E-Sign Co-Sign Detail Recorded Client Recorded Date Recorded By Document 03/04/18 11:48 MW [id number] 03/04/18 11:52 MW Document 03/11/18 12:15 MW [id number] 03/11/18 12:19 MW Document 03/18/18 11:52 MW [id number] 03/18/18 11:56 MW Document 03/24/18 10:29 MW [id number] 03/24/18 10:31 MW 03/04/18 03/11/18 03/18/18 11:48 12:15 11:52 Wound Center Nurse 2 1. [facility] cluster -Time 11:48 12:15 11:53 -Correct Patient Yes Yes Yes -Correct Side, Site, Position Yes Yes Yes -Correct Procedure Yes Yes Yes -Procedure Performed Yes Yes Yes -Type of Procedure Debridement Debridement Debridement -Clinical Debridement Subcutaneous Subcutaneous Subcutaneous -Post Debridement Size (cm) - Length 1.0 1.2 1.0 -Post Debridement Size (cm) - Width 9.5 9.0 6.0 -Post Debridement Size (cm) - Depth 1.4 1.0 0.7 -Total Square Cm 9.50 10.80 6.00 -Wound/Ulcer Outcome Not Healed Not Healed Failed Flap -Ulcer Cleansing Rinsed/ Rinsed/ Rinsed/ Irrigated with Irrigated with Irrigated with Saline Saline Saline -Foul Odor after Cleansing No No No -Bioengineered Tissue No No No -Bleeding Controlled with Pressure Pressure Pressure -Treatment Response Procedure Procedure Procedure Tolerated Well Tolerated Well Tolerated Well Pain Scale: 0-10 Numeric Is Patient Pain Free? Yes Yes Yes 03/24/18 10:29 Wound Center Nurse 2 1. lower [facility] cluster -Time 10:29 -Correct Patient Yes -Correct Side, Site, Position Yes -Correct Procedure Yes -Procedure Performed Yes -Type of Procedure Debridement -Clinical Debridement Subcutaneous -Post Debridement Size (cm) - Length 0.8 -Post Debridement Size (cm) - Width 6.0 -Post Debridement Size (cm) - Depth 0.7 -Total Square Cm 4.80 -Wound/Ulcer Outcome Not Healed -Ulcer Cleansing Rinsed/ Irrigated with Saline -Foul Odor after Cleansing No -Bioengineered Tissue No -Bleeding Controlled with Pressure -Treatment Response Procedure Tolerated Well Pain Scale: 0-10 Numeric Is Patient Pain Free? Yes Wound debrided: Abdominal wound Wound Grade/Stage: Stage III Type of Debridement: Excisional debridement Anesthesia Used: 4% Lidocaine Solution Depth: Down to and including healthy tissue, in the subcutaneous layer Percentage of wound debrided: 100 Instrument Used: 3mm curette Tissue Removed: Slough and devitalized tissue Severity: Fat Layer Exposed Amount of bleeding with debridement: Mild Bleeding Controlled with: Pressure Patient tolerated procedure well Assessment/Plan Active Problems (Last Reviewed 02/23/18 @ 10:04 by Marlyn Herndon) Surgical wound, non healing (Chronic) Intertriginous skin ulcer with fat layer exposed (Chronic) Assessment: Non healing surgical wound. Dianne wound ulceration. Intertriginous Dermatitis. Plan: Improving wound. Better granulation tissue. Debridement done as documented above, procedure was well tolerated. Continue Snap Vac. Nurse visit on Thursday. Continue Miconazole powder in the abdominal fold. Advised to not put the powder on the wound. 100% cotton underwear advised and loose fitting clothing also recommended. Increased protein intake. Follow up in 1 week with me.. All her question were answered and she was advised to call with any questions or concerns. This note was generated with [employer] software. It may contain incorrect words, spelling, and punctuation that were not noted in [facility] the note before signing.
[2018-03-29 14:10] VITALS: BP 113/62; PULSE 83; RESP 18; TEMP 37
[2018-04-01 12:07] VITALS: BP 160/80; PULSE 83; RESP 18; TEMP 36.5
--- NOTE | 2018-04-01 12:53 | PCM.WC.PN ---
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 History of Wound: Ms. Cowan is a 57 year old who was referred to the wound center due to non healing surgical wound and periwound ulceration. She had a hysterectomy about 2 weeks ago which was said to be uneventful however, she had a 2 week follow up yesterday and was noted to have worsening abdominal ulcerations around the wound site. She denies any known precipitating factor. She also reports feeling well otherwise. Progress of Wound: Improving. No new complaints at this time. - Physical Exam Vital Signs Temp Pulse Resp BP 97.7 F L 83 18 160/80 H 04/01/18 12:07 04/01/18 12:07 04/01/18 12:07 04/01/18 12:07 General: Alert, Oriented x3, Cooperative, No apparent distress HEENT: Atraumatic, Normocephalic Oral: Moist Mucosa Neck: Supple Lungs: Normal air movement Abdomen: Soft, Non Tender, Obese Extremities: No cyanosis Skin: Ulcer/ Wound Wound Measurements and Assessment WC - Nurse 1 - General Ulcer Measurement Start: 03/04/18 11:32 Freq: Status: Active Protocol: Activity Type Activity Date Activity User E-Sign Co-Sign Detail Recorded Client Recorded Date Recorded By Document 03/29/18 14:10 [id number] 03/29/18 14:11 Document 04/01/18 12:07 DL [id number] 04/01/18 12:15 DL 03/29/18 04/01/18 14:10 12:07 Wound Center Nurse 1 [Ulcer Assessment] 1. lower mid abd cluster -Combined with other wound No -Current Size (cm) - Length 1 1 -Current Size (cm) - Width 5.5 1.5 -Current Size (cm) - Depth 0.8 1.3 -Total Square Cm 5.5 1.5 -Photo Taken No Yes -Epithelialization Small 1-33% -Tunneling No -Undermining/Tunneling No -Circular Undermining No -Exudate Amt Small (1-33%) Small (1-33%) -Exudate Type Serosanguineous Serosanguineous -Wound Margin Flat & Intact Distinct, Outline Attached -Granulation Amt Large (67-100%) Large (67-100%) -Granulation Quality [place] -Slough/Fibrin Yes -Necrosis Amt Small (1-33%) None Present (0 %) -Necrotic Tissue Type Adherent Slough -Structure Exposed N/A N/A -Texture (Dianne-wound Skin Appearance) Assessed No Abnormality Scarring -Moisture (Dianne-wound Skin Appearance Assessed Dry/Scaly ) Dry/Scaly -Color (Dianne-wound Skin Appearance) Assessed No Abnormality -Temperature (Dianne-wound Skin No Abnormality No Abnormality Appearance) (Pt Warm) (Pt Warm) -Tenderness on Palpation (Dianne-wound No No Skin Appearance) -Ulcer Cleansing Wound Cleanser Wound Cleanser -Foul Odor after Cleansing No No [Edema Assessment] -Lower Limb Edema Present NA WC - Nurse 2 - General Ulcer CM Notes Start: 03/04/18 11:32 Freq: Status: Active Protocol: Activity Type Activity Date Activity User E-Sign Co-Sign Detail Recorded Client Recorded Date Recorded By Document 04/01/18 12:25 MW [id number] 04/01/18 12:27 MW 04/01/18 12:25 Wound Center Nurse 2 [Procedure/Treatment] -Time 12:26 -Correct Patient Yes -Correct Side, Site, Position Yes -Correct Procedure Yes -Procedure Performed Yes -Type of Procedure Debridement -Clinical Debridement Subcutaneous -Post Debridement Size (cm) - Length 0.8 -Post Debridement Size (cm) - Width 4.2 -Post Debridement Size (cm) - Depth 0.8 -Total Square Cm 3.36 -Wound/Ulcer Outcome Not Healed -Ulcer Cleansing Rinsed/ Irrigated with Saline -Foul Odor after Cleansing No -Bioengineered Tissue No -Bleeding Controlled with Pressure -Offloading No -Treatment Response Procedure Tolerated Well [See Physician Procedure note for Specifics] Pain Scale: 0-10 Numeric [Pain] -Is Patient Pain Free? Yes Musculoskeletal: No Muscle Wasting Neurological: Cranial nerves II-XII grossly intact Psych/Mental Status: Normal Affect Debridement Note Post-Debridement Measurements/Treatment WC - Nurse 2 - General Ulcer CM Notes Start: 03/04/18 11:32 Freq: Status: Active Protocol: Activity Type Activity Date Activity User E-Sign Co-Sign Detail Recorded Client Recorded Date Recorded By Document 03/04/18 11:48 MW [id number] 03/04/18 11:52 MW Document 03/11/18 12:15 MW [id number] 03/11/18 12:19 MW Document 03/18/18 11:52 MW [id number] 03/18/18 11:56 MW Document 03/24/18 10:29 MW [id number] 03/24/18 10:31 MW Document 04/01/18 12:25 MW [id number] 04/01/18 12:27 MW 03/04/18 03/11/18 03/18/18 11:48 12:15 11:52 Wound Center Nurse 2 1. lower [facility] abd cluster -Time 11:48 12:15 11:53 -Correct Patient Yes Yes Yes -Correct Side, Site, Position Yes Yes Yes -Correct Procedure Yes Yes Yes -Procedure Performed Yes Yes Yes -Type of Procedure Debridement Debridement Debridement -Clinical Debridement Subcutaneous Subcutaneous Subcutaneous -Post Debridement Size (cm) - Length 1.0 1.2 1.0 -Post Debridement Size (cm) - Width 9.5 9.0 6.0 -Post Debridement Size (cm) - Depth 1.4 1.0 0.7 -Total Square Cm 9.50 10.80 6.00 -Wound/Ulcer Outcome Not Healed Not Healed Failed Flap -Ulcer Cleansing Rinsed/ Rinsed/ Rinsed/ Irrigated with Irrigated with Irrigated with Saline Saline Saline -Foul Odor after Cleansing No No No -Bioengineered Tissue No No No -Bleeding Controlled with Pressure Pressure Pressure -Offloading -Treatment Response Procedure Procedure Procedure Tolerated Well Tolerated Well Tolerated Well Pain Scale: 0-10 Numeric Is Patient Pain Free? Yes Yes Yes 03/24/18 04/01/18 10:29 12:25 Wound Center Nurse 2 1. lower [facility] abd cluster -Time 10:29 12:26 -Correct Patient Yes Yes -Correct Side, Site, Position Yes Yes -Correct Procedure Yes Yes -Procedure Performed Yes Yes -Type of Procedure Debridement Debridement -Clinical Debridement Subcutaneous Subcutaneous -Post Debridement Size (cm) - Length 0.8 0.8 -Post Debridement Size (cm) - Width 6.0 4.2 -Post Debridement Size (cm) - Depth 0.7 0.8 -Total Square Cm 4.80 3.36 -Wound/Ulcer Outcome Not Healed Not Healed -Ulcer Cleansing Rinsed/ Rinsed/ Irrigated with Irrigated with Saline Saline -Foul Odor after Cleansing No No -Bioengineered Tissue No No -Bleeding Controlled with Pressure Pressure -Offloading No -Treatment Response Procedure Procedure Tolerated Well Tolerated Well Pain Scale: 0-10 Numeric Is Patient Pain Free? Yes Yes Wound debrided: Abdominal Wound Grade/Stage: Stage III Type of Debridement: Excisional debridement Anesthesia Used: 4% Lidocaine Solution Depth: Down to and including healthy tissue, in the subcutaneous layer Percentage of wound debrided: 100 Instrument Used: 3mm curette Tissue Removed: Slough and devitalized tissue Severity: Fat Layer Exposed Amount of bleeding with debridement: Mild Bleeding Controlled with: Pressure Patient tolerated procedure well Assessment/Plan Active Problems (Last Reviewed 02/23/18 @ 10:04 by Marlyn Herndon) Surgical wound, non healing (Chronic) Intertriginous skin ulcer with fat layer exposed (Chronic) Assessment: Non healing surgical wound. Dianne wound ulceration. Intertriginous Dermatitis. Plan: Slowly but steadily improving. Better granulation tissue. Debridement done as documented above, procedure was well tolerated. Continue Snap Vac. Nurse visit on Thursday and . Continue Miconazole powder in the abdominal fold. Advised to not put the powder on the wound. 100% cotton underwear advised and loose fitting clothing also recommended. Increased protein intake. Follow up in 2 weeks with me.. All her question were answered and she was advised to call with any questions or concerns. This note was generated with [employer] software. It may contain incorrect words, spelling, and punctuation that were not noted in checking the note before signing.
--- NOTE | 2018-04-01 12:57 | PN.PCM_ITS ---
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 History of Wound: Ms. Cowan is a 57 year old who was referred to the wound center due to non healing surgical wound and periwound ulceration. She had a hysterectomy about 2 weeks ago which was said to be uneventful however, she had a 2 week follow up yesterday and was noted to have worsening abdominal ulcerations around the wound site. She denies any known precipitating factor. She also reports feeling well otherwise. Progress of Wound: Improving. No new complaints at this time. - Physical Exam Vital Signs Temp Pulse Resp BP 97.7 F L 83 18 160/80 H 04/01/18 12:07 04/01/18 12:07 04/01/18 12:07 04/01/18 12:07 General: Alert, Oriented x3, Cooperative, No apparent distress HEENT: Atraumatic, Normocephalic Oral: Moist Mucosa Neck: Supple Lungs: Normal air movement Abdomen: Soft, Non Tender, Obese Extremities: No cyanosis Skin: Ulcer/ Wound Wound Measurements and Assessment WC - Nurse 1 - General Ulcer Measurement Start: 03/04/18 11:32 Freq: Status: Active Protocol: Activity Type Activity Date Activity User E-Sign Co-Sign Detail Recorded Client Recorded Date Recorded By Document 03/29/18 14:10 [id number] 03/29/18 14:11 Document 04/01/18 12:07 DL [id number] 04/01/18 12:15 DL 03/29/18 04/01/18 14:10 12:07 Wound Center Nurse 1 [Ulcer Assessment] 1. lower mid abd cluster -Combined with other wound No -Current Size (cm) - Length 1 1 -Current Size (cm) - Width 5.5 1.5 -Current Size (cm) - Depth 0.8 1.3 -Total Square Cm 5.5 1.5 -Photo Taken No Yes -Epithelialization Small 1-33% -Tunneling No -Undermining/Tunneling No -Circular Undermining No -Exudate Amt Small (1-33%) Small (1-33%) -Exudate Type Serosanguineous Serosanguineous -Wound Margin Flat & Intact Distinct, Outline Attached -Granulation Amt Large (67-100%) Large (67-100%) -Granulation Quality Red Red -Slough/Fibrin Yes -Necrosis Amt Small (1-33%) None Present (0 %) -Necrotic Tissue Type Adherent Slough -Structure Exposed N/A N/A -Texture (Dianne-wound Skin Appearance) Assessed No Abnormality Scarring -Moisture (Dianne-wound Skin Appearance Assessed Dry/Scaly ) Dry/Scaly -Color (Dianne-wound Skin Appearance) Assessed No Abnormality -Temperature (Dianne-wound Skin No Abnormality No Abnormality Appearance) (Pt Warm) (Pt Warm) -Tenderness on Palpation (Dianne-wound No No Skin Appearance) -Ulcer Cleansing Wound Cleanser Wound Cleanser -Foul Odor after Cleansing No No [Edema Assessment] -Lower Limb Edema Present NA WC - Nurse 2 - General Ulcer CM Notes Start: 03/04/18 11:32 Freq: Status: Active Protocol: Activity Type Activity Date Activity User E-Sign Co-Sign Detail Recorded Client Recorded Date Recorded By Document 04/01/18 12:25 MW [id number] 04/01/18 12:27 MW 04/01/18 12:25 Wound Center Nurse 2 [Procedure/Treatment] -Time 12:26 -Correct Patient Yes -Correct Side, Site, Position Yes -Correct Procedure Yes -Procedure Performed Yes -Type of Procedure Debridement -Clinical Debridement Subcutaneous -Post Debridement Size (cm) - Length 0.8 -Post Debridement Size (cm) - Width 4.2 -Post Debridement Size (cm) - Depth 0.8 -Total Square Cm 3.36 -Wound/Ulcer Outcome Not Healed -Ulcer Cleansing Rinsed/ Irrigated with Saline -Foul Odor after Cleansing No -Bioengineered Tissue No -Bleeding Controlled with Pressure -Offloading No -Treatment Response Procedure Tolerated Well [See Physician Procedure note for Specifics] Pain Scale: 0-10 Numeric [Pain] -Is Patient Pain Free? Yes Musculoskeletal: No Muscle Wasting Neurological: Cranial nerves II-XII grossly intact Psych/Mental Status: Normal Affect Debridement Note Post-Debridement Measurements/Treatment WC - Nurse 2 - General Ulcer CM Notes Start: 03/04/18 11:32 Freq: Status: Active Protocol: Activity Type Activity Date Activity User E-Sign Co-Sign Detail Recorded Client Recorded Date Recorded By Document 03/04/18 11:48 MW [id number] 03/04/18 11:52 MW Document 03/11/18 12:15 MW [id number] 03/11/18 12:19 MW Document 03/18/18 11:52 MW [id number] 03/18/18 11:56 MW Document 03/24/18 10:29 MW [id number] 03/24/18 10:31 MW Document 04/01/18 12:25 MW [id number] 04/01/18 12:27 MW 03/04/18 03/11/18 03/18/18 11:48 12:15 11:52 Wound Center Nurse 2 [facility] -Time 11:48 12:15 11:53 -Correct Patient Yes Yes Yes -Correct Side, Site, Position Yes Yes Yes -Correct Procedure Yes Yes Yes -Procedure Performed Yes Yes Yes -Type of Procedure Debridement Debridement Debridement -Clinical Debridement Subcutaneous Subcutaneous Subcutaneous -Post Debridement Size (cm) - Length 1.0 1.2 1.0 -Post Debridement Size (cm) - Width 9.5 9.0 6.0 -Post Debridement Size (cm) - Depth 1.4 1.0 0.7 -Total Square Cm 9.50 10.80 6.00 -Wound/Ulcer Outcome Not Healed Not Healed Failed Flap -Ulcer Cleansing Rinsed/ Rinsed/ Rinsed/ Irrigated with Irrigated with Irrigated with Saline Saline Saline -Foul Odor after Cleansing No No No -Bioengineered Tissue No No No -Bleeding Controlled with Pressure Pressure Pressure -Offloading -Treatment Response Procedure Procedure Procedure Tolerated Well Tolerated Well Tolerated Well Pain Scale: 0-10 Numeric Is Patient Pain Free? Yes Yes Yes 03/24/18 04/01/18 10:29 12:25 Wound Center Nurse 2 [facility]. [facility] -Time 10:29 12:26 -Correct Patient Yes Yes -Correct Side, Site, Position Yes Yes -Correct Procedure Yes Yes -Procedure Performed Yes Yes -Type of Procedure Debridement Debridement -Clinical Debridement Subcutaneous Subcutaneous -Post Debridement Size (cm) - Length 0.8 0.8 -Post Debridement Size (cm) - Width 6.0 4.2 -Post Debridement Size (cm) - Depth 0.7 0.8 -Total Square Cm 4.80 3.36 -Wound/Ulcer Outcome Not Healed Not Healed -Ulcer Cleansing Rinsed/ Rinsed/ Irrigated with Irrigated with Saline Saline -Foul Odor after Cleansing No No -Bioengineered Tissue No No -Bleeding Controlled with Pressure Pressure -Offloading No -Treatment Response Procedure Procedure Tolerated Well Tolerated Well Pain Scale: 0-10 Numeric Is Patient Pain Free? Yes Yes Wound debrided: Abdominal Wound Grade/Stage: Stage III Type of Debridement: Excisional debridement Anesthesia Used: 4% Lidocaine Solution Depth: Down to and including healthy tissue, in the subcutaneous layer Percentage of wound debrided: 100 Instrument Used: 3mm curette Tissue Removed: Slough and devitalized tissue Severity: Fat Layer Exposed Amount of bleeding with debridement: Mild Bleeding Controlled with: Pressure Patient tolerated procedure well Assessment/Plan Active Problems (Last Reviewed 02/23/18 @ 10:04 by Marlyn Herndon) Surgical wound, non healing (Chronic) Intertriginous skin ulcer with fat layer exposed (Chronic) Assessment: Non healing surgical wound. Dianne wound ulceration. Intertriginous Dermatitis. Plan: Slowly but steadily improving. Better granulation tissue. Debridement done as documented above, procedure was well tolerated. Continue Snap Vac. Nurse visit on Thursday and . Continue Miconazole powder in the abdominal fold. Advised to not put the powder on the wound. 100% cotton underwear advised and loose fitting clothing also recommended. Increased protein intake. Follow up in 2 weeks with me.. All her question were answered and she was advised to call with any questions or concerns. This note was generated with [employer] software. It may contain incorrect words, spelling, and punctuation that were not noted in checking the note before signing.
== END 2018-04-02 23:59 ==
LOC: WC 11:30
PROVIDERS: Family Provider Family Medicine; PCP Family Medicine; Referring Provider Internal Medicine; Visit Provider Internal Medicine
DX: T81.89XA Other complications of procedures, not elsewhere classified, initial encounter (principal); L30.4 Erythema intertrigo
CPT/HCPCS: 11042; 97607; 99211; G0463

== ENCOUNTER 2018-04-29 09:00 | Outpatient (RCR) | payer OTHER, SELFPAY ==
[2018-04-03 01:27] VITALS: BP 160/80; PULSE 83; RESP 18; TEMP 36.5
[2018-04-05 15:32] VITALS: BP 153/73; PULSE 90; RESP 18; TEMP 36.1
[2018-04-08 15:01] VITALS: BP 158/93; PULSE 92; RESP 16; TEMP 36.8
[2018-04-12 08:51] VITALS: BP 158/81; PULSE 89; RESP 16; TEMP 36.3
[2018-04-15 09:59] VITALS: BP 152/84; PULSE 84; RESP 16; TEMP 36.8
--- NOTE | 2018-04-15 11:01 | PCM.WC.PN ---
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 History of Wound: Ms. Cowan is a 57 year old who was referred to the wound center due to non healing surgical wound and periwound ulceration. She had a hysterectomy about 2 weeks ago which was said to be uneventful however, she had a 2 week follow up yesterday and was noted to have worsening abdominal ulcerations around the wound site. She denies any known precipitating factor. She also reports feeling well otherwise. Progress of Wound: Improving. No new complaints at this time. - Physical Exam Vital Signs Temp Pulse Resp BP 98.2 F 84 16 152/84 H 04/15/18 09:59 04/15/18 09:59 04/15/18 09:59 04/15/18 09:59 General: Alert, Oriented x3, Cooperative, No apparent distress HEENT: Atraumatic Oral: Moist Mucosa Neck: Supple Lungs: Normal air movement Abdomen: Soft, Non Tender, Obese Extremities: No cyanosis Skin: Ulcer/ Wound Wound Measurements and Assessment WC - Nurse 1 - General Ulcer Measurement Start: 04/05/18 15:32 Freq: Status: Active Protocol: Activity Type Activity Date Activity User E-Sign Co-Sign Detail Recorded Client Recorded Date Recorded By Document 04/15/18 09:59 [id number] 04/15/18 10:06 04/15/18 09:59 Wound Center Nurse 1 [Ulcer Assessment] 1. lower mid abd cluster -Combined with other wound No -Current Size (cm) - Length 0.6 -Current Size (cm) - Width 1.6 -Current Size (cm) - Depth 0.3 -Total Square Cm 0.96 -Photo Taken No -Epithelialization Small 1-33% -Tunneling No -Undermining/Tunneling No -Circular Undermining No -Exudate Amt Small (1-33%) -Exudate Type Serosanguineous -Wound Margin Distinct, Outline Attached -Granulation Amt Medium (34-66%) -Granulation Quality Pale [place] -Slough/Fibrin Yes -Necrosis Amt Small (1-33%) -Necrotic Tissue Type Adherent Slough -Structure Exposed None/Limited to Skin Breakdown -Texture (Dianne-wound Skin Appearance) Scarring -Moisture (Dianne-wound Skin Appearance No Abnormality ) Assessed -Color (Dianne-wound Skin Appearance) No Abnormality Assessed -Temperature (Dianne-wound Skin No Abnormality Appearance) (Pt Warm) -Tenderness on Palpation (Dianne-wound No Skin Appearance) -Ulcer Cleansing Rinsed/ Irrigated with Saline -Foul Odor after Cleansing No -Anesthetic Used 4% Lidocaine Solution 5% Lidocaine Gel WC - Nurse 2 - General Ulcer CM Notes Start: 04/05/18 15:32 Freq: Status: Active Protocol: Activity Type Activity Date Activity User E-Sign Co-Sign Detail Recorded Client Recorded Date Recorded By Document 04/15/18 10:24 MW [id number] 04/15/18 10:26 MW 04/15/18 10:24 Wound Center Nurse 2 [Procedure/Treatment] -Time 10:25 -Correct Patient Yes -Correct Side, Site, Position Yes -Correct Procedure Yes -Procedure Performed Yes -Type of Procedure Debridement -Clinical Debridement Subcutaneous -Post Debridement Size (cm) - Length 0.5 -Post Debridement Size (cm) - Width 2.0 -Post Debridement Size (cm) - Depth 0.4 -Total Square Cm 1.00 -Wound/Ulcer Outcome Not Healed -Ulcer Cleansing Rinsed/ Irrigated with Saline -Foul Odor after Cleansing No -Bioengineered Tissue No -Bleeding Controlled with Pressure -Offloading No -Treatment Response Procedure Tolerated Well [See Physician Procedure note for Specifics] Pain Scale: 0-10 Numeric [Pain] -Is Patient Pain Free? Yes Musculoskeletal: No Muscle Wasting Neurological: Cranial nerves II-XII grossly intact Psych/Mental Status: Normal Affect Debridement Note Post-Debridement Measurements/Treatment WC - Nurse 2 - General Ulcer CM Notes Start: 04/05/18 15:32 Freq: Status: Active Protocol: Activity Type Activity Date Activity User E-Sign Co-Sign Detail Recorded Client Recorded Date Recorded By Document 04/15/18 10:24 MW [id number] 04/15/18 10:26 MW 04/15/18 10:24 Wound Center Nurse 2 1. lower mid abd cluster -Time 10:25 -Correct Patient Yes -Correct Side, Site, Position Yes -Correct Procedure Yes -Procedure Performed Yes -Type of Procedure Debridement -Clinical Debridement Subcutaneous -Post Debridement Size (cm) - Length 0.5 -Post Debridement Size (cm) - Width 2.0 -Post Debridement Size (cm) - Depth 0.4 -Total Square Cm 1.00 -Wound/Ulcer Outcome Not Healed -Ulcer Cleansing Rinsed/ Irrigated with Saline -Foul Odor after Cleansing No -Bioengineered Tissue No -Bleeding Controlled with Pressure -Offloading No -Treatment Response Procedure Tolerated Well Pain Scale: 0-10 Numeric Is Patient Pain Free? Yes Wound debrided: Abdominal Wound Grade/Stage: Stage III Type of Debridement: Excisional debridement Anesthesia Used: 4% Lidocaine Solution Depth: Down to and including healthy tissue, in the subcutaneous layer Percentage of wound debrided: 100 Instrument Used: 3mm curette Tissue Removed: Slough and devitalized tissue Severity: Fat Layer Exposed Amount of bleeding with debridement: Mild Bleeding Controlled with: Pressure Patient tolerated procedure well Assessment/Plan Active Problems (Last Reviewed 02/23/18 @ 10:04 by Marlyn Herndon) Surgical wound, non healing (Chronic) Intertriginous skin ulcer with fat layer exposed (Chronic) Assessment: Non healing surgical wound. Dianne wound ulceration. Intertriginous Dermatitis. Plan: Improving. Debridement done as documented above, procedure was well tolerated. Continue Snap Vac. Nurse visit on Thursday. Continue Miconazole powder in the abdominal fold. Advised to not put the powder on the wound. 100% cotton underwear advised and loose fitting clothing also recommended. Increased protein intake. Follow up in 1 week. All her question were answered and she was advised to call with any questions or concerns. This note was generated with [employer] software. It may contain incorrect words, spelling, and punctuation that were not noted in checking the note before signing.
--- NOTE | 2018-04-15 11:04 | PN.PCM_ITS ---
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 History of Wound: Ms. Cowan is a 57 year old who was referred to the wound center due to non healing surgical wound and periwound ulceration. She had a hysterectomy about 2 weeks ago which was said to be uneventful however, she had a 2 week follow up yesterday and was noted to have worsening abdominal ulcerations around the wound site. She denies any known precipitating factor. She also reports feeling well otherwise. Progress of Wound: Improving. No new complaints at this time. - Physical Exam Vital Signs Temp Pulse Resp BP 98.2 F 84 16 152/84 H 04/15/18 09:59 04/15/18 09:59 04/15/18 09:59 04/15/18 09:59 General: Alert, Oriented x3, Cooperative, No apparent distress HEENT: Atraumatic Oral: Moist Mucosa Neck: Supple Lungs: Normal air movement Abdomen: Soft, Non Tender, Obese Extremities: No cyanosis Skin: Ulcer/ Wound Wound Measurements and Assessment WC - Nurse 1 - General Ulcer Measurement Start: 04/05/18 15:32 Freq: Status: Active Protocol: Activity Type Activity Date Activity User E-Sign Co-Sign Detail Recorded Client Recorded Date Recorded By Document 04/15/18 09:59 [id number] 04/15/18 10:06 04/15/18 09:59 Wound Center Nurse 1 [Ulcer Assessment] 1. lower mid abd cluster -Combined with other wound No -Current Size (cm) - Length 0.6 -Current Size (cm) - Width 1.6 -Current Size (cm) - Depth 0.3 -Total Square Cm 0.96 -Photo Taken No -Epithelialization Small 1-33% -Tunneling No -Undermining/Tunneling No -Circular Undermining No -Exudate Amt Small (1-33%) -Exudate Type Serosanguineous -Wound Margin Distinct, Outline Attached -Granulation Amt Medium (34-66%) -Granulation Quality Pale [place] -Slough/Fibrin Yes -Necrosis Amt Small (1-33%) -Necrotic Tissue Type Adherent Slough -Structure Exposed None/Limited to Skin Breakdown -Texture (Dianne-wound Skin Appearance) Scarring -Moisture (Dianne-wound Skin Appearance No Abnormality ) Assessed -Color (Dianne-wound Skin Appearance) No Abnormality Assessed -Temperature (Dianne-wound Skin No Abnormality Appearance) (Pt Warm) -Tenderness on Palpation (Dianne-wound No Skin Appearance) -Ulcer Cleansing Rinsed/ Irrigated with Saline -Foul Odor after Cleansing No -Anesthetic Used 4% Lidocaine Solution 5% Lidocaine Gel WC - Nurse 2 - General Ulcer CM Notes Start: 04/05/18 15:32 Freq: Status: Active Protocol: Activity Type Activity Date Activity User E-Sign Co-Sign Detail Recorded Client Recorded Date Recorded By Document 04/15/18 10:24 MW [id number] 04/15/18 10:26 MW 04/15/18 10:24 Wound Center Nurse 2 [Procedure/Treatment] -Time 10:25 -Correct Patient Yes -Correct Side, Site, Position Yes -Correct Procedure Yes -Procedure Performed Yes -Type of Procedure Debridement -Clinical Debridement Subcutaneous -Post Debridement Size (cm) - Length 0.5 -Post Debridement Size (cm) - Width 2.0 -Post Debridement Size (cm) - Depth 0.4 -Total Square Cm 1.00 -Wound/Ulcer Outcome Not Healed -Ulcer Cleansing Rinsed/ Irrigated with Saline -Foul Odor after Cleansing No -Bioengineered Tissue No -Bleeding Controlled with Pressure -Offloading No -Treatment Response Procedure Tolerated Well [See Physician Procedure note for Specifics] Pain Scale: 0-10 Numeric [Pain] -Is Patient Pain Free? Yes Musculoskeletal: No Muscle Wasting Neurological: Cranial nerves II-XII grossly intact Psych/Mental Status: Normal Affect Debridement Note Post-Debridement Measurements/Treatment WC - Nurse 2 - General Ulcer CM Notes Start: 04/05/18 15:32 Freq: Status: Active Protocol: Activity Type Activity Date Activity User E-Sign Co-Sign Detail Recorded Client Recorded Date Recorded By Document 04/15/18 10:24 MW [id number] 04/15/18 10:26 MW 04/15/18 10:24 Wound Center Nurse 2 1. lower mid abd cluster -Time 10:25 -Correct Patient Yes -Correct Side, Site, Position Yes -Correct Procedure Yes -Procedure Performed Yes -Type of Procedure Debridement -Clinical Debridement Subcutaneous -Post Debridement Size (cm) - Length 0.5 -Post Debridement Size (cm) - Width 2.0 -Post Debridement Size (cm) - Depth 0.4 -Total Square Cm 1.00 -Wound/Ulcer Outcome Not Healed -Ulcer Cleansing Rinsed/ Irrigated with Saline -Foul Odor after Cleansing No -Bioengineered Tissue No -Bleeding Controlled with Pressure -Offloading No -Treatment Response Procedure Tolerated Well Pain Scale: 0-10 Numeric Is Patient Pain Free? Yes Wound debrided: Abdominal Wound Grade/Stage: Stage III Type of Debridement: Excisional debridement Anesthesia Used: 4% Lidocaine Solution Depth: Down to and including healthy tissue, in the subcutaneous layer Percentage of wound debrided: 100 Instrument Used: 3mm curette Tissue Removed: Slough and devitalized tissue Severity: Fat Layer Exposed Amount of bleeding with debridement: Mild Bleeding Controlled with: Pressure Patient tolerated procedure well Assessment/Plan Active Problems (Last Reviewed 02/23/18 @ 10:04 by Marlyn Herndon) Surgical wound, non healing (Chronic) Intertriginous skin ulcer with fat layer exposed (Chronic) Assessment: Non healing surgical wound. Dianne wound ulceration. Intertriginous Dermatitis. Plan: Improving. Debridement done as documented above, procedure was well tolerated. Continue Snap Vac. Nurse visit on Thursday. Continue Miconazole powder in the abdominal fold. Advised to not put the powder on the wound. 100% cotton underwear advised and loose fitting clothing also recommended. Increased protein intake. Follow up in 1 week. All her question were answered and she was advised to call with any questions or concerns. This note was generated with [employer] software. It may contain incorrect words, spelling, and punctuation that were not noted in checking the note before signing.
[2018-04-19 11:06] VITALS: BP 151/66; PULSE 73; RESP 18; TEMP 37.3
[2018-04-22 08:16] VITALS: BP 165/89; PULSE 88; RESP 18; TEMP 37.2
--- NOTE | 2018-04-22 08:42 | PCM.WC.PN ---
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 History of Wound: Ms. Cowan is a 57 year old who was referred to the wound center due to non healing surgical wound and periwound ulceration. She had a hysterectomy about 2 weeks ago which was said to be uneventful however, she had a 2 week follow up yesterday and was noted to have worsening abdominal ulcerations around the wound site. She denies any known precipitating factor. She also reports feeling well otherwise. Progress of Wound: Improving. No new complaints at this time. - Physical Exam Vital Signs Temp Pulse Resp BP 98.9 F 88 18 165/89 H 04/22/18 08:16 04/22/18 08:16 04/22/18 08:16 04/22/18 08:16 General: Alert, Oriented x3, Cooperative, No apparent distress HEENT: Atraumatic, Normocephalic Oral: Moist Mucosa Neck: Supple Lungs: Normal air movement Abdomen: Soft, Non Tender Extremities: No cyanosis Skin: Ulcer/ Wound Wound Measurements and Assessment WC - Nurse 1 - General Ulcer Measurement Start: 04/05/18 15:32 Freq: Status: Active Protocol: Activity Type Activity Date Activity User E-Sign Co-Sign Detail Recorded Client Recorded Date Recorded By Document 04/19/18 11:06 [id number] 04/19/18 11:19 JS Document 04/22/18 08:16 [id number] 04/22/18 08:24 DL 04/19/18 04/22/18 11:06 08:16 Wound Center Nurse 1 [Ulcer Assessment] 1. lower mid abd cluster -Combined with other wound No -Current Size (cm) - Length 0.3 0.5 -Current Size (cm) - Width 1.3 0.7 -Current Size (cm) - Depth 0.4 0.5 -Total Square Cm 0.39 0.35 -Photo Taken No No -Tunneling No -Undermining/Tunneling No -Circular Undermining No -Classification - Thickness Full Thickness without Exposed Support Structure -Exudate Amt None Present (0 Small (1-33%) %) -Exudate Type Serosanguineous -Wound Margin Distinct, Distinct, Outline Outline Attached Attached -Granulation Amt Small (1-33%) Large (67-100%) -Granulation Quality Pale [place] Red -Slough/Fibrin Yes -Necrosis Amt None Present (0 None Present (0 %) %) -Necrotic Tissue Type Adherent Slough -Structure Exposed None/Limited to N/A Skin Breakdown -Texture (Dianne-wound Skin Appearance) No Abnormality Scarring -Moisture (Dianne-wound Skin Appearance No Abnormality No Abnormality ) -Color (Dianne-wound Skin Appearance) No Abnormality No Abnormality -Temperature (Dianne-wound Skin No Abnormality No Abnormality Appearance) (Pt Warm) (Pt Warm) -Tenderness on Palpation (Dianne-wound No No Skin Appearance) -Ulcer Cleansing Rinsed/ Wound Cleanser Irrigated with Saline -Foul Odor after Cleansing No No -Anesthetic Used 5% Lidocaine Gel WC - Nurse 2 - General Ulcer CM Notes Start: 04/05/18 15:32 Freq: Status: Active Protocol: Activity Type Activity Date Activity User E-Sign Co-Sign Detail Recorded Client Recorded Date Recorded By Document 04/22/18 08:36 MW [id number] 04/22/18 08:39 MW 04/22/18 08:36 Wound Center Nurse 2 [Procedure/Treatment] -Time 08:36 -Correct Patient Yes -Correct Side, Site, Position Yes -Correct Procedure Yes -Procedure Performed Yes -Type of Procedure Debridement -Clinical Debridement Subcutaneous -Post Debridement Size (cm) - Length 0.5 -Post Debridement Size (cm) - Width 0.9 -Post Debridement Size (cm) - Depth 0.3 -Total Square Cm 0.45 -Wound/Ulcer Outcome Not Healed -Ulcer Cleansing Rinsed/ Irrigated with Saline -Foul Odor after Cleansing No -Bioengineered Tissue No -Bleeding Controlled with Pressure -Offloading No -Treatment Response Procedure Tolerated Well [See Physician Procedure note for Specifics] Pain Scale: 0-10 Numeric [Pain] -Is Patient Pain Free? Yes Musculoskeletal: No Muscle Wasting Neurological: Cranial nerves II-XII grossly intact Psych/Mental Status: Normal Affect Debridement Note Post-Debridement Measurements/Treatment WC - Nurse 2 - General Ulcer CM Notes Start: 04/05/18 15:32 Freq: Status: Active Protocol: Activity Type Activity Date Activity User E-Sign Co-Sign Detail Recorded Client Recorded Date Recorded By Document 04/15/18 10:24 MW [id number] 04/15/18 10:26 MW Document 04/22/18 08:36 MW [id number] 04/22/18 08:39 MW 04/15/18 04/22/18 10:24 08:36 Wound Center Nurse 2 1. lower mid abd cluster -Time 10:25 08:36 -Correct Patient Yes Yes -Correct Side, Site, Position Yes Yes -Correct Procedure Yes Yes -Procedure Performed Yes Yes -Type of Procedure Debridement Debridement -Clinical Debridement Subcutaneous Subcutaneous -Post Debridement Size (cm) - Length 0.5 0.5 -Post Debridement Size (cm) - Width 2.0 0.9 -Post Debridement Size (cm) - Depth 0.4 0.3 -Total Square Cm 1.00 0.45 -Wound/Ulcer Outcome Not Healed Not Healed -Ulcer Cleansing Rinsed/ Rinsed/ Irrigated with Irrigated with Saline Saline -Foul Odor after Cleansing No No -Bioengineered Tissue No No -Bleeding Controlled with Pressure Pressure -Offloading No No -Treatment Response Procedure Procedure Tolerated Well Tolerated Well Pain Scale: 0-10 Numeric Is Patient Pain Free? Yes Yes Wound debrided: Abdominal wound Wound Grade/Stage: Stage II Type of Debridement: Excisional debridement Anesthesia Used: 4% Lidocaine Solution Depth: Down to and including healthy tissue, in the subcutaneous layer Percentage of wound debrided: 100 Instrument Used: 3mm curette Tissue Removed: Slough and dveitalized tisue Severity: Fat Layer Exposed Amount of bleeding with debridement: Mild Bleeding Controlled with: Pressure Patient tolerated procedure well Assessment/Plan Active Problems (Last Reviewed 02/23/18 @ 10:04 by Marlyn Herndon) Surgical wound, non healing (Chronic) Intertriginous skin ulcer with fat layer exposed (Chronic) Assessment: Non healing surgical wound. Dianne wound ulceration. Intertriginous Dermatitis. Plan: Improving. Debridement done as documented above, procedure was well tolerated. Ok to DC wound Vac. Switch to Pomogran. Change daily. Continue Miconazole powder in the abdominal fold. Advised to not put the powder on the wound. 100% cotton underwear advised and loose fitting clothing also recommended. Increased protein intake. Follow up in 1 week. All her question were answered and she was advised to call with any questions or concerns. This note was generated with [employer] software. It may contain incorrect words, spelling, and punctuation that were not noted in checking the note before signing.
--- NOTE | 2018-04-22 08:45 | PN.PCM_ITS ---
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 History of Wound: Ms. Cowan is a 57 year old who was referred to the wound center due to non healing surgical wound and periwound ulceration. She had a hysterectomy about 2 weeks ago which was said to be uneventful however, she had a 2 week follow up yesterday and was noted to have worsening abdominal ulcerations around the wound site. She denies any known precipitating factor. She also reports feeling well otherwise. Progress of Wound: Improving. No new complaints at this time. - Physical Exam Vital Signs Temp Pulse Resp BP 98.9 F 88 18 165/89 H 04/22/18 08:16 04/22/18 08:16 04/22/18 08:16 04/22/18 08:16 General: Alert, Oriented x3, Cooperative, No apparent distress HEENT: Atraumatic, Normocephalic Oral: Moist Mucosa Neck: Supple Lungs: Normal air movement Abdomen: Soft, Non Tender Extremities: No cyanosis Skin: Ulcer/ Wound Wound Measurements and Assessment WC - Nurse 1 - General Ulcer Measurement Start: 04/05/18 15:32 Freq: Status: Active Protocol: Activity Type Activity Date Activity User E-Sign Co-Sign Detail Recorded Client Recorded Date Recorded By Document 04/19/18 11:06 [id number] 04/19/18 11:19 JS Document 04/22/18 08:16 [id number] 04/22/18 08:24 DL 04/19/18 04/22/18 11:06 08:16 Wound Center Nurse 1 [Ulcer Assessment] 1. lower mid abd cluster -Combined with other wound No -Current Size (cm) - Length 0.3 0.5 -Current Size (cm) - Width 1.3 0.7 -Current Size (cm) - Depth 0.4 0.5 -Total Square Cm 0.39 0.35 -Photo Taken No No -Tunneling No -Undermining/Tunneling No -Circular Undermining No -Classification - Thickness Full Thickness without Exposed Support Structure -Exudate Amt None Present (0 Small (1-33%) %) -Exudate Type Serosanguineous -Wound Margin Distinct, Distinct, Outline Outline Attached Attached -Granulation Amt Small (1-33%) Large (67-100%) -Granulation Quality Pale [place] Red -Slough/Fibrin Yes -Necrosis Amt None Present (0 None Present (0 %) %) -Necrotic Tissue Type Adherent Slough -Structure Exposed None/Limited to N/A Skin Breakdown -Texture (Dianne-wound Skin Appearance) No Abnormality Scarring -Moisture (Dianne-wound Skin Appearance No Abnormality No Abnormality ) -Color (Dianne-wound Skin Appearance) No Abnormality No Abnormality -Temperature (Dianne-wound Skin No Abnormality No Abnormality Appearance) (Pt Warm) (Pt Warm) -Tenderness on Palpation (Dianne-wound No No Skin Appearance) -Ulcer Cleansing Rinsed/ Wound Cleanser Irrigated with Saline -Foul Odor after Cleansing No No -Anesthetic Used 5% Lidocaine Gel WC - Nurse 2 - General Ulcer CM Notes Start: 04/05/18 15:32 Freq: Status: Active Protocol: Activity Type Activity Date Activity User E-Sign Co-Sign Detail Recorded Client Recorded Date Recorded By Document 04/22/18 08:36 MW [id number] 04/22/18 08:39 MW 04/22/18 08:36 Wound Center Nurse 2 [Procedure/Treatment] -Time 08:36 -Correct Patient Yes -Correct Side, Site, Position Yes -Correct Procedure Yes -Procedure Performed Yes -Type of Procedure Debridement -Clinical Debridement Subcutaneous -Post Debridement Size (cm) - Length 0.5 -Post Debridement Size (cm) - Width 0.9 -Post Debridement Size (cm) - Depth 0.3 -Total Square Cm 0.45 -Wound/Ulcer Outcome Not Healed -Ulcer Cleansing Rinsed/ Irrigated with Saline -Foul Odor after Cleansing No -Bioengineered Tissue No -Bleeding Controlled with Pressure -Offloading No -Treatment Response Procedure Tolerated Well [See Physician Procedure note for Specifics] Pain Scale: 0-10 Numeric [Pain] -Is Patient Pain Free? Yes Musculoskeletal: No Muscle Wasting Neurological: Cranial nerves II-XII grossly intact Psych/Mental Status: Normal Affect Debridement Note Post-Debridement Measurements/Treatment WC - Nurse 2 - General Ulcer CM Notes Start: 04/05/18 15:32 Freq: Status: Active Protocol: Activity Type Activity Date Activity User E-Sign Co-Sign Detail Recorded Client Recorded Date Recorded By Document 04/15/18 10:24 MW [id number] 04/15/18 10:26 MW Document 04/22/18 08:36 MW [id number] 04/22/18 08:39 MW 04/15/18 04/22/18 10:24 08:36 Wound Center Nurse 2 1. lower mid abd cluster -Time 10:25 08:36 -Correct Patient Yes Yes -Correct Side, Site, Position Yes Yes -Correct Procedure Yes Yes -Procedure Performed Yes Yes -Type of Procedure Debridement Debridement -Clinical Debridement Subcutaneous Subcutaneous -Post Debridement Size (cm) - Length 0.5 0.5 -Post Debridement Size (cm) - Width 2.0 0.9 -Post Debridement Size (cm) - Depth 0.4 0.3 -Total Square Cm 1.00 0.45 -Wound/Ulcer Outcome Not Healed Not Healed -Ulcer Cleansing Rinsed/ Rinsed/ Irrigated with Irrigated with Saline Saline -Foul Odor after Cleansing No No -Bioengineered Tissue No No -Bleeding Controlled with Pressure Pressure -Offloading No No -Treatment Response Procedure Procedure Tolerated Well Tolerated Well Pain Scale: 0-10 Numeric Is Patient Pain Free? Yes Yes Wound debrided: Abdominal wound Wound Grade/Stage: Stage II Type of Debridement: Excisional debridement Anesthesia Used: 4% Lidocaine Solution Depth: Down to and including healthy tissue, in the subcutaneous layer Percentage of wound debrided: 100 Instrument Used: 3mm curette Tissue Removed: Slough and dveitalized tisue Severity: Fat Layer Exposed Amount of bleeding with debridement: Mild Bleeding Controlled with: Pressure Patient tolerated procedure well Assessment/Plan Active Problems (Last Reviewed 02/23/18 @ 10:04 by Marlyn Herndon) Surgical wound, non healing (Chronic) Intertriginous skin ulcer with fat layer exposed (Chronic) Assessment: Non healing surgical wound. Dianne wound ulceration. Intertriginous Dermatitis. Plan: Improving. Debridement done as documented above, procedure was well tolerated. Ok to DC wound Vac. Switch to Pomogran. Change daily. Continue Miconazole powder in the abdominal fold. Advised to not put the powder on the wound. 100% cotton underwear advised and loose fitting clothing also recommended. Increased protein intake. Follow up in 1 week. All her question were answered and she was advised to call with any questions or concerns. This note was generated with [employer] software. It may contain incorrect words, spelling, and punctuation that were not noted in checking the note before signing.
[2018-04-29 09:00] VITALS: BP 152/78; PULSE 94; RESP 18; TEMP 36.4
--- NOTE | 2018-04-29 09:37 | PCM.WC.PN ---
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 History of Wound: Ms. Cowan is a 57 year old who was referred to the wound center due to non healing surgical wound and periwound ulceration. She had a hysterectomy about 2 weeks ago which was said to be uneventful however, she had a 2 week follow up yesterday and was noted to have worsening abdominal ulcerations around the wound site. She denies any known precipitating factor. She also reports feeling well otherwise. Progress of Wound: Improving. No new complaints at this time. - Physical Exam Vital Signs Temp Pulse Resp BP 97.5 F L 94 18 152/78 H 04/29/18 09:00 04/29/18 09:00 04/29/18 09:00 04/29/18 09:00 General: Alert, Oriented x3, Cooperative, No apparent distress HEENT: Atraumatic, Normocephalic Oral: Moist Mucosa Neck: Supple Lungs: Normal air movement Abdomen: Soft, Non Tender, Obese Skin: Ulcer/ Wound Wound Measurements and Assessment WC - Nurse 1 - General Ulcer Measurement Start: 04/05/18 15:32 Freq: Status: Active Protocol: Activity Type Activity Date Activity User E-Sign Co-Sign Detail Recorded Client Recorded Date Recorded By Document 04/29/18 09:00 [id number] 04/29/18 09:08 RB 04/29/18 09:00 Wound Center Nurse 1 [Ulcer Assessment] 1. lower mid abd cluster -Combined with other wound No -Current Size (cm) - Length 0.6 -Current Size (cm) - Width 0.3 -Current Size (cm) - Depth 0.3 -Total Square Cm 0.18 -Photo Taken No -Tunneling No -Undermining/Tunneling No -Circular Undermining No -Exudate Amt Small (1-33%) -Exudate Type Serosanguineous -Wound Margin Distinct, Outline Attached -Granulation Amt Large (67-100%) -Granulation Quality [place] -Slough/Fibrin Yes -Necrosis Amt Small (1-33%) -Necrotic Tissue Type Adherent Slough -Structure Exposed N/A -Texture (Dianne-wound Skin Appearance) Assessed -Moisture (Dianne-wound Skin Appearance Assessed ) -Color (Dianne-wound Skin Appearance) Assessed -Temperature (Dianne-wound Skin No Abnormality Appearance) (Pt Warm) -Tenderness on Palpation (Dianne-wound No Skin Appearance) -Ulcer Cleansing Rinsed/ Irrigated with Saline -Foul Odor after Cleansing No -Anesthetic Used 4% Lidocaine Solution - Nurse 2 - General Ulcer CM Notes Start: 04/05/18 15:32 Freq: Status: Active Protocol: Activity Type Activity Date Activity User E-Sign Co-Sign Detail Recorded Client Recorded Date Recorded By Document 04/29/18 09:19 MW [id number] 04/29/18 09:20 MW 04/29/18 09:19 Wound Center Nurse 2 [Procedure/Treatment] -Time 09:19 -Correct Patient Yes -Correct Side, Site, Position Yes -Correct Procedure Yes -Procedure Performed Yes -Type of Procedure Debridement -Clinical Debridement Subcutaneous -Post Debridement Size (cm) - Length 0.3 -Post Debridement Size (cm) - Width 0.8 -Post Debridement Size (cm) - Depth 0.2 -Total Square Cm 0.24 -Wound/Ulcer Outcome Not Healed -Ulcer Cleansing Rinsed/ Irrigated with Saline -Foul Odor after Cleansing No -Bioengineered Tissue No -Bleeding Controlled with Pressure -Offloading No -Treatment Response Procedure Tolerated Well [See Physician Procedure note for Specifics] Pain Scale: 0-10 Numeric [Pain] -Is Patient Pain Free? No Musculoskeletal: No Muscle Wasting Neurological: Cranial nerves II-XII grossly intact Psych/Mental Status: Normal Affect Debridement Note Post-Debridement Measurements/Treatment - Nurse 2 - General Ulcer CM Notes Start: 04/05/18 15:32 Freq: Status: Active Protocol: Activity Type Activity Date Activity User E-Sign Co-Sign Detail Recorded Client Recorded Date Recorded By Document 04/15/18 10:24 MW [id number] 04/15/18 10:26 MW Document 04/22/18 08:36 MW [id number] 04/22/18 08:39 MW Document 04/29/18 09:19 MW [id number] 04/29/18 09:20 MW 04/15/18 04/22/18 04/29/18 10:24 08:36 09:19 Wound Center Nurse 2 1. lower mid abd cluster -Time 10:25 08:36 09:19 -Correct Patient Yes Yes Yes -Correct Side, Site, Position Yes Yes Yes -Correct Procedure Yes Yes Yes -Procedure Performed Yes Yes Yes -Type of Procedure Debridement Debridement Debridement -Clinical Debridement Subcutaneous Subcutaneous Subcutaneous -Post Debridement Size (cm) - Length 0.5 0.5 0.3 -Post Debridement Size (cm) - Width 2.0 0.9 0.8 -Post Debridement Size (cm) - Depth 0.4 0.3 0.2 -Total Square Cm 1.00 0.45 0.24 -Wound/Ulcer Outcome Not Healed Not Healed Not Healed -Ulcer Cleansing Rinsed/ Rinsed/ Rinsed/ Irrigated with Irrigated with Irrigated with Saline Saline Saline -Foul Odor after Cleansing No No No -Bioengineered Tissue No No No -Bleeding Controlled with Pressure Pressure Pressure -Offloading No No No -Treatment Response Procedure Procedure Procedure Tolerated Well Tolerated Well Tolerated Well Pain Scale: 0-10 Numeric Is Patient Pain Free? Yes Yes No Wound debrided: Abdominal Wound Grade/Stage: Stage II Type of Debridement: Excisional debridement Anesthesia Used: 4% Lidocaine Solution Depth: Down to and including healthy tissue, in the subcutaneous layer Percentage of wound debrided: 100 Instrument Used: 3mm curette Tissue Removed: Slough and devitalized tissue Severity: Fat Layer Exposed Amount of bleeding with debridement: Mild Bleeding Controlled with: Pressure Patient tolerated procedure well Assessment/Plan Active Problems (Last Reviewed 02/23/18 @ 10:04 by Marlyn Herndon) Surgical wound, non healing (Chronic) Intertriginous skin ulcer with fat layer exposed (Chronic) Assessment: Non healing surgical wound. Dianne wound ulceration. Intertriginous Dermatitis. Plan: Improving. No new concerns at this time. Debridement done as documented above, procedure was well tolerated. Continue Pomogran. Change daily. Continue Miconazole powder in the abdominal fold. Advised to not put the powder on the wound. 100% cotton underwear advised and loose fitting clothing also recommended. Increased protein intake. Follow up with me in 2 weeks. All her question were answered and she was advised to call with any questions or concerns. This note was generated with [employer] software. It may contain incorrect words, spelling, and punctuation that were not noted in checking the note before signing.
--- NOTE | 2018-04-29 09:40 | PN.PCM_ITS ---
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 History of Wound: Ms. Cowan is a 57 year old who was referred to the wound center due to non healing surgical wound and periwound ulceration. She had a hysterectomy about 2 weeks ago which was said to be uneventful however, she had a 2 week follow up yesterday and was noted to have worsening abdominal ulcerations around the wound site. She denies any known precipitating factor. She also reports feeling well otherwise. Progress of Wound: Improving. No new complaints at this time. - Physical Exam Vital Signs Temp Pulse Resp BP 97.5 F L 94 18 152/78 H 04/29/18 09:00 04/29/18 09:00 04/29/18 09:00 04/29/18 09:00 General: Alert, Oriented x3, Cooperative, No apparent distress HEENT: Atraumatic, Normocephalic Oral: Moist Mucosa Neck: Supple Lungs: Normal air movement Abdomen: Soft, Non Tender, Obese Skin: Ulcer/ Wound Wound Measurements and Assessment WC - Nurse 1 - General Ulcer Measurement Start: 04/05/18 15:32 Freq: Status: Active Protocol: Activity Type Activity Date Activity User E-Sign Co-Sign Detail Recorded Client Recorded Date Recorded By Document 04/29/18 09:00 [id number] 04/29/18 09:08 RB 04/29/18 09:00 Wound Center Nurse 1 [Ulcer Assessment] 1. lower mid abd cluster -Combined with other wound No -Current Size (cm) - Length 0.6 -Current Size (cm) - Width 0.3 -Current Size (cm) - Depth 0.3 -Total Square Cm 0.18 -Photo Taken No -Tunneling No -Undermining/Tunneling No -Circular Undermining No -Exudate Amt Small (1-33%) -Exudate Type Serosanguineous -Wound Margin Distinct, Outline Attached -Granulation Amt Large (67-100%) -Granulation Quality [place] -Slough/Fibrin Yes -Necrosis Amt Small (1-33%) -Necrotic Tissue Type Adherent Slough -Structure Exposed N/A -Texture (Dianne-wound Skin Appearance) Assessed -Moisture (Dianne-wound Skin Appearance Assessed ) -Color (Dianne-wound Skin Appearance) Assessed -Temperature (Dianne-wound Skin No Abnormality Appearance) (Pt Warm) -Tenderness on Palpation (Dianne-wound No Skin Appearance) -Ulcer Cleansing Rinsed/ Irrigated with Saline -Foul Odor after Cleansing No -Anesthetic Used 4% Lidocaine Solution - Nurse 2 - General Ulcer CM Notes Start: 04/05/18 15:32 Freq: Status: Active Protocol: Activity Type Activity Date Activity User E-Sign Co-Sign Detail Recorded Client Recorded Date Recorded By Document 04/29/18 09:19 MW [id number] 04/29/18 09:20 MW 04/29/18 09:19 Wound Center Nurse 2 [Procedure/Treatment] -Time 09:19 -Correct Patient Yes -Correct Side, Site, Position Yes -Correct Procedure Yes -Procedure Performed Yes -Type of Procedure Debridement -Clinical Debridement Subcutaneous -Post Debridement Size (cm) - Length 0.3 -Post Debridement Size (cm) - Width 0.8 -Post Debridement Size (cm) - Depth 0.2 -Total Square Cm 0.24 -Wound/Ulcer Outcome Not Healed -Ulcer Cleansing Rinsed/ Irrigated with Saline -Foul Odor after Cleansing No -Bioengineered Tissue No -Bleeding Controlled with Pressure -Offloading No -Treatment Response Procedure Tolerated Well [See Physician Procedure note for Specifics] Pain Scale: 0-10 Numeric [Pain] -Is Patient Pain Free? No Musculoskeletal: No Muscle Wasting Neurological: Cranial nerves II-XII grossly intact Psych/Mental Status: Normal Affect Debridement Note Post-Debridement Measurements/Treatment - Nurse 2 - General Ulcer CM Notes Start: 04/05/18 15:32 Freq: Status: Active Protocol: Activity Type Activity Date Activity User E-Sign Co-Sign Detail Recorded Client Recorded Date Recorded By Document 04/15/18 10:24 MW [id number] 04/15/18 10:26 MW Document 04/22/18 08:36 MW [id number] 04/22/18 08:39 MW Document 04/29/18 09:19 MW [id number] 04/29/18 09:20 MW 04/15/18 04/22/18 04/29/18 10:24 08:36 09:19 Wound Center Nurse 2 1. lower mid abd cluster -Time 10:25 08:36 09:19 -Correct Patient Yes Yes Yes -Correct Side, Site, Position Yes Yes Yes -Correct Procedure Yes Yes Yes -Procedure Performed Yes Yes Yes -Type of Procedure Debridement Debridement Debridement -Clinical Debridement Subcutaneous Subcutaneous Subcutaneous -Post Debridement Size (cm) - Length 0.5 0.5 0.3 -Post Debridement Size (cm) - Width 2.0 0.9 0.8 -Post Debridement Size (cm) - Depth 0.4 0.3 0.2 -Total Square Cm 1.00 0.45 0.24 -Wound/Ulcer Outcome Not Healed Not Healed Not Healed -Ulcer Cleansing Rinsed/ Rinsed/ Rinsed/ Irrigated with Irrigated with Irrigated with Saline Saline Saline -Foul Odor after Cleansing No No No -Bioengineered Tissue No No No -Bleeding Controlled with Pressure Pressure Pressure -Offloading No No No -Treatment Response Procedure Procedure Procedure Tolerated Well Tolerated Well Tolerated Well Pain Scale: 0-10 Numeric Is Patient Pain Free? Yes Yes No Wound debrided: Abdominal Wound Grade/Stage: Stage II Type of Debridement: Excisional debridement Anesthesia Used: 4% Lidocaine Solution Depth: Down to and including healthy tissue, in the subcutaneous layer Percentage of wound debrided: 100 Instrument Used: 3mm curette Tissue Removed: Slough and devitalized tissue Severity: Fat Layer Exposed Amount of bleeding with debridement: Mild Bleeding Controlled with: Pressure Patient tolerated procedure well Assessment/Plan Active Problems (Last Reviewed 02/23/18 @ 10:04 by Marlyn Herndon) Surgical wound, non healing (Chronic) Intertriginous skin ulcer with fat layer exposed (Chronic) Assessment: Non healing surgical wound. Dianne wound ulceration. Intertriginous Dermatitis. Plan: Improving. No new concerns at this time. Debridement done as documented above, procedure was well tolerated. Continue Pomogran. Change daily. Continue Miconazole powder in the abdominal fold. Advised to not put the powder on the wound. 100% cotton underwear advised and loose fitting clothing also recommended. Increased protein intake. Follow up with me in 2 weeks. All her question were answered and she was advised to call with any questions or concerns. This note was generated with [employer] software. It may contain incorrect words, spelling, and punctuation that were not noted in checking the note before signing.
--- OUTSIDE RECORDS SUMMARY | 2018-05-29 12:01 | XMS RPT_ITS ---
:1960 Author Organization OHIP Support Name Relationship Address Phone JACOB COWAN Unavailable [address] + [place] [address] R Unavailable Unavailable Unavailable EDINGTON JACOB Unavailable [address] + [place] [address] R Unavailable Unavailable Unavailable EDINGTON JACOB Unavailable [address] + [place] [address] R Unavailable Unavailable Unavailable EDINGTON, JACOB Unavailable [address] + [place] [address] R Unavailable Unavailable Unavailable EDINGTON JACOB Unavailable [address] + [place] [address] R Unavailable Unavailable Unavailable EDINGTON, JACOB Unavailable [address] + [place] [address] R Unavailable Unavailable Unavailable EDINGTON, JACOB Unavailable [address] + [place] [address] R Unavailable Unavailable Unavailable EDINGTON, JACOB Unavailable [address] + [place] [address] R Unavailable Unavailable Unavailable EDINGTON, JACOB Unavailable [address] + [place] [address] R Unavailable Unavailable Unavailable EDINGTON, JACOB Unavailable [address] + [place] [address] R Unavailable Unavailable Unavailable EDINGTON, JACOB Unavailable [address] + [place] [address] R Unavailable Unavailable Unavailable EDINGTON, JACOB Unavailable [address] + [place] [address] R Unavailable Unavailable Unavailable EDINGTON, JACOB Unavailable [address] + [place] [address] R Unavailable Unavailable Unavailable EDINGTON, JACOB Unavailable [address] + [place] [address] R Unavailable Unavailable Unavailable JOSE COWANER Unavailable [address] + [place] [address] R Unavailable Unavailable Unavailable JOSE COWANER Unavailable [address] + [place] [address] R Unavailable Unavailable Unavailable JOSE COWANER Unavailable [address] + [place] [address] R Unavailable Unavailable Unavailable JOSE COWANER Unavailable [address] + [place] [address] R Unavailable Unavailable Unavailable JOSE COWANER Unavailable [address] + [place] [address] R Unavailable Unavailable Unavailable JOSE COWANER Unavailable [address] + [place] [address] R Unavailable Unavailable Unavailable JOSE COWANER Unavailable [address] Unavailable [place] [id number] NOT GIVEN Unavailable Unavailable Unavailable JOSE COWANER Unavailable [address] + [place] [address] R Unavailable Unavailable Unavailable JACOB COWAN Unavailable [address] + [place] [address] R Unavailable Unavailable Unavailable JOSE COWANER Unavailable [address] + [place] [address] R Unavailable Unavailable Unavailable JOSE COWANER Unavailable [address] + [place] [address] R Unavailable Unavailable Unavailable JOSE COWANER Unavailable [address] + [place] [address] R Unavailable Unavailable Unavailable Care Team Providers Name Role Phone SONALI CABRERA Admitting Unavailable SONALI CABRERA Attending Unavailable SONALI CABRERA Primary Care Unavailable MARGOT GONZALEZ MD Consulting Unavailable PROVIDER, UNKNOWN Consulting Unavailable PROVIDER, UNKNOWN Consulting Unavailable Campbell Harmon Attending Unavailable Campbell Harmon Referring Unavailable aMrgot Gonzalez Attending Unavailable Mary Mendiola Attending Unavailable Margot Gonzalez Referring Unavailable Mary Mendiola Attending Unavailable MarcanthonyMary Referring Unavailable Marcanthony, Mary Attending Unavailable MarcanthonyMary Referring Unavailable [facility] Unavailable Marcanthony, Mary Attending Unavailable MarcanthonyMary Referring Unavailable [facility] Primary Care Unavailable Julia Agosto Consulting Unavailable NubiaonyMary Attending Unavailable [facility] Referring Unavailable [facility] Primary Care Unavailable MarcanthonyMary Admitting Unavailable Marcanthony, Mary Attending Unavailable MarcanthonyMary Referring Unavailable [facility] Unavailable Marcanthony, Mary Admitting Unavailable Marcanthony, Mary Attending Unavailable MarcanthonyMary Referring Unavailable [facility] Unavailable Mary Mendiola Consulting Unavailable Marcanthony, Mary Admitting Unavailable Marcanthony, Mary Attending Unavailable Mary Mendiola Referring Unavailable [facility] Unavailable Mary Mendiola Consulting Unavailable NubiaonyMary Attending Unavailable [facility] Referring Unavailable Oleghe, Efewongbe Attending Unavailable [facility] Primary Care Unavailable Oleghe, Efewongbe Attending Unavailable [facility] Unavailable Oleghe, Efewongbe Referring Unavailable Elmer Zelaya Attending Unavailable MarcanthonyMary Referring Unavailable Oleghe, Efewongbe Attending Unavailable Oleghe, Efewongbe Attending Unavailable Oleghe, Efewongbe Referring Unavailable Oleghe, Efewongbe Attending Unavailable Oleghe, Efewongbe Referring Unavailable NubiaonyMary Attending Unavailable [facility] Referring Unavailable Oleghe, Efewongbe Attending Unavailable Oleghe, Efewongbe Referring Unavailable [facility] Primary Care Unavailable Oleghe, Efewongbe Attending Unavailable Oleghe, Efewongbe Referring Unavailable Oleghe, Efewongbe Attending Unavailable Oleghe, Efewongbe Referring Unavailable Oleghe, Efewongbe Attending Unavailable Oleghe, Efewongbe Referring Unavailable Oleghe, Efewongbe Attending Unavailable Oleghe, Efewongbe Referring Unavailable Oleghe, Efewongbe Attending Unavailable Oleghe, Efewongbe Referring Unavailable Oleghe, Efewongbe Attending Unavailable Campbell Harmon Referring Unavailable Margot Gonzalez Primary Care Unavailable PROBLEMS PROBLEMS DATE TYPE CONDITION / CODE ATTENDING STATUS SOURCE 04/13/2018 Unknown L98.492 - Oleghe, Active [place] 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[facility] ulcer of skin of Hospital other sites with fat Repository layer exposed / L98.492(ICD-10) 04/13/2018 Unknown T81.89XA - Other Oleghe, Active [place] complications of [facility] procedures, not Hospital elsewhere Repository classified, initial encounter / T81.89XA(ICD-10) 02/23/2018 Unknown Z09 - Encounter for Marcanthony, Active [place] follow-up [facility] examination after Hospital completed treatment Repository for conditions other than malignant neoplasm / Z09(ICD-10) 02/18/2018 Unknown T81.41XA - Infection Olevone, Active [place] following a [facility] procedure, Hospital superficial Repository incisional surgical site, initial encounter / T81.41XA(ICD-10) 01/15/2018 Unknown G89.18 - Other acute Marcanthony, Active [place] postprocedural pain [facility] / G89.18(ICD-10) Hospital Repository 02/05/2018 Unknown Z01.810 - Encounter Elmer Zelaya Active [place] for preprocedural [facility] cardiovascular Hospital examination / Repository Z01.810(ICD-10) 02/16/2018 Unknown N95.0 - Marcanthony, Active [place] Postmenopausal [facility] bleeding / Hospital N95.0(ICD-10) Repository 02/16/2018 Unknown R19.00 - Marcanthony, Active [place] Intra-abdominal and [facility] pelvic swelling, Hospital mass and lump, Repository unspecified site / R19.00(ICD-10) 02/16/2018 Unknown D25.1 - Intramural Marcanthony, Active [place] leiomyoma of uterus [facility] / D25.1(ICD-10) Hospital Repository 11/11/2017 Unknown Z12.4 - Encounter Marcanthony, Active [place] for screening for [facility] malignant neoplasm [facility] of cervix / Repository Z12.4(ICD-10) 11/11/2017 Unknown Z11.51 - Encounter Marcanthony, Active [place] for screening for [facility] human papillomavirus Hospital (HPV) / Repository Z11.51(ICD-10) 11/11/2017 Unknown Z12.31 - Encounter Maury, Active [place] for screening [facility] mammogram for Hospital malignant neoplasm Repository of breast / Z12.31(ICD-10) 11/11/2017 Unknown Z01.411 - Encounter Maury Active [place] for gynecological [facility] examination [facility] (general) (routine) Repository with abnormal findings / Z01.411(ICD-10) 10/20/2017 Unknown E03.9 - Margot Gonzalez Active [place] Hypothyroidism, [facility] unspecified / Hospital E03.9(ICD-10) Repository 10/20/2017 Unknown I10 - Essential MiedelMargot Active [place] (primary) [facility] hypertension / Hospital I10(ICD-10) Repository 10/20/2017 Unknown E66.9 - Obesity, MiedMargot celeste Active [place] unspecified / Community E66.9(ICD-10) Hospital Repository PROCEDURES PROCEDURES No Procedure Records FoundRESULTS RESULTS Observed: 02/25/2018 Status: F Source: [place] CULTURE, DEEP WOUND 9:25 AM REPOSITORY Comments: ABD ULCER Gram Stain Gram Stain 4+ Red Blood Cells 1+ Gram positive cocci 1+ Gram negative rods No White Blood Cells No Epithelial cells Wound Culture #2 There are no CLSI standards for interpretation of this Drug/Organism combination. ORGANISM 1: Citrobacter freundii Amount Growth 1+ ORGANISM 2: Corynebacterium amycolatum/xer Amount Growth 2+ Citrobacter freundii: REACTION Amoxacillin/Clavulanic Acid $ >=32 R Cefazolin $ >=64 R Cefepime $ <=1 S Ceftriaxone $ <=1 S Ciprofloxacin $ <=0.25 S Ertapenim $$$ <=0.5 S Gentamicin $ <=1 S Imipenem *NF 1 S Levofloxacin $ 0.5 S Tobramycin $ <=1 S Trimethoprim/Sulfametho $ <=20 S (NF) indicates non-formulary drug at [facility]. Approval by Infectious Disease Specialist required before non-formulary drugs may be ordered and/or dispensed. Cult, Anaerobic Studies have confirmed that Anaerobic Gram Positive Cocci are routinely susceptible to: Penicillin/Ampicillin, Ampicillin/Sulbactam, Piperacillin/Tazobactam, Cefoxatin, Ertapenem, Imipenem, Meropenem and Metronidazole and vary in resistance to: Clindamycin and Moxifloxacin. ORGANISM 1: Anaerobic cocci Performed By: #### M100.1500 #### [facility] [address] [place], [address] CORRESPONDENCE ANALYST OFFICE VISIT Observed: 02/23/2018 Status: F Source: [place] REPORT 10:49 AM REPOSITORY [facility] [address] 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 Is patient in pain?: No Allergies penicillin G Allergy (Mild, Verified 02/23/18 10:03) Other METAL Allergy (Uncoded 02/23/18 10:03) Other Medications aspirin 81 mg chewable tablet 81 mg PO QDAY 11/10/17 [History Confirmed 02/23/18] cinnamon bark 500 mg capsule 1,000 mg PO DAILY 11/10/17 [History Confirmed 02/23/18] levothyroxine 125 mcg tablet 125 mcg PO QDAY 11/10/17 [History Confirmed 02/23/18] multivitamin,fm-tyfn-lmwfeugf tablet 1 tab PO QDAY 11/10/17 [History Confirmed 02/23/18] valsartan 160 mg-hydrochlorothiazide 25 mg tablet 1 tab PO QDAY 11/10/17 [History Confirmed 02/23/18] fluoxetine 40 mg capsule 40 mg PO .every other day cap 12/18/17 [History Confirmed 02/23/18] Ibuprofen 600 mg PO 4X/DAY 01/28/18 [History Confirmed 02/23/18] Valsartan/Hydrochlorothiazide [Valsartan-Hctz 160-25 mg Tab] 1 ea PO DAILY 01/28/18 [History Confirmed 02/23/18] Is last menstrual period known: No Post menopausal: Yes Patient : No : No PFSH Medical History Thyroid disorder (Acute) Surgical History S/P NICK (total abdominal hysterectomy) (Acute) History of ankle surgery (Acute) History of hernia repair (Acute) History of laparotomy (Acute) Family History Father Cancer lung-smoker Mother Diabetes Social History Smoking Status: Former smoker alcohol intake: current details: social substance use type: does not use caffeine: Yes what type of physical activity do you participate in: walking seatbelt use: always do you feel safe at home: Yes additional social history: Jacob- Both are retired HPI 6 week post op: Details: PORSHA COWAN is a 57 year old who presents for postop visit. wound healing- seeing wound center Pregancy History 4 Elective abortions Hx Para 5 Spontaneous abortions Past Pregnancies Del. DateName GA/Weeks Outcome Route Bth WeighInfant GeLabor LgtAnesthesiDel LocatProvider FOB t n h a n Delivery Date: No notes to display Delivery Date: On 11/10/17 @ 11:11 Mary Mendiola TTTS around and shortly after Delivery Date: No notes to display Delivery Date: No notes to display ROS Const Constitutional: Reports system reviewed and no additional complaints, except as docu GI GI: Denies abdominal pain, nausea, vomiting or cramping : Denies urinary frequency, vaginal dryness, vaginal discharge, urinary urgency, urinary incontinence, vaginal odor or pelvic pain Exam Const General: cooperative, healthy appearing, comfortable, no acute distress GI Other: abdominal wound with gauze present External Female Exam: normal external appearance, normal appearance of the urethra Urethra: normal appearance of the urethra Speculum Exam - Vagina: normal appearance of the vagina, other (normal vaginal length, apex well supprted and healed, intact no granulation) Speculum Exam - Cervix: cervix absent Bimanual Exam- Vagina AND Uterus: uterus absent Bimanual Exam- Adnexa, other: adnexae non-tender, pelvic support normal Pelvic Support: normal Other: vaginal cuff normal and intact, good vaginal length, no granulation tissue present Assessment AND Plan Problems 1. Postoperative examination Z09 Plan routine postop care fu annually. continue wound care center followup Coding Level of Care Code No Charge Diagnoses Postoperative examination Z09 02/23/18 1049 <Electronically signed by Mary Mendiola MD> Date Mary Mendiola MD Cosigner Signature: Date (if applicable) CC: WOUND CTR HISTORY Observed: 02/02/2018 Status: F Source: MICHAEL AND PHYSICAL 4:52 PM REPOSITORY [facility] [address] [place] [address] Wound Ctr History AND Physical 01/28/18 0955 MR#: [id number] Acct: [id number] Name: PORSHA COWAN Rep #: [id number] : 1960 57 From: Campbell Harmon MD PCP: Margot Gonzalez MD Status: DIS RCR Y Location: (1) Surgical wound, non healing Status: Acute Current Visit: Yes Code(s): T81.89XA - Other complications of procedures, not elsewhere classified, initial encounter History of Present Illness Chief Complaint: Non healing surgical wound. History of Wound: Ms. Cowan is a 57 year old who was referred to the wound center due to non healing surgical wound and periwound ulceration. She had a hysterectomy about 2 weeks ago which was said to be uneventful however, she had a 2 week follow up yesterday and was noted to have worsening abdominal ulcerations around the wound site. She denies any known precipitating factor. She also reports feeling well otherwise. Past Medical History Allergies/Adverse Reactions: Allergies penicillin G Allergy (Mild, Verified 01/27/18 10:39) Other METAL Allergy (Uncoded 01/27/18 10:39) Other Home Medications: Ambulatory Orders Medication Instructions Recorded aspirin 81 mg chewable tablet 81 mg PO QDAY 11/10/17 cinnamon bark 500 mg capsule 1,000 mg PO DAILY 11/10/17 Smoking Status: Former smoker Review of Systems Constitutional: Denies: Anorexia, Malaise, Weakness Eyes: Denies: Blurred vision, Pain, Redness HEENT: Denies: Difficulty Hearing, Difficulty Swallowing Cardiovascular: Denies: Chest Pain, Chest Tightness Respiratory: Denies: Cough, Hemoptysis Gastrointestinal: Denies: Hematemesis, Vomiting - Physical Exam Vital Signs Temp Pulse Resp BP 97.5 F L 77 18 148/87 H 01/28/18 08:27 01/28/18 08:27 01/28/18 08:27 01/28/18 08:27 General: Alert, Oriented x3, Cooperative, No apparent distress HEENT: Atraumatic Oral: Moist Mucosa Neck: Supple Lungs: Normal air movement Cardiovascular: Regular rate, Regular Rhythm Abdomen: Soft, Obese Extremities: No cyanosis Skin: Ulcer/ Wound Wound Measurements and Assessment WC - Nurse 1 - General Ulcer Measurement Start: 01/28/18 08:26 Freq: Status: Active Protocol: Activity Type Activity Date Activity User E-Sign Co-Sign Detail Recorded Client Recorded Date Recorded By Document 01/28/18 08:27 AN [id number] 01/28/18 08:53 AN Wound Center Nurse 1 [Ulcer Assessment] 1. lower mid abd cluster -Combined with other wound No -Current Size (cm) - Length 4.4 -Current Size (cm) - Width 16.8 WC - Nurse 2 - General Ulcer CM Notes Start: 01/28/18 08:26 Freq: Status: Active Protocol: Activity Type Activity Date Activity User E-Sign Co-Sign Detail Recorded Client Recorded Date Recorded By Document 01/28/18 09:21 MW [id number] 01/28/18 09:29 MW Musculoskeletal: No Muscle Wasting Neurological: Cranial nerves II-XII grossly intact Psych/Mental Status: Normal Affect Debridement Note Post-Debridement Measurements/Treatment WC - Nurse 2 - General Ulcer CM Notes Start: 01/28/18 08:26 Freq: Status: Active Protocol: Activity Type Activity Date Activity User E-Sign Co-Sign Detail Recorded Client Recorded Date Recorded By Document 01/28/18 09:21 MW [id number] 01/28/18 09:29 MW Wound Center Nurse 2 1. lower mid abd cluster -Time 09:21 -Correct Patient Yes -Correct Side, Site, Position Yes Wound debrided: Abdominal Wound Grade/Stage: Stage II Type of Debridement: Excisional debridement Anesthesia Used: 4% Lidocaine Solution Depth: Down to and including healthy tissue, in the subcutaneous layer Percentage of wound debrided: 100 Instrument Used: 7mm curette Tissue Removed: Slough and devitalized tissue Severity: Fat Layer Exposed Amount of bleeding with debridement: Mild Bleeding Controlled with: Pressure Patient tolerated procedure well Assessment/Plan Active Problems (Last Reviewed 01/27/18 @ 10:40 by Marlyn Herndon) Surgical wound, non healing (Acute) Assessment: No healing surgical wound. Dianne wound ulceration. Intertriginous Dermatitis. Plan: Debridement done as documented above, procedure was well tolerated. 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 Cultures taken. Will await report before antibiotics. Apply krystle with adapatic over top. Change daily. Miconazole powder in the abdominal fold. Advised to not put the powder on the wound. 100% cotton underwear advised and loose fitting clothing also recommended. Increased protein intake. Follow up in 1 week. All her question were answered and she was advised to call with any questions or concerns. 02/02/181651 <Electronically signed by Campbell Harmon MD> Date Campbell Harmon MD CC: Signed Observed: 01/28/2018 Status: F Source: [place] CULTURE, DEEP WOUND 9:20 AM REPOSITORY Gram Stain Gram Stain 3+ Red Blood Cells No organisms seen No White Blood Cells Wound Culture ORGANISM 1: Enterococcus casseliflavus (D) Amount Growth 1+ Enterococcus casseliflavus (D): REACTION Ampicillin $ <=2 S Benzylpenicillin NF 0.25 S Gentamicin SYN-S S Tigecycline $$$$ <=0.12 S Streptomycin $ SYN-S S Vancomycin $ 4 R (NF) indicates non-formulary drug at [facility]. Approval by Infectious Disease Specialist required before non-formulary drugs may be ordered and/or dispensed. * CLSI guidelines does not recommend testing of cephalosporins. This interpretation is deduced from Beta-lactam/penicillin results. Cult, Anaerobic There are no CLSI standards for interpretation of this Drug/Organism combination. ORGANISM 1: Actinomyces species Performed By: #### M100.1500 #### [facility] [address] [place], [address] CORRESPONDENCE ANALYST OFFICE VISIT Observed: 01/27/2018 Status: F Source: [place] REPORT 11:27 AM REPOSITORY [facility] 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 Is patient in pain?: No Allergies penicillin G Allergy (Mild, Verified 01/27/18 10:39) Other METAL Allergy (Uncoded 01/27/18 10:39) Other Medications aspirin 81 mg chewable tablet 81 mg PO QDAY 11/10/17 [History Confirmed 01/27/18] cinnamon bark 500 mg capsule 1,000 mg PO DAILY 11/10/17 [History Confirmed 01/27/18] levothyroxine 125 mcg tablet 125 mcg PO QDAY 11/10/17 [History Confirmed 01/27/18] multivitamin,de-dbpi-nwsqtzwb tablet 1 tab PO QDAY 11/10/17 [History Confirmed 01/27/18] valsartan 160 mg-hydrochlorothiazide 25 mg tablet 1 tab PO QDAY 11/10/17 [History Confirmed 01/27/18] fluoxetine 40 mg capsule 40 mg PO .every other day cap 12/18/17 [History Confirmed 01/27/18] Clobetasol Propionate 1 applic TOPICAL QHS 01/06/18 [History Confirmed 01/27/18] Naproxen [Naprosyn] 250 - 500 mg PO Q8H PRN PRN #30 tab 01/13/18 [Rx Confirmed 01/27/18] Oxycodone HCl/Acetaminophen [Percocet 5-325] 1 - 2 tab PO Q4H PRN PRN 7 Days #28 tab 01/13/18 [Rx Confirmed 01/27/18] Is last menstrual period known: No Post menopausal: Yes Patient : No : No PFSH Medical History Thyroid disorder (Acute) Surgical History History of ankle surgery (Acute) History of hernia repair (Acute) History of laparotomy (Acute) Family History Father Cancer lung-smoker Mother Diabetes Social History Smoking Status: Former smoker alcohol intake: current details: social substance use type: does not use caffeine: Yes what type of physical activity do you participate in: walking seatbelt use: always do you feel safe at home: Yes additional social history: Jacob- Both are retired HPI 2 WEEK POST OP: Details: PORSAH COWNA is a 57 year old who presents for postop incision check. she is still having pain in the area and she has noticed an abnormal appearance for the last few days but thought it was just healing. she denies any fevers. Pregancy History 4 Elective abortions Hx Para 5 Spontaneous abortions Past Pregnancies Del. DateName GA/Weeks Outcome Route Bth WeighInfant GeLabor LgtAnesthesiDel LocatProvider FOB t n h a n Delivery Date: No notes to display Delivery Date: On 11/10/17 @ 11:11 Mary Mendiola TTTS around and shortly after Delivery Date: No notes to display Delivery Date: No notes to display ROS Const Constitutional: Reports system reviewed and no additional complaints, except as docu GI GI: Reports system reviewed and no additional complaints, except as docu Exam Const General: cooperative, well groomed, comfortable, healthy appearing GI Other: Incision: intact with large area of erythema and induartion and skin breakdown with granulation tissue present. no fluctuance Assessment AND Plan Problems 1. Postoperative cellulitis of surgical wound, initial encounter T81.4XXA wound center referral Plan recommend wound center referral Coding Level of Care Code No Charge Diagnoses Postoperative cellulitis of surgical wound, initial encounter T81.4XXA Encounter type: initial encounter 01/27/18 1127 <Electronically signed by Mary Mendiola MD> Date Mary Mendiola MD Cosigner Signature: Date (if applicable) CC: DISCHARGE INSTRUCTION Observed: 01/14/2018 Status: F Source: IONE 8:45 PM REPOSITORY [facility] Medical Records Department [address] [place] [address] Instructions for Home/Discharge Instructions 01/14/182044 MR#: [id number] Acct: [id number] Name: PORSHA COWAN Rep #: [id number] : 1960 57 From: Mary Mendiola MD PCP: Margot Gonzalez MD Status: ADM IN Discharge Diet: No Restrictions Discharge Activity: Return to Normal Activity, May Not Drive - while taking narcotic pain medications. May resume sexual activity in: 6-8 weeks Call your doctor if your incision/area has: Continuous Slow Oozing, Sudden Increased Bleeding, Increased Pain/ Swelling, Increased Redness, Foul Smelling Discharge Call your doctor if you observe: Fever of 101 or Higher Allergies/Adverse Reactions: Allergies penicillin G Allergy (Mild, Verified 01/06/18 10:54) Other METAL Allergy (Uncoded 01/06/18 10:55) Other Medications to take at Discharge aspirin 81 mg chewable tablet 81 mg PO QDAY 11/10/17 cinnamon bark 500 mg capsule 1,000 mg PO DAILY 11/10/17 levothyroxine 125 mcg tablet 125 mcg PO QDAY 11/10/17 multivitamin,nh-vpjo-ylrqruhd tablet 1 tab PO QDAY 11/10/17 valsartan 160 mg-hydrochlorothiazide 25 mg tablet 1 tab PO QDAY 11/10/17 fluoxetine 40 mg capsule 40 mg PO .every other day cap 12/18/17 Clobetasol Propionate 1 applic TOPICAL QHS 01/06/18 Naproxen [Naprosyn] 250 - 500 mg PO Q8H PRN PRN #30 tab 01/13/18 Oxycodone HCl/Acetaminophen [Percocet 5-325] 1 - 2 tablet PO Q4H PRN PRN 7 Days #28 tablet 01/13/18 The following prescriptions were given: Oxycodone HCl/Acetaminophen [Percocet 5-325] 1 - 2 tablet PO Q4H PRN PRN 7 Days #28 tablet PRN Reason: Moderate-Severe pain Naproxen [Naprosyn] 250 - 500 mg PO Q8H PRN PRN #30 tab PRN Reason: MILD PAIN Primary Care Physician: Margot Gonzalez MD [Primary Care Provider] - Test Results: Test results from this visit will be discussed in further detail at your follow-up appointment, if applicable. Please Follow Up With: Mary Mendoila MD - [phone] When: in 2 weeks 01/14/182044 <Electronically signed by Mary Mendiola MD> Date Mary Mendiola MD CC: Margot Gonzalez MD CBC-COMPLETE BLOOD CNT Collected: 01/14/2018 Status: F Source: MICHAEL NO DIFF 5:05 AM REPOSITORY TYPE CODE TESTS RESULT OUT OF RANGE REFERENCE UNITS LAB L100.1000 4.4-11.0 K/mm3 High WBC 12.0 LAB L100.1200 4.2-5.4 M/mm3 Low RBC 3.87 LAB L100.1300 12.0-15.0 g/dl Low HGB 10.7 LAB L100.1400 37-47 % Low HCT 33.6 LAB L100.1500 81-99 fL Normal MCV 86.8 LAB L100.1600 27.0-32.0 pg Normal MCH 27.6 LAB L100.1700 32-36 g/gl Low MCHC 31.8 LAB L100.1810 11.6-14.6 % High RDW CV 15.1 LAB L100.1820 35.1-43.9 fl High RDW SD 47.4 LAB L100.1900 150-450 K/mm3 Normal PLT 304 LAB L100.2000 6.2-12.0 fl Normal MPV 11.2 Performed By: #### L100.0500 #### [facility] [address] [place], [address] OPERATIVE REPORT Observed: 01/13/2018 Status: F Source: IONE 8:56 [facility] REPOSITORY [facility] Medical Records Department [address] [place] [address] Operative Report 01/13/182049 MR#: [id number] Acct: [id number] Name: PORSHA COWAN Rep #: [id number] : 1960 57 From: Mary Mendiola MD PCP: Margot Gonzalez MD Status: ADM IN Y Location: [place] [address] Problem List (1) Pelvic mass Status: Acute Comment: ct abdomen pelvis ordered (2) Post-menopausal bleeding Status: Acute Comment: us, emb Report of Operation Date of Procedure: 01/13/18 Pre-Operative Diagnosis: PMB fibroids right ovarian mass Post-Operative Diagnosis: same Surgery/Procedure Performed:: sherrie Description of Surgical Findings:: enlarged smooth right ovary 7 1/2 lbs normal left tube and ovary gypsum calciner: Silas Shahid Type of Anesthesia:: General Special Medications: lili Specimen's removed: uterus tubes and ovaries Drains: bryant Estimated Blood Loss (mL): 300 Fluids Replaced: crystalloid Description of Procedure: The patient was taken to the operating room and placed under general anesthesia in the dorsal supine position. She was prepped and draped in the normal sterile fashion. Bryant catheter was placed in the bladder SCDs were on and preoperative antibiotics were given. A Pfannenstiel skin incision was made with the scalpel and carried through the unknowingly of the fascia with the scalpel fascia was nicked in the midline incision extended laterally. Rectus bellies were dissected off superiorly and inferiorly sharply and bluntly and peritoneum entered digitally incision stretched laterally and an Kiki retractor was placed after the bowel was packed away. The right ovary was identified and noted to be enlarged significantly measuring approximately 25 x 20 x 18 cm. It was smooth in appearance and fluctuant being cystic. It was freely mobile and was lifted up out of the incision in the infundibular ligament and utero-ovarian ligament were both transected and suture ligated with 0 Monocryl. The left ovary and tube were noted to be within normal limits and the uterus was mildly enlarged with small fibroids present. The round ligaments were transected bilaterally and suture ligated and the broad ligament was opened up and the infundibulopelvic ligament vessels were double clamped cut and suture ligated with 0 Monocryl. The bladder flap was created taking down the vesicouterine peritoneum and the uterine vessels were skeletonized and clamped cut and suture ligated with 0 Monocryl bilaterally. The cardinal ligament were then clamped cut and suture ligated bilaterally with 0 Monocryl followed by progressive bites of the parametrium down to the level of the cervix. Good attention was paid to keep the bladder inferior to the clamps and dissected off of the cervix and lower uterine corpus. The clamps were then placed underneath the cervix bilaterally the uterus amputated off of the vaginal stump and the vaginal cuff was suture ligated with 0 Monocryl [id number] sutures 3. Excellent hemostasis was noted with some raw appearance which was covered with Lili. all instruments removed from the abdomen and the peritoneum was closed with 3-0 Monocryl fascia closed with 0 PDS barbed suture, subcutaneous tissue reapproximated with 3-0 Monocryl and the skin closed with 4-0 Monocryl. Patient was awoken and taken recovery in stable condition. Grafts/Implants Used: none - Complications none - Admit VTE Documentation VTE Present on Admission: No 01/13/182055 <Electronically signed by Mary Mendiola MD> Date Mary Mendiola MD CC: Margot Gonzalez MD; Mary Mendiola MD Signed HISTORY AND PHYSICAL Observed: 01/13/2018 Status: F Source: IONE EXAM 12:52 PM REPOSITORY [facility] Medical Records Department [address] [place] [address] History and Physical 01/13/18 1006 MR#: [id number] Acct: [id number] Name: PORSHA COWAN Rep #: [id number] : 1960 57 From: Mary Mendiola MD PCP: Margot Gonzalez MD Status: ADM IN Y Location: [facility] [place] [id number] - Problem List (1) Pelvic mass Status: Acute Comment: ct abdomen pelvis ordered (2) Post-menopausal bleeding Status: Acute Comment: us, emb History and Physical Date of Admission: 01/13/18 12/18/17 Height 5 ft 8 in 12/18/17 Weight: 321 lb 8 oz 12/18/17 Body Mass Index (BMI) 48.9 12/18/17 Blood Pressure 128/80 Intake Visit Reasons: Colposcopy/pre op 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 Operator Required: No Accompanied by: Is patient in pain?: Yes Pain scale (1-10): 2 Allergies penicillin G Allergy (Mild, Verified 12/18/17 10:24) Other Medications aspirin 81 mg chewable tablet 81 mg PO QDAY 11/10/17 [History Confirmed 12/18/17] cinnamon bark 500 mg capsule mg PO 11/10/17 [History Confirmed 12/18/17] clobetasol 0.05 % topical ointment 1 applic TOPICAL QHS #30 g 11/10/17 [Rx Confirmed 12/18/17] halobetasol propionate 0.05 % topical cream 1 applic TOPICAL QDAY 11/10/17 [History Confirmed 12/18/17] levothyroxine 125 mcg tablet 125 mcg PO QDAY 11/10/17 [History Confirmed 12/18/17] multivitamin,bv-hkzb-gxdmeplr tablet 1 tab PO QDAY 11/10/17 [History Confirmed 12/18/17] valsartan 160 mg-hydrochlorothiazide 25 mg tablet 1 tab PO QDAY 11/10/17 [History Confirmed 12/18/17] fluoxetine 40 mg capsule 40 mg PO .every other day cap 12/18/17 [History Confirmed 12/18/17] Is last menstrual period known: No Patient : No : No PFSH PFSH Medical History Thyroid disorder (Acute) Surgical History History of ankle surgery (Acute) History of hernia repair (Acute) Family History Father Cancer lung-smoker Mother Diabetes Social History Smoking Status: Never smoker alcohol intake: current details: social substance use type: does not use caffeine: Yes what type of physical activity do you participate in: walking seatbelt use: always do you feel safe at home: Yes additional social history: Jacob- Both are retired Pregancy History 4 Elective abortions Hx Para 5 Spontaneous abortions Hx # Term Pregnancies Ectopic pregnancies Hx # Pregnancies Multiple births 1 # of living children Past Pregnancies Del. Date Name GA/Weeks Outcome Route Bth Weight Infant Gen Labor Lgth Anesthesia Del Locatn Provider FOB Unknown 1976 Pietro Unknown 1977 Crystal Unknown 1984 Lucila and Kym Unknown 1985 Eric Delivery Date: No notes to display Delivery Date: On 11/10/17 @ 11:11 Mary Mendiola TTTS around and shortly after Delivery Date: No notes to display Delivery Date: No notes to display HPI Colposcopy/pre op: Details: PORSHA COWAN is a 57 year old who presents for preoperative visit. she is still having intermittent bleeding and pelvic pain and pressure. she wants to have a hysterectomy in addition to the ovarian removal due to the bleeding. she had a normal CEA and CA125 Female Reproductive History Questions: Metorrhagia: Yes, Sexually active: Yes, Dyspareunia: No ROS Const Constitutional: Reports system reviewed and no additional complaints, except as docu; denies chills, fever(s), weight loss or weight gain GI GI: Reports as per HPI; denies vomiting, nausea, constipation, cramping, bloating or abdominal pain : Reports as per HPI; denies vaginal dryness, vaginal discharge, urinary urgency, urinary frequency or urinary incontinence Exam Const General: cooperative, healthy appearing, comfortable, well developed Orientation: alert HENMT Head: normal to inspection Neck Neck: normal visual inspection Thyroid: thyroid normal Resp Effort AND Inspection: normal respiratory effort GI Inspection: normal to inspection, distended Palpation: soft, no guarding, mass (large mass to 2 cm above umbilicus) Assessment AND Plan Problems 1. Post-menopausal bleeding N95.0 us, emb 2. Pelvic mass R19.00 ct abdomen pelvis ordered 3. Intramural leiomyoma of uterus D25.1 Plan plan TAHBSO. normal cea and ca125. will discuss case with supervisor laboratory onc due to pelvic mass. discussed surgical risks including risks of anesthesia, infection, bleeding, injury to bowel, bladder or blood vessels, and patient wishes to proceed with surgery. Coding Level of Care Code Off vis,est,level 4 Diagnoses Post-menopausal bleeding N95.0 Pelvic mass R19.00 Intramural leiomyoma of uterus D25.1 Uterine leiomyoma location: intramural UPDATE- I have seen the patient and performed any clinically relevant updates to the history and physical exam. Mary Mendiola MD 01/13/18 1252 <Electronically signed by Mary Mendiola MD> Date Mary Mendiola MD Cosigner Signature: Date (if applicable) CC: Margot Gonzalez MD; Mary Mendiola MD Signed HYSTERECTOMY SPECIMEN Observed: 01/13/2018 Status: F Source: MICHAEL 12:00 AM REPOSITORY Patient: PORSHA COWAN : 1960 (57/F) Acct Num: [id number] Phys: Maury DELGADO,Mary Unit Num: [id number] Loc: MS2 [id number] Specimen: [id number] Received: 01/14/18952 Spec Type: HYSTERECT TISSUES TISSUES: Uterus, NOS COMMENT Please make reference to previous specimen ([id number]) endometrial biopsy with diagnosis of mildly disordered proliferative endometrium. GROSS DESCRIPTION Received in fixative is one container labeled with the patient's name and designated uterus, bilateral fallopian tubes and ovaries. The specimen consists of a hysterectomy specimen consisting of uterus with cervix, attached proximal portion of the right fallopian tube and detached left fallopian tube and ovary and detached large cystic ovary with stretched out fallopian tube. The uterus with cervix weighs 116 gm and measures 9.5 x 7 x 4 cm. The serosal surface is garcia, glistening. The ectocervical mucosa is unremarkable. The external os is slit-like in contour. The endocervical canal measures 3.5 cm in length and the endocervical mucosa is garcia, glistening and unremarkable. The triangular endometrial cavity measures 5.5 cm in length and up to 3 cm in width. The endometrial cavity shows two polyps, one in the anterior uterine wall measuring 1.5 x 1 x 0.5 cm and one in the posterior uterine wall measuring 4 x 1.5 x 0.3 cm. The myometrial wall underneath the polyp is not indurated. The rest of the endometrium is garcia, glistening and measures <0.1 cm in thickness. Sections of the myometrial wall do not reveal any mass lesion and it measures up to 2 cm in thickness. The left fallopian tube measures 5 cm in length and 0.5 cm in diameter. The fimbrial end is identified. Sections reveal unremarkable cut surfaces. The left ovary measures 2.5 x 1 x 0.8 cm. Sections reveal unremarkable cut surfaces. Attached proximal portion of right fallopian tube measures 4 cm in length and 0.5 cm in diameter. Sections reveal unremarkable cut surfaces. The cystic ovary measures 26 x 21 x 15 cm and weighs 2600 gm. The stretched fallopian tube measures 19 cm in length and 0.3 cm in diameter. The fimbrial end is identified. The external surface of the ovary is smooth. No papillation is identified. The external surface is inked black. Focal areas of papillations are noted. The largest area of papillation measures 3 x 2 x 1 cm. The rest of the cyst wall is smooth and measures 0.1 cm in thickness. The ovary contains abhijeet, cloudy fluid. Police Patrol Officer sections are submitted in 19 cassettes as follows: 1 - anterior cervix, 2 - posterior cervix, 3 AND 4 - anterior uterine wall, 5 AND 6 - posterior uterine wall, 7-9 endometrial polyps with underlying uterine wall, polyps are entirely submitted, 10 right fallopian tube and ovary, 11 rest of the left ovary, left ovary is submitted in entirety, 12 attached proximal portion of right fallopian tube, 13 right fallopian tube stretched over the cystic right ovary, 14-19 right ovary (15-19 contains the cystic ovary with area of papillations). / SJ:meaghan 01/14/18 TC:1 CPT: 54678 x2 HEADER OPERATION: Total abdominal hysterectomy, salpingo-oophorectomy PRE-OP DIAGNOSIS: Postmenopausal bleeding, pelvic mass, intramural leiomyoma of uterus TISSUE SUBMITTED: Uterus, bilateral fallopian tubes and ovaries MICROSCOPIC DESCRIPTION Slides are reviewed. MICROSCOPIC DIAGNOSIS Uterus, bilateral fallopian tubes and ovaries, abdominal hysterectomy and salpingo-oophorectomy: Cervix chronic cystic cervicitis. Endometrium disordered proliferative endometrium to focal simple cystic hyperplasia without atypia. Endometrial polyps benign endometrial polyps with simple cystic hyperplasia without atypia. Myometrium adenomyosis. Bilateral fallopian tubes - no pathologic diagnosis. Left ovary mesothelial inclusion cysts. Right ovary papillary serous cyst adenofibroma (2600 gm and 26 cm in greatest dimension). SJ:meaghan 01/15/18 Signed Ambrose Velazquez 01/15/18 <signature on file> Performed By: #### PHYST #### [facility] [address] [place] [address]. [place], [address] 12 LEAD ELECTROCARDIOGRAM Observed: 01/07/2018 Status: F Source: IONE 1:25 PM REPOSITORY [facility] Cardiovascular Services [address] [place] [id number] EKG - [facility] [place] 01/06/18 1023 MR#: [id number] Acct: [id number] Name: PORSHA COWAN Rep #: [id number] : 1960 57 From: Elmer Zelaya MD Attending Dr: Mary Mendiola MD Status: PRE IN Ordering Dr: Mary Mendiola MD Date: 01/06/18 Location: [facility] Sex: F C Admitted: Test Reason : Blood Pressure : / mmHG Vent. Rate : 072 BPM Atrial Rate : 072 BPM P-R Int : 156 ms QRS Dur : 100 ms QT Int : 378 ms P-R-T Axes : 063 049 031 degrees QTc Int : 413 ms Normal sinus rhythm Normal ECG Confirmed by GARCIA DELGADO, ELMER ([id number]), metropolitan editor FLOYD MARLOW ([id number]) on 01/07/2018 1:24:31 PM Referred By: Mary Mendiola Confirmed By:ELMER ZELAYA MD 01/07/18 1324 Date Elmer Zelaya MD CC: Margot Gonzalez MD; Mary Mendiola MD Date Dictated: 01/06/18 1023 Date Transcribed: 01/06/18 1023 Truck Driver Rubbish Collector: Signed CBC-COMPLETE BLOOD CNT Collected: 01/06/2018 Status: F Source: MICHAEL NO DIFF 11:24 AM REPOSITORY TYPE CODE TESTS RESULT OUT OF RANGE REFERENCE UNITS LAB L100.1000 4.4-11.0 K/mm3 Normal WBC 8.1 LAB L100.1200 4.2-5.4 M/mm3 Normal RBC 4.26 LAB L100.1300 12.0-15.0 g/dl Low HGB 11.7 LAB L100.1400 37-47 % Normal HCT 37.2 LAB L100.1500 81-99 fL Normal MCV 87.3 LAB L100.1600 27.0-32.0 pg Normal MCH 27.5 LAB L100.1700 32-36 g/gl Low MCHC 31.5 LAB L100.1810 11.6-14.6 % High RDW CV 15.1 LAB L100.1820 35.1-43.9 fl High RDW SD 48.0 LAB L100.1900 150-450 K/mm3 Normal PLT 267 LAB L100.2000 6.2-12.0 fl Normal MPV 11.1 Performed By: #### L100.0500 #### [facility] [address] [place], [address] THYROID STIM HORMONE Collected: 01/06/2018 Status: F Source: MICHAEL (TSH) 11:24 AM REPOSITORY TYPE CODE TESTS RESULT OUT OF RANGE REFERENCE UNITS LAB L501.9520 0.358-3.74 uIU/mL Normal TSH 1.22 Performed By: #### L501.9520 #### [facility] [address] [place], [address] TYPE AND SCREEN Collected: 01/06/2018 Status: F Source: IONE 11:24 AM REPOSITORY Order Comment: Surgery Date: 01/13/18 Hx of Preganancy in last 3 Months No Ever experience any problems with transfusion(s)? N Hx of Transfusion in last 3 Months N Reason for Type AND Screen/Red Cells: SURGERY SURGICAL PROCEDURE: 42668 TYPE CODE TESTS RESULT OUT OF RANGE REFERENCE UNITS LAB B10.0800 O Normal BLOOD TYPE GEL POSITIVE LAB B100.4000 Normal Antibody NEGATIVE Screen Performed By: #### B101.7475 #### [facility] [address] [place], [address] OPERATIVE PROCEDURES Observed: 12/23/2017 Status: F Source: [facility] 11:52 AM [facility] REPOSITORY [facility] OPERATIVE REPORT NAME ACCOUNT SEX AGE ADMIT DISCHARGE PT MED. RECORD# NUMBER DATE DATE TYPE PORSHA COWAN [id number] F 57 12/17/17 12/17/17 2 [id number] ROOM: [facility] DATE OF : 1960 DICTATING PHYSICIAN: Sonali Cabrera DATE OF SURGERY: December 17, 2017, 8:52 a.m. SURGEON: Sonali Cabrera MD MAMMOGRAPHY TECHNICIAN: ANESTHESIOLOGIST: ANESTHETIC: MAC. PREOPERATIVE DIAGNOSIS: Screening colonoscopy. POSTOPERATIVE DIAGNOSIS: Rectal polyp x1. OPERATION PERFORMED: Colonoscopy with cold grasp polypectomy. COMPLICATIONS: None. ESTIMATED BLOOD LOSS: Minimal. DRAINS: None. SPECIMEN: Rectal polyp. SIGNIFICANT FINDINGS: Colon prep was good. Small sessile rectal polyp that was completely grossly excised. DISPOSITION: Home. Diet: Regular. Activity: Regular. Medications: Regular. Follow up with Dr. Cabrera's clinic in 2 weeks. RECOMMENDATION: Based on pathology. DESCRIPTION OF OPERATION: Following the initiation of MAC anesthesia, the patient was placed in the left lateral decubitus position. A digital rectal examination was performed. There were no findings on digital rectal examination. Flexible colonoscope was then introduced into the anus and advanced to the ileocecal junction under direct visualization. The scope was then slowly withdrawn and the colonic mucosa inspected Page 1 of 2 MAYELA PORSHA Operative Report meticulously. There were no abnormalities appreciated within the cecum, ascending colon, transverse colon, descending colon, or sigmoid colon. The scope was withdrawn into the rectum where a small sessile polyp was visualized. The polyp was grossly entirely excised using a cold grasp polypectomy forcep. The scope was then retroflexed in the rectum and was without findings. The scope was then straightened, the colon desufflated, and the scope removed. The patient was then awakened and taken to the PACU in good and stable condition. Dictated By: Sonali Cabrera MD 12/17/17 08:53 JOB #: [id number] Transcribed By: am 12/17/17 12:51 Electronically signed by: E-SIGN DR. CABRERA 12/23/17 11:50 Page 2 of 2 ELVIN COWANLL Operative Report HISTORY AND PHYSICAL Observed: 12/23/2017 Status: F Source: [facility] EXAM 11:52 AM [facility] [place] [place] HISTORY & PHYSICAL NAME ACCOUNT SEX AGE ADMIT DISCHARGE PT MED. RECORD# NUMBER DATE DATE TYPE PORSHA COWAN [id number] F 57 12/17/17 2 [id number] ROOM: [facility] DATE OF : 58 DICTATING PHYSICIAN: Sonali Cabrera CHIEF COMPLAINT: Colon cancer screening. HISTORY OF PRESENT ILLNESS: Ms. Cowan is a 57-year-old female who presents for colon cancer screening. She denies any worrisome signs or symptoms. She denies any family history of colonic problems. She has never had a colonoscopy. PAST MEDICAL HISTORY: Obesity, hypertension, hypothyroidism, and right ovarian cyst. MEDICATIONS: See MAR. ALLERGIES: Penicillin. SOCIAL HISTORY: The patient is and denies tobacco, alcohol or illicit drug use. REVIEW OF SYSTEMS: Ten-system review of systems is negative. PHYSICAL EXAMINATION GENERAL APPEARANCE: She is alert, oriented, appropriate and in no acute distress. VITAL SIGNS: She is afebrile. Vital signs are stable, within normal limits. LUNGS: Clear to auscultation bilaterally. HEART: Regular rate and rhythm. ABDOMEN: Soft, nontender and nondistended. EXTREMITIES: No cyanosis or edema. NEUROLOGIC: GCS is 15. Cranial nerves II through XII are grossly intact. IMPRESSION: A 57-year-old female requiring colon cancer screening. PLAN: We will proceed to the endoscopy suite for colonoscopy. Dictated By: Sonali Cabrera MD Page 1 of 2 PORSHA COWAN History & Physical 12/17/17 08:22 JOB #: [id number] Transcribed By: blessing 12/17/17 09:44 Electronically signed by: E-SIGN DR. CABRERA 12/23/17 11:50 Update to H&P: [ ] No changes: I have examined the patient and reviewed the H&P and there are no changes. [ ] As previously dictated with the following changes: PHYSICIAN SIGNATURE: TIME: DATE: Page 2 of 2 PORSHA COWAN History & Physical CORRESPONDENCE ANALYST OFFICE VISIT Observed: 12/21/2017 Status: F Source: MICHAEL REPORT 6:53 AM [facility] [place] 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 Operator Required: No Accompanied by: Is patient in pain?: Yes Pain scale (1-10): 2 Allergies penicillin G Allergy (Mild, Verified 12/18/17 10:24) Other Medications aspirin 81 mg chewable tablet 81 mg PO QDAY 11/10/17 [History Confirmed 12/18/17] cinnamon bark 500 mg capsule mg PO 11/10/17 [History Confirmed 12/18/17] clobetasol 0.05 % topical ointment 1 applic TOPICAL QHS #30 g 11/10/17 [Rx Confirmed 12/18/17] halobetasol propionate 0.05 % topical cream 1 applic TOPICAL QDAY 11/10/17 [History Confirmed 12/18/17] levothyroxine 125 mcg tablet 125 mcg PO QDAY 11/10/17 [History Confirmed 12/18/17] multivitamin,cz-dmed-xmueveiv tablet 1 tab PO QDAY 11/10/17 [History Confirmed 12/18/17] valsartan 160 mg-hydrochlorothiazide 25 mg tablet 1 tab PO QDAY 11/10/17 [History Confirmed 12/18/17] fluoxetine 40 mg capsule 40 mg PO .every other day cap 12/18/17 [History Confirmed 12/18/17] Is last menstrual period known: No Patient : No : No PFSH PFSH Medical History Thyroid disorder (Acute) Surgical History History of ankle surgery (Acute) History of hernia repair (Acute) Family History Father Cancer lung-smoker Mother Diabetes Social History Smoking Status: Never smoker alcohol intake: current details: social substance use type: does not use caffeine: Yes what type of physical activity do you participate in: walking seatbelt use: always do you feel safe at home: Yes additional social history: Jacob- Both are retired Pregancy History 4 Elective abortions Hx Para 5 Spontaneous abortions Past Pregnancies Del. DateName GA/Weeks Outcome Route Bth WeighInfant GeLabor LgtAnesthesiDel LocatProvider FOB t n h a n Delivery Date: No notes to display Delivery Date: On 11/10/17 @ 11:11 Mary Mendiola TTTS around and shortly after Delivery Date: No notes to display Delivery Date: No notes to display HPI Colposcopy/pre op: Details: PORSHA COWAN is a 57 year old who presents for preoperative visit. she is still having intermittent bleeding and pelvic pain and pressure. she wants to have a hysterectomy in addition to the ovarian removal due to the bleeding. she had a normal CEA and CA125 Female Reproductive History Questions: Metorrhagia: Yes, Sexually active: Yes, Dyspareunia: No ROS Const Constitutional: Reports system reviewed and no additional complaints, except as docu; denies chills, fever(s), weight loss or weight gain GI GI: Reports as per HPI; denies vomiting, nausea, constipation, cramping, bloating or abdominal pain : Reports as per HPI; denies vaginal dryness, vaginal discharge, urinary urgency, urinary frequency or urinary incontinence Exam Const General: cooperative, healthy appearing, comfortable, well developed Orientation: alert [facility] Head: normal to inspection Neck Neck: normal visual inspection Thyroid: thyroid normal Resp Effort AND Inspection: normal respiratory effort GI Inspection: normal to inspection, distended Palpation: soft, no guarding, mass (large mass to 2 cm above umbilicus) Assessment AND Plan Problems 1. Post-menopausal bleeding N95.0 us, emb 2. Pelvic mass R19.00 ct abdomen pelvis ordered 3. Intramural leiomyoma of uterus D25.1 Plan plan TAHBSO. normal cea and ca125. will discuss case with supervisor laboratory onc due to pelvic mass. discussed surgical risks including risks of anesthesia, infection, bleeding, injury to bowel, bladder or blood vessels, and patient wishes to proceed with surgery. Coding Level of Care Code Off vis,est,level 4 Diagnoses Post-menopausal bleeding N95.0 Pelvic mass R19.00 Intramural leiomyoma of uterus D25.1 Uterine leiomyoma location: intramural 12/21/17 0653 <Electronically signed by Mary Mendiola MD> Date Mary Mendiola MD Cosigner Signature: Date (if applicable) CC: CARCINOEMBRYONIC ANTIGEN Collected: 12/04/2017 Status: F Source: IONE 4:53 PM REPOSITORY TYPE CODE TESTS RESULT OUT OF RANGE REFERENCE UNITS LAB L3100.2300 0.0-4.7 ng/mL Normal CEA 1.2 Result Comment: Alexander ECLIA methodology Nonsmokers <3.9 Smokers <5.6 Performed By: #### L3100.2300, L3100.5000 #### [facility] (refer to report for specific site) refer to report for address and phone number CANCER ANTIGEN 125 Collected: 12/04/2017 Status: F Source: IONE 4:53 PM REPOSITORY TYPE CODE TESTS RESULT OUT OF RANGE REFERENCE UNITS LAB L3100.5000 0.0-38.1 U/mL Normal CA125 33.3 2303 Result Comment: Alexander ECLIA methodology Performed at: - [facility] [address] [id number] Press Box Custodian: Robin Sales PhD, Phone: [phone] Performed By: #### L3100.2300, L3100.5000 #### [facility] (refer to report for specific site) refer to report for address and phone number ABDOMEN/PELVIS WITH Observed: 12/04/2017 Status: F Source: IONE CONTRAST 1:44 PM REPOSITORY [facility] Imaging Services [address] [place] [address] Abdomen/Pelvis WITH Contrast MR#: [id number] Acct: [id number] Name: PORSHA COWAN Rep #: [id number] : 1960 F 57 From: Deborah Amador MD PCP: Margot Gonzalez MD Status: REG CLI Study: Abdomen/Pelvis WITH Contrast Date of Exam: 12/04/17 Exam# [id number] Ordering Dr: Julia Agosto 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 INTRA-ABDOMINAL AND PELVIC SWELLING RADIATION DOSAGE (If Supplied By Facility): CTDIvol = ( 22.77 ) mGy, DLP = ( 2197.94 ) mGycm TECHNIQUE: Transaxial images were obtained from the dome of the diaphragm to the symphysis pubis without oral contrast. 100 ml of Isovue 300 contrast was administered. Sagittal and coronal images were reconstructed. Individualized dose optimization techniques were used for this CT. COMPARISON: None. FINDINGS: The visualized lung bases are unremarkable. The visualized portions of the heart are within normal limits. Normal liver. Normal gallbladder and extrahepatic biliary system. Normal spleen. There appears to be mild hypodensity of the inferior pancreatic head and uncinate process measuring 4.5 cm. See series 2 image 47. Normal bilateral adrenal glands. Normal right kidney. Normal left kidney. Normal visualized stomach. Normal small intestine. Normal colon. There is non-visualization of the appendix. There is mild atherosclerotic calcification of the abdominal aorta, without a demonstrated aneurysm. Normal inferior vena cava. There is a large cystic structure in the lower abdomen and pelvis measuring 23 x 18 x 12 cm. It measures slightly above simple fluid attenuation and is well-circumscribed and homogenous. It may arise from the right adnexa. Normal urinary bladder. Normal abdominal wall. There are diffuse degenerative changes of the visualized lumbar spine. CT/Abdomen/Pelvis WITH Contrast IMPRESSION: There is a large cystic structure in the abdomen and pelvis. It may arise from the right adnexa. There appears to be mild hypodensity of the pancreas. Electronically Signed: Deborah Amador MD at 14:35 EDT , Service support , CC: CHAYA Agosto; Margot Gonzalez MD Truck Driver Rubbish Collector: Signed SCREENING MAMM (CAD), Observed: 11/24/2017 Status: F Source: IONE BILAT 4:44 PM REPOSITORY [facility] Imaging Services [address] [place] [address] SCREENING MAMM (CAD), BILAT MR#: [id number] Acct: [id number] Name: PORSHA COWAN Rep #: [id number] : 1960 F 57 From: Stone Hernandez MD PCP: Margot Gonzalez MD Status: REG CLI Study: SCREENING MAMM (CAD), BILAT Date of Exam: 11/24/17 Exam# [id number] Ordering Dr: Mary Mendiola MD MAMMOGRAPHY - BILATERAL SCREENING 3-D ARUN SYNTHESIS REASON FOR EXAM: Female, 57 years old. Bilateral Screening 3-D tomosynthesis PERTINENT HISTORY: No significant family history. TECHNIQUE: 2-D mammograms and 3-D Arun synthesis of the breast (s) were performed. CAD was performed. COMPARISON: 2016 FINDINGS: The breast composition is almost entirely fat. Scattered benign calcifications are seen. No dense spiculated masses or suspicious microcalcifications are identified. No architectural distortion is identified. There is no skin thickening or retraction. There has been no significant change since the prior study. BI/SCREENING MAMM (CAD), BILAT IMPRESSION: No mammographic signs of malignancy. Routine yearly mammograms recommended. ASSESSMENT CATEGORY: BIRADS Category 1: Negative. A letter regarding these results will be sent to the patient by the facility within 30 days. FOLLOW UP RECOMMENDATION: Yearly follow up mammogram recommended. (A) Approximately 10% of breast cancers are not detected by mammography. A normal mammogram should not delay biopsy of a clinically suspicious abnormality. 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 of containers..01 ThinPrep Vial TYPE CODE TESTS RESULT OUT OF RANGE REFERENCE UNITS LAB L7400.0800 . Normal DIAGN Comment Result Comment: NEGATIVE FOR INTRAEPITHELIAL LESION AND MALIGNANCY. LAB L7400.0900 . Normal ADEQ Comment Result Comment: Satisfactory for evaluation. Endocervical and/or squamous metaplastic cells (endocervical component) are present. LAB L7400.1400 . Normal PERFORM Comment Result Comment: Carley Shannon, Instrument Person (ASCP) LAB L7400.2575 . Normal TEST METHOD Comment Result Comment: This liquid based ThinPrep(R) pap test was screened with the use of an image guided system. LAB L7400.2600 . Normal . COMM LAB L7400.2700 . Normal PAPSMR Comment Result Comment: The Pap smear is a screening test designed to aid in the detection of premalignant and malignant conditions of the uterine cervix. It is not a diagnostic procedure and should not be used as the sole means of detecting cervical cancer. Both false-positive and false-negative reports do occur. LAB L7400.2760 Negative High HPV APTIMA, HR Positive Result Comment: This test detects fourteen high-risk HPV types (16/18/31/33/35/39/45/ 51/52/56/58/59/66/68) without differentiation. Performed at: [address] [id number] Press Box Custodian: Brenda Lake MD, Phone: [phone] Performed at: =[address] [id number] Press Box Custodian: Brenda Lake MD, Phone: [phone] Performed By: #### L7400.0377 #### [facility] (refer to report for specific site) refer to report for address and phone number CORRESPONDENCE ANALYST OFFICE VISIT Observed: 11/10/2017 Status: F Source: [place]EL REPORT 11:39 AM [facility] 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 Required: No Is patient in pain?: No Allergies penicillin G Allergy (Mild, Verified 11/10/17 10:47) Other Medications aspirin 81 mg chewable tablet 81 mg PO QDAY 11/10/17 [History Confirmed 11/10/17] cinnamon bark 500 mg capsule mg PO 11/10/17 [History Confirmed 11/10/17] clobetasol 0.05 % topical ointment 1 applic TOPICAL QHS #30 g 11/10/17 [Rx Confirmed 11/10/17] fluoxetine 40 mg capsule 40 mg PO BID 11/10/17 [History Confirmed 11/10/17] halobetasol propionate 0.05 % topical cream 1 applic TOPICAL QDAY 11/10/17 [History Confirmed 11/10/17] levothyroxine 125 mcg tablet 125 mcg PO QDAY 11/10/17 [History Confirmed 11/10/17] multivitamin,in-kzfm-glnfjwqi tablet 1 tab PO QDAY 11/10/17 [History Confirmed 11/10/17] valsartan 160 mg-hydrochlorothiazide 25 mg tablet 1 tab PO QDAY 11/10/17 [History Confirmed 11/10/17] Is last menstrual period known: No Post menopausal: No Patient : No : No PFSH Medical History Thyroid disorder (Acute) Surgical History History of ankle surgery (Acute) History of hernia repair (Acute) Family History Father Cancer lung-smoker Mother Diabetes Social History Smoking Status: Never smoker alcohol intake: current details: social substance use type: does not use caffeine: Yes what type of physical activity do you participate in: walking seatbelt use: always do you feel safe at home: Yes additional social history: Jacob- Both are retired Pregancy History 4 Elective abortions Hx Para 5 Spontaneous abortions Past Pregnancies Del. DateName GA/Weeks Outcome Route Bth WeighInfant GeLabor LgtAnesthesiDel LocatProvider FOB t n h a n Delivery Date: No notes to display Delivery Date: On 11/10/17 @ 11:11 Mary Mendiola TTTS around and shortly after Delivery Date: No notes to display Delivery Date: No notes to display HPI Encounter for routine gynecological examination: Details: PORSHA COWAN is a 56 year old who presents for annual exam. she has had bleeding for the last 9 months intermittently. she also co severe vaginal itching. brief bedside ultrasound- 13 mm lining irregular herterogenous lining difficult to visualize oavries but large immeasurable ovarian mass seen Last PAP: 2013 History of abnormal PAP: Last mammogram: 2013 History of abnormal mammogram: no Colon cancer screening: due- discussed with pcp Other preventative health care screenings: dr margot gonzalez- Female Reproductive History Questions: Sexually active: No, Dyspareunia: Yes ROS Const Constitutional: Reports as per HPI; denies poor appetite, fatigue, increased appetite, weight gain or weight loss Cardio Card: Denies chest pain Resp Resp: Denies dyspnea or cough GI GI: Reports as per HPI; denies bloating, abdominal pain, constipation, vomiting or nausea : Reports as per HPI, vaginal itching, vaginal dryness, urinary incontinence and other; denies blood in urine, vaginal odor, vaginal discharge, urinary urgency, urinary frequency, pelvic pain, painful urination, difficulty urinating, prolapse symptoms or nipple discharge Skin Skin/Breast: Denies breast pain, breast skin changes, nipple discharge, breast lump or changing lesions Exam Const General: cooperative, healthy appearing, comfortable, no acute distress, well developed, well groomed HENMT Head: normal to inspection, normocephalic Ears: hearing grossly normal bilaterally, external ears normal Nose: external nose normal Face and sinus: normal facial exam Neck Neck: normal visual inspection, full ROM, no lymphadenopathy Thyroid: thyroid normal Chest Chest palpation AND inspection: normal inspection of the chest Breast inspection: normal inspection of the breasts, normal inspection of the axillae Breast palpation: normal palpation of the breasts, normal palpation of the axillae, no axillary lymphadenopathy Resp Effort AND Inspection: normal respiratory effort GI Inspection: normal to inspection, distended Palpation: no guarding, soft, no hepatosplenomegaly, mass (large 20 cm pelvic mass palpated) General: bladder normal to palpation External Female Exam: normal appearance of the urethra, external lesions (severe lichen sclerosus bilaterally with fissures, whitening) Urethra: normal appearance of the urethra, normal palpation Speculum Exam - Vagina: normal appearance of the vagina, normal vaginal discharge Speculum Exam - Cervix: normal appearance of the cervix, no cervical discharge, no lesions Bimanual Exam- Vagina AND Uterus: bladder normal to palpation, uterus enlarged, other (unable to ascertain due to body habitus, brief bedside us done see hpi) Skin General: no rashes or lesions noted Neuro General: alert, moves all extremities, no focal motor deficits Extrem General: no pedal edema, normal to inspection Psych Appearance: grossly normal Mental Status: mental status grossly normal Affect: normal affect Speech and Movement: speech and movement normal Attitude: cooperative Office Procedures Endometrial Biopsy Endometrial Biopsy Test: Yes Not Applicable Consent Signed: Yes Time out checklist: patient, procedure, site marked/identified, positioning of patient, supplies available, allergies confirmed, team agrees on procedure Time out time: 11:19 tenaculum used: Yes Details: Cervix prepped with betadine and pipelle inserted into uterus without complication. Specimen obtained and sent to lab for analysis. All instruments removed from vagina without complications. Excellent hemostasis noted. Assessment AND Plan Problems 1. Encounter for gynecological examination with abnormal finding Z01.411 2. Post-menopausal bleeding N95.0 us, emb 3. Screening for cervical cancer Z12.4 4. Screening for HPV (human papillomavirus) Z11.51 5. Encounter for screening mammogram for malignant neoplasm of breast Z12.31 6. Pelvic mass R19.00 ct abdomen pelvis ordered Plan Cervical cancer screening: pap hpv Breast cancer screening: mamm discussed PMB recommend US and EMB today other health maintenance examination reviewed and up to date/ordered. Encouraged maintenance of a healthy weight and active lifestyle and handout given. Calcium/vitamin D recommendations provided. Annual exam handout including recommendations for good health guidelines and basic screening information given. Problem list up to date, see problem list details for any additional plan information. Follow up in one year for annual health maintenance exam or sooner if needed. Orders Orders: Medications New: clobetasol 0.05% apply thin layer; massage gently into affected a1 applic Topical QHS yoshi Coding Level of Care Code Off vis,new,prev 40-64yrs Diagnoses Encounter for gynecological examination with abnormal finding Z01.411 Gynecological examination findings: abnormal findings PRESENT Post-menopausal bleeding N95.0 Screening for cervical cancer Z12.4 Screening for HPV (human papillomavirus) Z11.51 Encounter for screening mammogram for malignant neoplasm of breast Z12.31 Pelvic mass R19.00 Additional Codes Endometrial Biopsy (79466) 11/10/17 1139 <Electronically signed by Mary Mendiola MD> Date Mary Mendiola MD Cosigner Signature: Date (if applicable) CC: ENDOMETRIAL BX/CURETTINGS Observed: 11/10/2017 Status: F Source: MICHAEL 11:15 AM REPOSITORY Patient: PORSHA COWAN : 1960 (56/F) Acct Num: [id number] Phys: Mary Mendiola MD Unit Num: [id number] Loc: [facility] Specimen: [id number] Received: 11/10/177 Spec Type: ENDOM BX/C TISSUES TISSUES: Endometrium, NOS GROSS DESCRIPTION Received is one container labeled with the patient's name and not further designated. The specimen consists of multiple irregular fragments of garcia mucoid tissue that in aggregate measure 2.5 x 2 x 0.1 cm. The specimen is totally submitted in one cassette. / SJ:meaghan 11/11/17 TC:5 CPT: 26250 HEADER OPERATION: Endometrial biopsy PRE-OP DIAGNOSIS: Abnormal uterine bleeding TISSUE SUBMITTED: Endometrial lining MICROSCOPIC DESCRIPTION Slides are reviewed. MICROSCOPIC DIAGNOSIS Endometrial biopsy: Mildly disordered proliferative endometrium. SJ:meaghan 11/12/17 Signed Ambrose Velazquez 11/12/17 <signature on file> Performed By: #### PEMB #### [facility] [place], [address] CBC W/DIFF, AUTOMATED Collected: 10/20/2017 Status: F Source: IONE 8:31 AM REPOSITORY TYPE CODE TESTS RESULT OUT OF RANGE REFERENCE UNITS LAB L100.1000 4.4-11.0 K/mm3 Normal WBC 7.4 LAB L100.1200 4.2-5.4 M/mm3 Normal RBC 4.57 LAB L100.1300 12.0-15.0 g/dl Normal HGB 12.4 LAB L100.1400 37-47 % Normal HCT 39.5 LAB L100.1500 81-99 fL Normal MCV 86.4 LAB L100.1600 27.0-32.0 pg Normal MCH 27.1 LAB L100.1700 32-36 g/gl Low MCHC 31.4 LAB L100.1810 11.6-14.6 % High RDW CV 15.3 LAB L100.1820 35.1-43.9 fl High RDW SD 48.4 LAB L100.1900 150-450 K/mm3 Normal PLT 285 LAB L100.2000 6.2-12.0 fl Normal MPV 11.9 LAB L100.2100 47-70 % Normal NEUT% 58.9 LAB L100.2200 19-41 % Normal LY% 27.4 LAB L100.2300 0-10 % Normal MONO% 6.4 LAB L100.2400 0-5 % High EO% 6.1 LAB L100.2500 0-1 % High BASO% 1.1 LAB L100.2550 0.0-0.9 % Normal IM GRAN % 0.100 Result Comment: IG% - Immature Granulocytes (promyelocytes, myelocytes and metamyelocytes) > 1% indicates that a LEFT SHIFT is Present. LAB L100.2620 2.0-7.7 X10 3/uL Normal Absolute Neut 4.3 LAB L100.2720 0.83-4.51 X10 3/ul Normal Absolute Lymph 2.02 Performed By: #### L100.0100 #### [facility] [address] [place], [address] COMPREHENSIVE METABOLIC Collected: 10/20/2017 Status: F Source: MIC[place]EL CAGE 8:31 AM REPOSITORY TYPE CODE TESTS RESULT OUT OF RANGE REFERENCE UNITS LAB L501.0100 74-106 mg/dL Normal GLU 80 Result Comment: Please note revised GLUCOSE reference range effective 2017. LAB L501.1000 7-18 mg/dL Normal BUN 17 LAB L501.1100 0.55-1.02 mg/dL Normal CREAT,SERUM 0.90 Result Comment: The validity of the calculated GFR AND GFRAA in patients over 70 years has not been determined. Clinical correlation is essential. LAB L501.1110 >60 mL/min Normal EST GFR 69 Result Comment: Non- GFR Calc LAB L501.1115 >60 mL/min Normal EST GFR - AA 83 Result Comment: GFR Calc LAB L501.1300 10-20 RATIO Normal BUN/CRE 19.0 LAB L501.1500 6.4-8.2 g/dL T Normal PROT 7.8 LAB L501.1800 3.2-5.0 g/dL Normal ALB 3.6 LAB L501.1950 2.2-4.2 g/dL Normal GLOB 4.2 LAB L501.2000 0.9-2.4 RATIO Normal A/G 0.9 LAB L501.2200 8.5-10.1 mg/dL CA Normal 9.1 LAB L501.4100 15-37 U/L Normal AST 23 LAB L501.4305 45-117 U/L Normal ALK P 95 LAB L501.4405 13-56 U/L Normal ALT 29 LAB L501.4600 0.20-1.00 mg/dL T Normal BILI 0.50 LAB L501.5300 136-145 mmol/L NA Normal 140 LAB L501.5600 3.5-5.1 mmol/L K Normal 3.8 LAB L501.5900 98-107 mmol/L CL Normal 103 LAB L501.6100 21.0-32.0 mmol/L Normal CO2 30.0 LAB L501.6200 5-15 Normal GAP 7 Performed By: #### L500.4050, L500.4100, L501.9520 #### [facility] [address] [place], [address] LIPID PROFILE Collected: 10/20/2017 Status: F Source: MIC[place]EL 8:31 AM REPOSITORY TYPE CODE TESTS RESULT OUT OF RANGE REFERENCE UNITS LAB L501.4900 200 mg/dL Normal CHOL 189 Result Comment: <200 mg/dL Desirable 200-240 mg/dL Borderline >240 mg/dL High Risk LAB L501.5000 mg/dL Normal TRIG 107 Result Comment: The drugs N-Acetylcysteine and Metamizole may falsely depress this assay. Serum Triglycerides Reference Interval Normal <150 mg/dL Borderline high 150 - 199 mg/dL High 200 - 499 mg/dL Very High > or = 500 mg/dL LAB L501.6400 mg/dL Normal HDL 62 Result Comment: The drugs N-Acetylcysteine and Metamizole may falsely depress this assay. Reference Range HDL <40 mg/dL Low HDL Cholesterol HDL >or= 60 mg/dL High HDL Cholesterol LAB L501.6500 0-130 mg/dL Normal LDL 106 LAB L501.6600 5-40 mg/dL Normal VLDL 21 Performed By: #### L500.4050, L500.4100, L501.9520 #### [facility] [address] [place], [place], [id number] THYROID STIM HORMONE Collected: 10/20/2017 Status: F Source: MICHAEL (TSH) 8:31 AM REPOSITORY TYPE CODE TESTS RESULT OUT OF RANGE REFERENCE UNITS LAB L501.9520 0.358-3.74 uIU/mL Normal TSH 1.76 Performed By: #### L500.4050, L500.4100, L501.9520 #### [facility] [address] [place], [address] ALLERGIES ALLERGIES DATE TYPE / CODE NAME / CODE REACTION SEVERITY SOURCE 02/23/2018 Drug penicillin Other [place] Allergy/943242993(S G/[id number](RX [facility] NOMED CT) NORM) Hospital Repository 02/23/2018 Miscellaneous METAL Other Unknown [place] Allergy/395860051(S [facility] CT) Hospital Repository Drug PENICILLIN/0003 RASH Moderate Pietro Pomerene Allergy/583092464(S 9913(RXNORM) (Severity [facility] CT) Modifier) Hospital (Qualifier Repository Value) ENCOUNTERS ENCOUNTERS ADMIT/DISCHARGE ACCOUNT ADMITTING ENCOUNTER LOCATION SOURCE NUMBER CLASS 04/19/2018 [id number] Ambulatory [place] 0 [facility] ing: Repository 04/01/2018 [id number] Ambulatory BMSBuilding:W [place] 0 [facility] Repository 04/01/2018/ [id number] Ambulatory Herrin Mcihael 8 0 [facility] ing: Repository 03/24/2018 [id number] Ambulatory BMSBuilding:W [place] 3 [facility] Repository 03/18/2018 [id number] Ambulatory BMSBuilding:W [place] 3 [facility] Repository 03/11/2018 [id number] Ambulatory BMSBuilding:W [place] 2 [facility] Repository 03/04/2018 [id number] Ambulatory BMSBuilding:W [place] 1 [facility] Repository 02/25/2018/ [id number] Ambulatory [place] 8 3 [facility] ing: Repository 02/25/2018 [id number] Ambulatory BMSBuilding:W [place] 0 [facility] Repository 02/23/2018/ [id number] Ambulatory BMSBuilding:B [place] 8 0 [place] Repository 02/11/2018 [id number] Ambulatory BMSBuilding:W [place] 5 [facility] Repository 02/04/2018 [id number] Ambulatory BMSBuilding:W [place] 3 [facility] Repository 01/28/2018/ [id number] Ambulatory [place] Herrin 8 5 [facility] ing: Repository 01/28/2018/ [id number] Ambulatory BMSBuilding:W Herr[place] 8 8 [facility] Repository 01/27/2018/ [id number] Ambulatory BMSBuilding:B [place] 8 6 [place] Repository 01/13/2018/ [id number] [place], Inpatient [place] Herrin 8 6 Mary Encounter [facility] ing:HE8Dpof: Repository RL009Acl: 1 01/13/2018 [id number] Maury, Ambulatory BMSBuilding:B Herr[place] 7 Mary [place].CF.[facility] Repository 01/13/2018 [id number] Miguelbrendonrosette, Ambulatory BMSBuilding:B [place] 0 Mary MS.CF.[facility] Repository 01/06/2018 [id number] Ambulatory BMSBuilding:W [place] 1 [facility] Repository 12/18/2017/ [id number] Ambulatory BMSBuilding:B [place] 8 8 [place].[facility] Repository 12/17/2017/ [id number] [facility], Ambulatory Build[address] [place] [address] 8 SONALI bishopom: [address] Repository 12/04/2017 [id number] Ambulatory [place] 2 [facility] ing:CT Repository 11/24/2017 [id number] Ambulatory [place] 6 [facility] ing:OPBI Repository 11/10/2017 [id number] Ambulatory [place] Herrin 1 [facility] ing:[facility] Repository 11/10/2017/ [id number] Ambulatory BMSBuilding:B [place] 8 9 MS.[facility] Repository 10/20/2017 [id number] Ambulatory Herrin Herrin 7 [facility] ing:LAB.FUTUR Repository E PAYERS PAYERS ENCOUNTER GUARANTOR PAYER SUBSCRIBER SOURCE 04/19/2018 JACOB Villarreal Primary JACOB Rodriguez [id number] S Insurance:MEDICAL EDINGTONDOB: [facility] 9190-38-91[place] Number: Repository [address]Uyi: ([phone] [id number] [phone] () Date:4596-66-39[place] [address] [place] [address]YC: 04/19/2018 Secondary NOT GIVENUNK Herrin Insurance:SELF PAY [facility] Number: Effective Repository Date:2018-04-03 04/01/2018 JACOB Villarreal Primary JACOB Rodriguez [id number] S Insurance:MEDICAL EDINGTONDOB: [facility] 3023-90-16[place]FM[place] Number: Repository [address]Mgi: 330 [id number] [phone] () Date:9438-59-45LO[address] [address]XT: 04/01/2018 Secondary NOT GIVENUNK Herrin Insurance:SELF PAY [facility] Number: Effective Repository Date:2018-04-01 04/01/2018 JACOB Villarreal Primary JACOB Rodriguez [id number] S Insurance:MEDICAL EDINGTONDOB: [facility] 3690-45-05[place]FM[place] Number: Repository [address]Uki: 330 [id number] [phone] (HP) Date:4429-91-36WV[address] [address]OC: 04/01/2018 Secondary NOT GIVENUNK Michael Insurance:SELF PAY [facility] Number: Effective Repository Date:2018-03-04 03/24/2018 JAOCB Villarreal Primary JACOB Rodriguez [id number] S Insurance:MEDICAL EDINGTONDOB: [facility] 2446-25-41FU[place] Number: Repository [address]Dus: 330 [id number] [phone] () Date:2777-89-01BJ[address] [address]UT: 03/24/2018 Secondary NOT GIVENUNK Michael Insurance:SELF PAY [facility] Number: Effective Repository Date:2018-03-24 03/18/2018 JACOB Villarreal Primary JACOB Rodriguez [id number] S Insurance:MEDICAL EDINGTONDOB: [facility] 3803-62-13QDYMead[place] Number: Repository [address]Piv: ([phone] [id number] [phone] (HP) Date:3134-35-10KN [address] [address]NU: 03/18/2018 Secondary NOT GIVENUNK Herrin Insurance:SELF PAY [facility] Number: Effective Repository Date:2018-03-18 03/11/2018 JACOB Villarreal Primary JACOB Villarreal Michael [id number] S Insurance:MEDICAL EDINGTONDOB: [facility] 3459-07-72QJVM[place] Number: Repository [address]Xjl: 330 [id number] [phone] (HP) Date:3610-23-32DP [address] [address]LT: 03/11/2018 Secondary NOT GIVENUNK Michael Insurance:SELF PAY [facility] Number: Effective Repository Date:2018-03-11 03/04/2018 JACOB Villarreal Primary JACOB Villarreal Michael [id number] S Insurance:MEDICAL EDINGTONDOB: [facility] [id number] Number: Repository [address]Hlo: 330 [id number] [phone] (HP) Date:4099-51-03MB[address] [address]MV: 03/04/2018 Secondary NOT GIVENUNK Michael Insurance:SELF PAY [facility] Number: Effective Repository Date:2018-03-04 02/25/2018 JACOB Villarreal Primary JACOB Villarreal Michael [id number] S Insurance:MEDICAL EDINGTONDOB: [facility] 6877-28-37WXGM[place] Number: Repository [address]Jet: 330 [id number] [phone] (HP) Date:2305-31-49HT[address] [address]NE: 02/25/2018 Secondary NOT GIVENUNK Herrin Insurance:SELF PAY [facility] Number: Effective Repository Date:2018-02-01 02/25/2018 JACBO Villarreal Primary JACOB Rodriguez [id number] S Insurance:MEDICAL EDINGTONDOB: [facility] [id number] Number: Repository [address]Uxe: 330 [id number] [phone] (HP) Date:2199-12-08IW [address] [address]VY: 02/25/2018 Secondary NOT GIVENUNK Michael Insurance:SELF PAY [facility] Number: Effective Repository Date:2018-02-25 02/23/2018 Jacob Villarreal Primary JACOB Rodriguez [id number] S Insurance:MEDICAL EDINGTONDOB: [address] Number: Repository [address]Qzu: 330 [id number] [phone] (HP) Date:1863-79-62AM [address] [address]BW: 02/23/2018 Secondary NOT GIVENUNK Herrin Insurance:SELF PAY [facility] Number: Effective Repository Date:2018-02-23 02/11/2018 Jacob Villarreal Primary JACOB Rodriguez [id number] S Insurance:MEDICAL EDINGTONDOB: [facility] [id number] Number: Repository [address]Aek: 330 [id number] [phone] (HP) Date:7450-75-14DM [address] [address]QK: 02/11/2018 Secondary NOT GIVENUNK Michael Insurance:SELF PAY [facility] Number: Effective Repository Date:2018-02-11 02/04/2018 Jacob Villarreal Primary JACOB Rodriguez [id number] S Insurance:MEDICAL EDINGTONDOB: [address] Number: Repository [address]Ext: 330 [id number] [phone] (HP) Date:4408-41-76BJ [address] [address]OZ: 02/04/2018 Secondary NOT GIVENUNK Michael Insurance:SELF PAY [facility] Number: Effective Repository Date:2018-02-04 01/28/2018 Jacob Villarreal Primary JACOB Rodriguez [id number] S Insurance:MEDICAL EDINGTONDOB: [facility] 7357-54-25QZOM[place] Number: Repository [address]Juw: 330 [id number] [phone] (HP) Date:0246-85-46IN [address] [address]BR: 01/28/2018 Secondary NOT GIVENUNK Michael Insurance:SELF PAY [facility] Number: Effective Repository Date:2018-01-27 01/28/2018 Jacob Villarreal Primary JACOB Rodriguez [id number] S Insurance:MEDICAL EDINGTONDOB: [facility] 4183-06-39HHZM[place], [place] Number: Repository [address]Ouj: 330 [id number] [phone] () Date:2149-99-06CJ[address] [address]GC: 01/28/2018 Secondary NOT GIVENUNK Herrin Insurance:SELF PAY [facility] Number: Effective Repository Date:2018-01-28 01/27/2018 Jacob Villarreal Primary JACOB Rodriguez [id number] S Insurance:MEDICAL EDINGTONDOB: [facility] 8014-60-41EJHM[place], [place] Number: Repository [address]Znv: 330 [id number] [phone] (HP) Date:1867-61-11PE [address] [address]UU: 01/27/2018 Secondary NOT GIVENUNK Herrin Insurance:SELF PAY [facility] Number: Effective Repository Date:2018-01-27 01/13/2018 Jacob Villarreal Primary JACOB Rodriguez [id number] S Insurance:MEDICAL EDINGTONDOB: [address] Number: Repository [address]Afg: 330 [id number] [phone] (HP) Date:3862-24-59OC [address] [place] [address]EW: 01/13/2018 Secondary NOT GIVENUNK Michael Insurance:SELF PAY [facility] Number: Effective Repository Date:2017-12-09 01/13/2018 Jacob Villarreal Primary JACOB Villarreal Michael [id number] S Insurance:MEDICAL EDINGTONDOB: [address] [place] Number: Repository [address]Lud: 330 [id number] [phone] (HP) Date:8646-15-96FL [address] [address]BQ: 01/13/2018 Secondary NOT GIVENUNK Michael Insurance:SELF PAY [facility] Number: Effective Repository Date:2018-01-13 01/13/2018 Jacob Villarreal Primary JACOB Villarreal Michael [id number] S Insurance:MEDICAL EDINGTONDOB: [address] Number: Repository [address]Eby: 330 [id number] [phone] (HP) Date:0412-56-48DN[address] [address]VF: 01/13/2018 Secondary NOT GIVENUNK Michael Insurance:SELF PAY [facility] Number: Effective Repository Date:2018-01-13 01/06/2018 Jacob Villarreal Primary JACOB Villarreal Michael [id number] S Insurance:MEDICAL EDINGTONDOB: [address] Number: Repository [address]Mgz: 330 [id number] [phone] (HP) Date:0087-67-76WR [address] [address]GW: 01/06/2018 Secondary NOT GIVENUNK Herrin Insurance:SELF PAY [facility] Number: Effective Repository Date:2018-01-06 12/18/2017 Jacob Villarreal Primary JACOB oRdriguez [id number] S Insurance:MEDICAL EDINGTONDOB: [facility] 8466-45-95UXQM[place] Number: Repository [address]Gfx: 330 [id number] [phone] (HP) Date:4652-85-29UU [address] [address]AV: 12/18/2017 Secondary NOT GIVENUNK Michael Insurance:SELF PAY [facility] Number: Effective Repository Date:2017-12-09 12/17/2017 PORSHA Costa JACOB Marquez EDINGTONDOB: Insurance:MEDICAL EDINGTONDOB: [facility] [id number] [facility] Repository [place], [place] Number: [place], [place] [address]Flw: 330 [id number] [phone] (HP) Date:Plan Name: 12/04/2017 Jacob Villarreal Primary JACOB Rodriguez [id number] S Insurance:MEDICAL EDINGTONDOB: [facility] 5075-54-46LETM[place] Number: Repository [address]Jkt: 330 [id number] [phone] (HP) Date:5041-84-15HO[address] [address]NQ: 12/04/2017 Secondary NOT GIVENUNK Michael Insurance:SELF PAY [facility] Number: Effective Repository Date:2017-11-23 11/24/2017 Jacob Villarreal Primary JACOB Rodriguez [id number] S Insurance:MEDICAL EDINGTONDOB: [facility] 4533-44-01VDVM[place], [place] Number: Repository [address]Mna: 330 [id number] [phone] (HP) Date:6098-52-06ZS[address] [address]ZE: 11/24/2017 Secondary NOT GIVENUNK Michael Insurance:SELF PAY [facility]: Effective Rep[facility] Date:2017-11-11 11/10/2017 Jacob Villarreal Primary JACOB Rordiguez [id number] S Insurance:MEDICAL EDINGTONDOB: [facility] 9261-86-68[place]OM[place] Number: Repository [address]Fhk: 330 [id number] [phone] (HP) Date:0535-08-75HZ [address] [place] [address]FZ: 11/10/2017 Secondary NOT GIVENUNK Herrin Insurance:SELF PAY [facility] Number: Effective Repository Date:2017-11-10 11/10/2017 Jacob Villarreal Primary JACOB Rodriguez [id number] S Insurance:MEDICAL EDINGTONDOB: [facility] [id number] Number: Repository [address]Qen: 330 [id number] [phone] (HP) Date:8887-04-68ON [address] [place] [address]XY: 11/10/2017 Secondary NOT GIVENUNK Michael Insurance:SELF PAY [facility] Number: Effective Repository Date:2017-11-10 10/20/2017 Jacob Villarreal Primary JACOB Rodriguez [id number] S Insurance:MEDICAL EDINGTONDOB: [facility] 7175-47-26[place]RT[place] Number: Repository [address]Xsj: 330 [id number] [phone] (HP) Date:4227-13-35KZ [address] [place] [address]QP: 10/20/2017 Secondary NOT GIVENUNK Herrin Insurance:SELF PAY [facility] Number: Effective Repository Date:2017-09-22
== END 2018-05-03 23:59 ==
LOC: WC 09:00
PROVIDERS: Family Provider Family Medicine; PCP Family Medicine; Referring Provider Internal Medicine; Visit Provider Internal Medicine
DX: T81.89XA Other complications of procedures, not elsewhere classified, initial encounter (principal); Y83.8 Other surgical procedures as the cause of abnormal reaction of the patient, or of later complication, without mention of misadventure at the time of the procedure; L30.4 Erythema intertrigo; L98.492 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ulcer of skin of other sites with fat layer exposed
CPT/HCPCS: 11042; 97607; 99212; 99213; G0463

== ENCOUNTER 2018-05-13 08:17 | Outpatient (RCR) | payer OTHER, SELFPAY ==
[2018-05-04 01:01] VITALS: BP 152/78; PULSE 94; RESP 18; TEMP 36.4
[2018-05-13 08:54] VITALS: BP 134/72; PULSE 82; RESP 18; TEMP 36.3
--- NOTE | 2018-05-13 09:58 | PN.PCM_ITS ---
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 History of Wound: Ms. Cowan is a 57 year old who was referred to the wound center due to non healing surgical wound and periwound ulceration. She had a hysterectomy about 2 weeks ago which was said to be uneventful however, she had a 2 week follow up yesterday and was noted to have worsening abdominal ulcerations around the wound site. She denies any known precipitating factor. She also reports feeling well otherwise. Progress of Wound: Healed. - Physical Exam Vital Signs Temp Pulse Resp BP 97.4 F L 82 18 134/72 H 05/13/18 08:54 05/13/18 08:54 05/13/18 08:54 05/13/18 08:54 General: Alert, Oriented x3, Cooperative, No apparent distress HEENT: Atraumatic, Normocephalic Oral: Moist Mucosa Neck: Supple Lungs: Normal air movement Abdomen: Soft, Non Tender, Obese Extremities: No cyanosis Wound Measurements and Assessment WC - Nurse 1 - General Ulcer Measurement Start: 05/13/18 08:54 Freq: Status: Active Protocol: Activity Type Activity Date Activity User E-Sign Co-Sign Detail Recorded Client Recorded Date Recorded By Document 05/13/18 08:54 DL [id number] 05/13/18 08:59 DL 05/13/18 08:54 Wound Center Nurse 1 [Ulcer Assessment] 1. lower mid abd cluster -Current Size (cm) - Length 0 -Current Size (cm) - Width 0 -Current Size (cm) - Depth 0 -Total Square Cm 0 -Photo Taken Yes -Exudate Amt None Present -Wound Margin Flat & Intact -Granulation Amt Large (67-100%) -Granulation Quality [place] -Necrosis Amt None Present (0 %) -Structure Exposed N/A -Texture (Dianne-wound Skin Appearance) Scarring -Moisture (Dianne-wound Skin Appearance No Abnormality ) -Color (Dianne-wound Skin Appearance) No Abnormality -Temperature (Dianne-wound Skin No Abnormality Appearance) (Pt Warm) -Tenderness on Palpation (Dianne-wound No Skin Appearance) -Ulcer Cleansing Rinsed/ Irrigated with Saline -Foul Odor after Cleansing No WC - Nurse 2 - General Ulcer CM Notes Start: 05/13/18 08:54 Freq: Status: Active Protocol: Activity Type Activity Date Activity User E-Sign Co-Sign Detail Recorded Client Recorded Date Recorded By Document 05/13/18 09:19 MW [id number] 05/13/18 09:20 MW 05/13/18 09:19 Wound Center Nurse 2 [Procedure/Treatment] -Time 09:19 -Correct Patient Yes -Correct Side, Site, Position Yes -Correct Procedure Yes -Procedure Performed No -Post Debridement Size (cm) - Length 0 -Post Debridement Size (cm) - Width 0 -Post Debridement Size (cm) - Depth 0 -Total Square Cm 0 -Wound/Ulcer Outcome Healed- Epithelialized [See Physician Procedure note for Specifics] Pain Scale: 0-10 Numeric [Pain] -Is Patient Pain Free? Yes Musculoskeletal: No Muscle Wasting Neurological: Cranial nerves II-XII grossly intact Psych/Mental Status: Normal Affect Debridement Note Post-Debridement Measurements/Treatment WC - Nurse 2 - General Ulcer CM Notes Start: 05/13/18 08:54 Freq: Status: Active Protocol: Activity Type Activity Date Activity User E-Sign Co-Sign Detail Recorded Client Recorded Date Recorded By Document 05/13/18 09:19 MW [id number] 05/13/18 09:20 MW 05/13/18 09:19 Wound Center Nurse 2 1. lower mid abd cluster -Time 09:19 -Correct Patient Yes -Correct Side, Site, Position Yes -Correct Procedure Yes -Procedure Performed No -Post Debridement Size (cm) - Length 0 -Post Debridement Size (cm) - Width 0 -Post Debridement Size (cm) - Depth 0 -Total Square Cm 0 -Wound/Ulcer Outcome Healed- Epithelialized Pain Scale: 0-10 Numeric Is Patient Pain Free? Yes No debridement was completed today Assessment/Plan Assessment: Non healing surgical wound. Dianne wound ulceration. Intertriginous Dermatitis. Plan: Healed. Continue Adaptic over top for 2 weeks. Continue Miconazole powder in the abdominal fold. 100% cotton underwear advised and loose fitting clothing also recommended. Discharged from the wound center. All her question were answered and she was advised to call with any questions or concerns. This note was generated with [employer] software. It may contain incorrect words, spelling, and punctuation that were not noted in checking the note before signing.
== END 2018-06-03 23:59 ==
LOC: WC 08:17
PROVIDERS: Family Provider Family Medicine; PCP Family Medicine; Referring Provider Internal Medicine; Visit Provider Internal Medicine
DX: Z09 Encounter for follow-up examination after completed treatment for conditions other than malignant neoplasm (principal); L30.4 Erythema intertrigo
CPT/HCPCS: 99212; G0463

== ENCOUNTER → 2018-11-16 | Outpatient (CLI) | payer OTHER, SELFPAY ==
[2018-11-16 12:27] LABS: Absolute Lymphocyte Count 2.01 X10^3/uL (0.83-4.51); Absolute Neutrophil Count 4.3 X10^3/uL (2.0-7.7); Basophil# 0.12 X10^3/uL; Basophil% 1.5 % (0-1); Eosinophil# 0.71 X10^3/uL; Eosinophils% 9.1 % (0-5); Hematocrit 37.9 % (37-47); Hemoglobin 11.8 g/dL (12.0-15.0); Lymphocyte # 2.01 X10^3/ul (4.0); Lymphocyte % 25.9 % (19-41); Mean Corp Hgb Conc 31.1 g/dL (32-36); Mean Corpuscular Hgb 26.9 pg (27.0-32.0); Mean Corpuscular Volume 86.3 fL (81-99); Mean Platelet Vol. 12.4 fl (6.2-12.0); Monocyte# 0.56 X10^3/uL; Monocyte% 7.2 % (0-10); Neutrophil # 4.34 X10^3/uL (2.7-7.7); Neutrophil % 55.9 % (47-70); Platelet Count 271 K/mm3 (150-450); RBC Distribution Width CV 15.9 % (11.6-14.6); RBC Distribution Width SD 49.7 fl (35.1-43.9); Red Blood Count 4.39 M/mm3 (4.2-5.4); White Blood Count 7.8 K/mm3 (4.4-11.0)
[2018-11-16 13:14] LABS: ALB/GLOB Ratio 0.9 RATIO (0.9-2.4); AST(SGOT) 22 U/L (15-37); Alanine Aminotransfer ALT/SGPT 26 U/L (13-56); Albumin, Serum 3.5 g/dL (3.2-5.0); Alkaline Phosphatase 104 U/L (45-117); Anion Gap 6 (5-15); BUN 12 mg/dL (7-18); BUN/Creat Ratio 13.7 RATIO (10-20); Calcium,Total 9.2 mg/dL (8.5-10.1); Chloride 103 mmol/L (98-107); Cholesterol 195 mg/dL (200); Creatinine, Serum 0.88 mg/dL (0.55-1.02); EST Glomerular Filtration Rate 70 mL/min (>60); Est Glom Filt Rate - Afr Amer 85 mL/min (>60); Globulin 3.8 g/dL (2.2-4.2); Glucose 80 mg/dL (74-106); High Density Lipoprotein 51 mg/dL; Potassium 3.4 mmol/L (3.5-5.1); Protein, Total 7.3 g/dL (6.4-8.2); Sodium Level 137 mmol/L (136-145); Thyroid Stim Hormone (TSH) 1.81 uIU/mL (0.358-3.74); Triglycerides 165 mg/dL; Very Low Density Lipoprotein 33 mg/dL (5-40)
== END | disposition home or self-care (01) ==
PROVIDERS: Family Provider Family Medicine; PCP Family Medicine; Visit Provider Family Medicine
DX: E03.9 Hypothyroidism, unspecified (principal); I10 Essential (primary) hypertension; F32.9 Major depressive disorder, single episode, unspecified
CPT/HCPCS: 36415; 80053; 80061; 84443; 85025

== ENCOUNTER → 2019-11-07 | Outpatient (CLI) | payer OTHER, SELFPAY ==
[2019-11-07 12:39] LABS: Absolute Lymphocyte Count 2.15 X10^3/uL (0.83-4.51); Absolute Neutrophil Count 5.4 X10^3/uL (2.0-7.7); Basophil# 0.09 X10^3/uL; Eosinophil# 0.53 X10^3/uL; Hematocrit 38.7 % (37-47); Hemoglobin 11.9 g/dL (12.0-15.0); Lymphocyte # 2.15 X10^3/ul (4.0); Lymphocyte % 24.4 % (19-41); Mean Corp Hgb Conc 30.7 g/dL (32-36); Mean Corpuscular Hgb 27.5 pg (27.0-32.0); Mean Corpuscular Volume 89.4 fL (81-99); Mean Platelet Vol. 12.1 fl (6.2-12.0); Monocyte# 0.61 X10^3/uL; Monocyte% 6.9 % (0-10); NRBC Flagged by Analyzer 0 % (0-5); Neutrophil # 5.39 X10^3/uL (2.7-7.7); Neutrophil % 61.1 % (47-70); Platelet Count 291 K/mm3 (150-450); RBC Distribution Width CV 15.6 % (11.6-14.6); RBC Distribution Width SD 50.4 fl (35.1-43.9); Red Blood Count 4.33 M/mm3 (4.2-5.4); White Blood Count 8.8 K/mm3 (4.4-11.0)
[2019-11-07 13:39] LABS: ALB/GLOB Ratio 0.8 RATIO (0.9-2.4); AST(SGOT) 27 U/L (15-37); Alanine Aminotransfer ALT/SGPT 30 U/L (13-56); Albumin, Serum 3.4 g/dL (3.2-5.0); Alkaline Phosphatase 95 U/L (45-117); Anion Gap 6 (5-15); BUN 14 mg/dL (7-18); BUN/Creat Ratio 17.6 RATIO (10-20); Chloride 101 mmol/L (98-107); Cholesterol 186 mg/dL (200); Creatinine, Serum 0.79 mg/dL (0.55-1.02); EST Glomerular Filtration Rate 79 mL/min (>60); Est Glom Filt Rate - Afr Amer 95 mL/min (>60); Glucose 84 mg/dL (74-106); High Density Lipoprotein 59 mg/dL; Potassium 3.9 mmol/L (3.5-5.1); Protein, Total 7.4 g/dL (6.4-8.2); Sodium Level 138 mmol/L (136-145); Thyroid Stim Hormone (TSH) 2.68 uIU/mL (0.358-3.74); Triglycerides 130 mg/dL; Very Low Density Lipoprotein 26 mg/dL (5-40)
== END | disposition home or self-care (01) ==
LOC: BFHLAB 08:37
PROVIDERS: PCP Family Medicine; Visit Provider Family Medicine
DX: E03.9 Hypothyroidism, unspecified (principal); I10 Essential (primary) hypertension; F32.9 Major depressive disorder, single episode, unspecified
CPT/HCPCS: 36415; 80053; 80061; 84443; 85025

== ENCOUNTER → 2019-11-28 | Outpatient (CLI) | payer OTHER, SELFPAY ==
--- NOTE | 2019-11-28 15:38 | BI_ITS ---
MAMMOGRAPHY - BILATERAL SCREENING REASON FOR EXAM: Female, 59 years old. Routine annual screening examination. PERTINENT HISTORY: Non-contributory. TECHNIQUE: Digital bilateral breast cruz (3D mammographic acquisition) in the CC and MLO projections. 2-D mediolateral oblique (MLO) and craniocaudad (CC) views of both breasts were obtained. CAD: Full Field Digital Mammography with Computer Added Detection was performed. COMPARISON: Comparison is made with prior study dated 11-24-17. FINDINGS: Breast Composition: The breasts are almost entirely fatty. There are no dominant masses or suspicious calcifications. Stable benign-appearing bilateral axillary lymph nodes. No other significant abnormalities are identified. There has been no significant change since the prior study. BI/SCREEN MAMM (CAD) W/CRUZ BILAT IMPRESSION: Stable bilateral screening mammogram. Yearly follow-up mammogram recommended. (A) ASSESSMENT CATEGORY: BIRADS Category 2: Benign. A letter regarding these results will be sent to the patient by the facility within 30 days. Approximately 10% of breast cancers are not detected by mammography. A normal mammogram should not delay biopsy of a clinically suspicious abnormality. [id number] Electronically Signed: Yehuda Chino, at 8:20 EDT , Service support ,
== END | disposition home or self-care (01) ==
LOC: OPBI 15:37
PROVIDERS: PCP Family Medicine; Referring Provider Family Medicine; Visit Provider Family Medicine
DX: Z12.31 Encounter for screening mammogram for malignant neoplasm of breast (principal)
CPT/HCPCS: 77063; 77067

== ENCOUNTER → 2020-11-14 06:14 | Outpatient (CLI) | payer OTHER, SELFPAY ==
[2020-11-14 08:23] LABS: ALB/GLOB Ratio 0.9 RATIO (0.9-2.4); AST(SGOT) 20 U/L (15-37); Alanine Aminotransfer ALT/SGPT 28 U/L (13-56); Albumin, Serum 3.6 g/dL (3.2-5.0); Alkaline Phosphatase 101 U/L (45-117); Anion Gap 4 (5-15); BUN 17 mg/dL (7-18); Calcium,Total 9.6 mg/dL (8.5-10.1); Chloride 103 mmol/L (98-107); Cholesterol 190 mg/dL (200); Creatinine, Serum 0.85 mg/dL (0.55-1.02); EST Glomerular Filtration Rate 72 mL/min (>60); Est Glom Filt Rate - Afr Amer 87 mL/min (>60); Glucose 88 mg/dL (74-106); High Density Lipoprotein 61 mg/dL; Potassium 3.5 mmol/L (3.5-5.1); Protein, Total 7.6 g/dL (6.4-8.2); Sodium Level 137 mmol/L (136-145); Thyroid Stim Hormone (TSH) 1.27 uIU/mL (0.358-3.74); Triglycerides 111 mg/dL; Very Low Density Lipoprotein 22 mg/dL (5-40)
== END ==
PROVIDERS: PCP Family Medicine; Referring Provider Family Medicine; Visit Provider Family Medicine
DX: I10 Essential (primary) hypertension (principal); E03.9 Hypothyroidism, unspecified; F32.9 Major depressive disorder, single episode, unspecified
CPT/HCPCS: 36415; 80053; 80061; 84443

== ENCOUNTER → 2020-11-29 14:56 | Outpatient (CLI) | payer OTHER, SELFPAY ==
--- NOTE | 2020-11-29 14:59 | BI_ITS ---
MAMMOGRAPHY - BILATERAL SCREENING 3-D TOMOSYNTHESIS REASON FOR EXAM: Female, 60 years old. Routine screening PERTINENT HISTORY: No significant family history. TECHNIQUE: 2-D mammograms and 3-D Tomosynthesis of the breast (s) were performed. CAD was performed. COMPARISON: 11/28/2019 FINDINGS: The breast composition is almost entirely fat. Scattered benign calcifications are seen. No dense spiculated masses or suspicious microcalcifications are identified. No architectural distortion is identified. There is no skin thickening or retraction. There has been no significant change since the prior study. BI/SCRN MAMM (CAD)W/CRUZ BILAT IMPRESSION: No mammographic signs of malignancy. Routine yearly mammograms recommended. ASSESSMENT CATEGORY: BIRADS Category 1: Negative. A letter regarding these results will be sent to the patient by the facility within 30 days. FOLLOW UP RECOMMENDATION: Yearly follow up mammogram recommended. (A) Approximately 10% of breast cancers are not detected by mammography. A normal mammogram should not delay biopsy of a clinically suspicious abnormality. Electronically Signed: Luis Hernandez MD at 8:55 EDT , Service support ,
== END ==
PROVIDERS: PCP Family Medicine; Referring Provider Family Medicine; Visit Provider Family Medicine
DX: Z12.31 Encounter for screening mammogram for malignant neoplasm of breast (principal)
CPT/HCPCS: 77063; 77067

== ENCOUNTER 2021-05-23 17:56 | Outpatient (CLI) | payer OTHER, SELFPAY | END 2021-05-23 23:59 | disposition short-term general hospital (02) | PROVIDERS: PCP Family Medicine; Visit Provider Family Medicine | DX: U07.1 COVID-19 (principal) | CPT/HCPCS: 87635; U0003; U0005 ==

== ENCOUNTER 2021-05-31 11:15 | Outpatient (CLI) | payer OTHER, SELFPAY ==
--- NOTE | 2021-05-31 11:22 | RAD_ITS ---
STUDY: XR Chest 2 Views 05/31/2021 11:29 AM REASON FOR EXAM: Female, 60 years old. CHEST PAIN COUGH COMPARISON: None TECHNIQUE: XR Chest 2 Views FINDINGS: There is no demonstrated pleural abnormality. There is bilateral infiltrate / atelectasis. Normal heart size. Normal mediastinum. Normal shanelle. Prominent appearing increased interstitial lung markings. Normal visualized pulmonary arteries. There is atherosclerotic calcification of the aortic arch with tortuosity. There are diffuse degenerative changes of the visualized thoracic spine. There is degenerative osteoarthritis of the bilateral shoulders. There is no demonstrated abnormality of the visualized soft tissue structures of the upper abdomen. RAD/Chest PA and Lateral IMPRESSION: Bilateral pneumonia. Electronically Signed: Dk Champagne MD at 15:36 EST ,
== END 2021-05-31 23:59 | disposition short-term general hospital (02) ==
PROVIDERS: PCP Family Medicine; Referring Provider Family Medicine; Visit Provider Family Medicine
DX: R05.9 Cough, unspecified (principal)
CPT/HCPCS: 71046

== ENCOUNTER → 2021-11-13 | Outpatient (CLI) | payer OTHER, SELFPAY ==
[2021-11-13 08:30] LABS: Absolute Lymphocyte Count 2.33 X10^3/uL (0.83-4.51); Absolute Neutrophil Count 6.3 X10^3/uL (2.0-7.7); Basophil# 0.11 X10^3/uL; Basophil% 1.1 % (0-1); Eosinophil# 0.41 X10^3/uL; Eosinophils% 4.1 % (0-5); Hematocrit 42.3 % (37-47); Hemoglobin 13.4 g/dL (12.0-15.0); Lymphocyte # 2.33 X10^3/ul (0.83-4.51); Lymphocyte % 23.5 % (19-41); Mean Corp Hgb Conc 31.7 g/dL (32-36); Mean Corpuscular Hgb 27.5 pg (27.0-32.0); Mean Corpuscular Volume 86.7 fL (81-99); Mean Platelet Vol. 11.7 fl (6.2-12.0); Monocyte# 0.63 X10^3/uL; Monocyte% 6.4 % (0-10); NRBC Flagged by Analyzer 0 % (0-5); Neutrophil # 6.34 X10^3/uL (2.7-7.7); Platelet Count 269 K/mm3 (150-450); RBC Distribution Width CV 15.4 % (11.6-14.6); RBC Distribution Width SD 48.5 fl (35.1-43.9); Red Blood Count 4.88 M/mm3 (4.2-5.4); White Blood Count 9.9 K/mm3 (4.4-11.0)
[2021-11-13 09:06] LABS: ALB/GLOB Ratio 0.9 RATIO (0.9-2.4); AST(SGOT) 19 U/L (15-37); Alanine Aminotransfer ALT/SGPT 27 U/L (13-56); Albumin, Serum 3.5 g/dL (3.2-5.0); Alkaline Phosphatase 93 U/L (45-117); Anion Gap 5 (5-15); BUN 14 mg/dL (7-18); BUN/Creat Ratio 17.5 RATIO (10-20); Calcium,Total 9.6 mg/dL (8.5-10.1); Chloride 103 mmol/L (98-107); Cholesterol 196 mg/dL (200); EST Glomerular Filtration Rate 77 mL/min (>60); Est Glom Filt Rate - Afr Amer 93 mL/min (>60); Glucose 90 mg/dL (74-106); High Density Lipoprotein 65 mg/dL; Potassium 3.7 mmol/L (3.5-5.1); Protein, Total 7.5 g/dL (6.4-8.2); Sodium Level 137 mmol/L (136-145); Thyroid Stim Hormone (TSH) 0.43 uIU/mL (0.358-3.74); Triglycerides 128 mg/dL; Very Low Density Lipoprotein 26 mg/dL (5-40)
== END | disposition home or self-care (01) ==
LOC: LAB 07:35
PROVIDERS: PCP Family Medicine; Visit Provider Family Medicine
DX: Z00.00 Encounter for general adult medical examination without abnormal findings (principal); I10 Essential (primary) hypertension; E03.9 Hypothyroidism, unspecified; F32.9 Major depressive disorder, single episode, unspecified
CPT/HCPCS: 36415; 80053; 80061; 84443; 85025

== ENCOUNTER → 2021-12-06 | Outpatient (CLI) | payer OTHER, SELFPAY ==
--- NOTE | 2021-12-06 07:47 | BI_ITS ---
MAMMOGRAPHY - BILATERAL SCREENING REASON FOR EXAM: Female, 61 years old. Routine annual screening examination. PERTINENT HISTORY: Non-contributory. TECHNIQUE: Digital bilateral breast cruz (3D mammographic acquisition) in the CC and MLO projections. 2-D mediolateral oblique (MLO) and craniocaudad (CC) views of both breasts were obtained. CAD: Full Field Digital Mammography with Computer Added Detection was performed. COMPARISON: Comparison is made with prior study dated 11/29/2020 and 11/28/2019. FINDINGS: Breast Composition: The breasts are almost entirely fatty. There are no dominant masses or suspicious calcifications. Stable small benign appearing bilateral axillary lymph nodes. No other significant abnormalities are identified. There has been no significant change since the prior study. BI/SCRN MAMM (CAD)W/CRUZ BILAT IMPRESSION: Stable bilateral screening mammogram. Yearly follow-up mammogram recommended. (A) ASSESSMENT CATEGORY: BIRADS Category 2: Benign. A letter regarding these results will be sent to the patient by the facility within 30 days. Approximately 10% of breast cancers are not detected by mammography. A normal mammogram should not delay biopsy of a clinically suspicious abnormality. [id number] Electronically Signed: Yehuda Chino MD at 8:57 EDT ,
== END | disposition home or self-care (01) ==
LOC: OPBI 07:46
PROVIDERS: PCP Family Medicine; Visit Provider Family Medicine
DX: Z12.31 Encounter for screening mammogram for malignant neoplasm of breast (principal)
CPT/HCPCS: 77063; 77067

== ENCOUNTER → 2022-11-19 | Outpatient (CLI) | payer OTHER, SELFPAY ==
[2022-11-19 08:26] LABS: Absolute Lymphocyte Count 2.72 X10^3/uL (0.83-4.51); Absolute Neutrophil Count 6.1 X10^3/uL (2.0-7.7); Basophil# 0.13 X10^3/uL; Basophil% 1.2 % (0-1); Eosinophil# 0.72 X10^3/uL; Eosinophils% 6.8 % (0-5); Hematocrit 39.7 % (37-47); Hemoglobin 12.2 g/dL (12.0-15.0); Lymphocyte # 2.72 X10^3/ul (0.83-4.51); Lymphocyte % 25.8 % (19-41); Mean Corp Hgb Conc 30.7 g/dL (32-36); Mean Corpuscular Volume 87.8 fL (81-99); Mean Platelet Vol. 11.2 fl (6.2-12.0); Monocyte# 0.77 X10^3/uL; Monocyte% 7.3 % (0-10); NRBC Flagged by Analyzer 0 % (0-5); Neutrophil # 6.13 X10^3/uL (2.7-7.7); Neutrophil % 58.3 % (47-70); Platelet Count 294 K/mm3 (150-450); RBC Distribution Width CV 15.4 % (11.6-14.6); RBC Distribution Width SD 48.8 fl (35.1-43.9); Red Blood Count 4.52 M/mm3 (4.2-5.4); White Blood Count 10.5 K/mm3 (4.4-11.0)
[2022-11-19 09:16] LABS: ALB/GLOB Ratio 0.9 RATIO (0.9-2.4); AST(SGOT) 21 U/L (15-37); Alanine Aminotransfer ALT/SGPT 27 U/L (13-56); Albumin, Serum 3.5 g/dL (3.2-5.0); Alkaline Phosphatase 102 U/L (45-117); Anion Gap 5 (5-15); BUN 17 mg/dL (7-18); BUN/Creat Ratio 19.4 RATIO (10-20); Calcium,Total 9.3 mg/dL (8.5-10.1); Chloride 103 mmol/L (98-107); Cholesterol 180 mg/dL (200); Creatinine, Serum 0.88 mg/dL (0.55-1.02); EST Glomerular Filtration Rate 69 mL/min (>60); Est Glom Filt Rate - Afr Amer 84 mL/min (>60); Globulin 4.1 g/dL (2.2-4.2); Glucose 92 mg/dL (74-106); High Density Lipoprotein 64 mg/dL; Potassium 3.8 mmol/L (3.5-5.1); Protein, Total 7.6 g/dL (6.4-8.2); Sodium Level 139 mmol/L (136-145); Thyroid Stim Hormone (TSH) 1.76 uIU/mL (0.358-3.74); Triglycerides 141 mg/dL; Very Low Density Lipoprotein 28 mg/dL (5-40)
== END | disposition home or self-care (01) ==
PROVIDERS: PCP Family Medicine; Referring Provider Family Medicine; Visit Provider Family Medicine
DX: Z00.00 Encounter for general adult medical examination without abnormal findings (principal); E03.9 Hypothyroidism, unspecified; I10 Essential (primary) hypertension; F32.9 Major depressive disorder, single episode, unspecified
CPT/HCPCS: 36415; 80053; 80061; 84443; 85025

== ENCOUNTER → 2023-12-02 | Outpatient (CLI) | payer OTHER, SELFPAY ==
[2023-12-02 12:52] LABS: Absolute Lymphocyte Count 1.93 X10^3/uL (0.83-4.51); Absolute Neutrophil Count 5.3 X10^3/uL (2.0-7.7); Basophil# 0.11 X10^3/uL; Basophil% 1.3 % (0-1); Eosinophil# 0.65 X10^3/uL; Eosinophils% 7.6 % (0-5); Hematocrit 40.2 % (37-47); Hemoglobin 12.2 g/dL (12.0-15.0); Lymphocyte # 1.93 X10^3/ul (0.83-4.51); Lymphocyte % 22.6 % (19-41); Mean Corp Hgb Conc 30.3 g/dL (32-36); Mean Corpuscular Volume 88.9 fL (81-99); Mean Platelet Vol. 12.1 fl (6.2-12.0); Monocyte# 0.51 X10^3/uL; NRBC Flagged by Analyzer 0 % (0-5); Neutrophil # 5.28 X10^3/uL (2.7-7.7); Neutrophil % 61.7 % (47-70); Platelet Count 289 K/mm3 (150-450); RBC Distribution Width CV 15.4 % (11.6-14.6); Red Blood Count 4.52 M/mm3 (4.2-5.4); White Blood Count 8.6 K/mm3 (4.4-11.0)
[2023-12-02 13:13] LABS: ALB/GLOB Ratio 0.8 RATIO (0.9-2.4); AST(SGOT) 23 U/L (15-37); Alanine Aminotransfer ALT/SGPT 31 U/L (13-56); Albumin, Serum 3.3 g/dL (3.2-5.0); Alkaline Phosphatase 94 U/L (45-117); Anion Gap 4 (5-15); BUN 16 mg/dL (7-18); BUN/Creat Ratio 18.7 RATIO (10-20); Calcium,Total 9.9 mg/dL (8.5-10.1); Chloride 104 mmol/L (98-107); Cholesterol 192 mg/dL (200); Creatinine, Serum 0.86 mg/dL (0.55-1.02); EST Glomerular Filtration Rate 71 mL/min (>60); Est Glom Filt Rate - Afr Amer 86 mL/min (>60); Glucose 91 mg/dL (74-106); High Density Lipoprotein 66 mg/dL; Protein, Total 7.3 g/dL (6.4-8.2); Sodium Level 139 mmol/L (136-145); Thyroid Stim Hormone (TSH) 3.71 uIU/mL (0.358-3.74); Triglycerides 118 mg/dL; Very Low Density Lipoprotein 24 mg/dL (5-40)
== END | disposition home or self-care (01) ==
PROVIDERS: PCP Family Medicine; Referring Provider Family Medicine; Visit Provider Family Medicine
DX: Z00.00 Encounter for general adult medical examination without abnormal findings (principal); I10 Essential (primary) hypertension; E03.9 Hypothyroidism, unspecified; G25.2 Other specified forms of tremor; E66.9 Obesity, unspecified
CPT/HCPCS: 36415; 80053; 80061; 84443; 85025

== ENCOUNTER → 2024-01-05 | Outpatient (CLI) | payer OTHER, SELFPAY ==
--- NOTE | 2024-01-05 12:11 | BI_ITS ---
MAMMOGRAPHY - BILATERAL SCREENING REASON FOR EXAM: Female, 63 years old. Routine annual screening examination. PERTINENT HISTORY: Non-contributory. TECHNIQUE: Digital bilateral breast cruz (3D mammographic acquisition) in the CC and MLO projections. 2-D mediolateral oblique (MLO) and craniocaudad (CC) views of both breasts were obtained. CAD: Full Field Digital Mammography with Computer Added Detection was performed. COMPARISON: Comparison is made with prior study dated December 06, 2021 and November 29, 2020. FINDINGS: Breast Composition: The breasts are almost entirely fatty. There are no dominant masses or suspicious calcifications. Stable small benign appearing bilateral axillary lymph nodes. No other significant abnormalities are identified. There has been no significant change since the prior study. BI/SCRN MAMM (CAD)W/CRUZ BILAT IMPRESSION: Stable bilateral screening mammogram. Yearly follow-up mammogram recommended. (A) ASSESSMENT CATEGORY: BIRADS Category 2: Benign. A letter regarding these results will be sent to the patient by the facility within 30 days. Approximately 10% of breast cancers are not detected by mammography. A normal mammogram should not delay biopsy of a clinically suspicious abnormality. [id number] Electronically Signed: Yehuda Chino MD at 13:58 EDT ,
== END | disposition home or self-care (01) ==
LOC: OPBI 12:10
PROVIDERS: PCP Family Medicine; Referring Provider Family Medicine; Visit Provider Family Medicine
DX: Z12.31 Encounter for screening mammogram for malignant neoplasm of breast (principal)
CPT/HCPCS: 77063; 77067

== ENCOUNTER → 2024-11-01 | Outpatient (CLI) | payer MEDICARE, OTHER, SELFPAY ==
[2024-11-01 12:55] LABS: Hematocrit 37.8 % (37-47); Hemoglobin 11.9 g/dL (12.0-15.0); Immature Granulocytes Count 0.050 X10^3/uL (0.0-0.0); Mean Corp Hgb Conc 31.5 g/dL (32-36); Mean Corpuscular Volume 85.9 fL (81-99); Mean Platelet Vol. 12.6 fl (6.2-12.0); NRBC Flagged by Analyzer 0 % (0-5); Platelet Count 279 K/mm3 (150-450); RBC Distribution Width CV 15.6 % (11.6-14.6); RBC Distribution Width SD 48.5 fl (35.1-43.9); Red Blood Count 4.40 M/mm3 (4.2-5.4); White Blood Count 8.4 K/mm3 (4.4-11.0)
[2024-11-01 13:50] LABS: Cholesterol 189 mg/dL (<=200); Low Density Lipoprotein Calc. 107 mg/dL; Triglycerides 125 mg/dL; Very Low Density Lipoprotein 25 mg/dL (5-40); cholesterol:hdl ratio screen 3.33
[2024-11-01 14:13] LABS: AST(SGOT) 21 U/L (<=31); Alanine Aminotransfer ALT/SGPT 20 U/L (<=34); Albumin, Serum 4.1 g/dL (3.4-4.8); Alkaline Phosphatase 98 U/L (35-104); Anion Gap 13 (5-15); BUN 16 mg/dL (4-19); BUN/Creat Ratio 20.3 RATIO (10-20); Calcium,Total 10.0 mg/dL (7.6-11.0); Carbon Dioxide 25.6 mmol/L (21.0-32.0); Chloride 101 mmol/L (98-108); Globulin 3.3 g/dL (2.2-4.2); Glucose 91 mg/dL (70-99); Potassium 3.8 mmol/L (3.3-5.1)
== END | disposition home or self-care (01) ==
PROVIDERS: PCP Family Medicine; Visit Provider Family Medicine
DX: Z00.00 Encounter for general adult medical examination without abnormal findings (principal); I10 Essential (primary) hypertension; E03.9 Hypothyroidism, unspecified; G25.2 Other specified forms of tremor; E66.9 Obesity, unspecified
CPT/HCPCS: 36415; 80053; 80061; 84443; 85025

== ENCOUNTER → 2025-01-19 | Outpatient (CLI) | payer MEDICARE, OTHER, SELFPAY ==
--- NOTE | 2025-01-19 14:38 | BD_ITS ---
PROCEDURE: DEXA BONE DENSITY STUDY 01/19/2025 REASON FOR EXAM: Patient is postmenopausal F, age 64 y/o . TECHNIQUE: Procedure Code: BDDBD Modality: DX Procedure: DEXA BONE DENSITY STUDY COMPARISON: None FINDINGS: BMD and T-SCORES Lumbar spine: 1.147 g/cm2, T-score 1.2 Levels: L1 through L4 Left femoral neck: 1.082 g/cm2, T-score 2.1 Femoral neck comparison data not recommended for monitoring change. Left total hip: 1.290 g/cm2, T-score 2.9 Right femoral neck: 1.088 g/cm2, T-score 2.2 Right total hip: 1.201 g/cm2, T-score 2.1 The World Health Organization has defined the following categories based on bone density: Normal bone density: T-score equal to or greater than -1.0 Osteopenia: T-score between -1.0 and -2.5 Osteoporosis: T-score equal to or less than -2.5 FRAX (or Comparable) Fracture Risk Assessment: 10 Year Probability of Fracture: Major Osteoporotic Fracture: 22% Hip Fracture: 0.1% (Note: FRAX is not to be reported in setting of normal range bone density, osteoporosis on DEXA, known history of osteoporosis, prior osteoporotic hip or vertebral fracture, or for any patient undergoing pharmacological treatment for bone loss.) The National Osteoporosis Foundation (NOF) recommends pharmacological treatment for patients with a FRAX 10-year risk of 3% or higher for a hip fracture, or 20% or higher for a major osteoporotic fracture, to prevent osteoporosis and reduce fracture risk. The patient does meet the pharmacological treatment recommendations for prevention of osteoporosis. BD/Dexa Bone Density Study IMPRESSION: OSTEOPENIA. Recommend follow-up as clinically warranted. Reading Location: [id number]
--- NOTE | 2025-01-19 14:38 | BI_ITS ---
EXAM: SCRN MAMM (CAD)W/CRUZ BILAT DATE: 01/19/2025 CLINICAL HISTORY: F, Age 64 y/o , SCREENING TECHNIQUE: Procedure Code: [id number] Modality: MG Procedure: SCRN MAMM (CAD)W/CRUZ BILAT COMPARISON: Prior exam(s) dated 01/05/2024, 12/06/2021, 11/29/2020. FINDINGS: TISSUE DENSITY: The breasts are almost entirely fatty. Bilateral Breast Mammographic Findings: No significant masses, calcifications or other abnormalities are identified. BI/SCRN MAMM (CAD)W/CRUZ BILAT IMPRESSION: There is no mammographic evidence of malignancy. OVERALL FINAL ASSESSMENT BI-RADS 1: NEGATIVE. RECOMMENDATION: Routine annual follow-up in 1 Year A letter with findings and recommendations will be mailed to the patient. Reading Location: [id number]
== END | disposition home or self-care (01) ==
LOC: OPBD 14:36
PROVIDERS: PCP Family Medicine; Referring Provider Family Medicine; Visit Provider Family Medicine
DX: Z12.31 Encounter for screening mammogram for malignant neoplasm of breast (principal); Z78.0 Asymptomatic menopausal state; M81.0 Age-related osteoporosis without current pathological fracture
CPT/HCPCS: 77063; 77067; 77080